=== PATIENT | female | born 1940 | race Caucasian/White ===

== ENCOUNTER → 2017-11-03 12:39 | Outpatient (CLI) | payer MEDICARE, OTHER ==
[~2017-11-03 12:39] MED LIST: NORVASC10 MG PO; PRAVACHOL80 MG PO
== END | disposition home or self-care (01) ==
LOC: D.US 12:39
DX: I65.23 Occlusion and stenosis of bilateral carotid arteries (principal)

== ENCOUNTER → 2018-04-23 09:06 | Outpatient (CLI) | payer MEDICARE, OTHER ==
--- NOTE | ~2018-04-23 | EC ---
PATIENT:WILLIAMS GARCIA DATE OF SERVICE: 04/23/18 SEX: F MEDICAL RECORD: [id number] DATE OF : 40 [facility] AGE OF PATIENT: 77 ADMISSION DATE: 04/23/18 REFERRING PHYSICIAN: INTERPRETING PHYSICIAN: ALTAF OLVERA MD ECHOCARDIOGRAM REPORT ECHO CHARGES 4 ECHO COMPLETE Date: 04/23 CLINICAL DIAGNOSIS: A-FIB/HTN/PALPITATIONS/CP ECHOCARDIOGRAPHIC MEASUREMENTS (adult normal given) AC root (d.<3.7cm) 3.3 cm LV Septum d (<1.2 cm> 1.1 cm Valve Excursion 1.9 cm LV Septum (systole) 1.5 cm Left Atria (s.<4.0cm> 3.5 cm LVPW d(<1.2cm) 1.2 cm RV (d.<2.3cm) 2.5 cm LVPW (sytole) 1.7 cm LV diastole(<5.6CM) 5.2 cm MV E-F(>70mm/sec) cm LV systole 4.0 cm LVOT Diameter 1.8 cm MV exc.(>10mm) cm Est.ejection fraction (50-75%) % DOPPLER: LVIT cm/sec A 55.0 cm/sec E 77.0 cm/sec LA cm/sec RVSP 40.0 mmHg LVOT 92.0 cm/sec AOP1/2T m/s Asc. Ao 105 cm/sec RVOT 52.0 cm/sec RA cm/sec PA 70.0 cm/sec AV Gradient Peak 4.4 mmHg AV Mean 2.1 mmHg AV Area 2.2 cm MV Gradient Peak 4.7 mmHg MV Mean 1.9 mmHg MV Area cm COMMENTS: [place] Instructor: Mp NGDSOE Instrument Tech: Mayur Olvera TAPE# PACS Pericardial Effusion N DATE OF SERVICE: PROCEDURE: Transthoracic echocardiogram. FINDINGS: 1. The left ventricle has moderate concentric left ventricular hypertrophy. The patient has grade II diastolic dysfunction. The patient has evidence of mild hypokinesis in the anterior septal region. Overall, ejection fraction is 40% to 45%. 2. Left atrium is normal size, shape and function. ECHOCARDIOGRAM REPORT [id number] WILLIAMS GARCIA 3. Aortic valve is normal. 4. The mitral valve has trace mitral regurgitation. 5. Tricuspid valve has trace regurgitation with an RVSP of 40 mmHg. 6. The right ventricle is normal size, shape and function. 7. The right atrium is normal size, shape and function. 8. There is no pericardial effusion. 9. The IVC is shown to be appropriate size and collapses. CONCLUSION: The patient has evidence of possible regional wall motion abnormalities with mildly decreased left ventricular ejection fraction, may be consistent with prior infarction. Further evaluation may be helpful. TRANSINT:[id number] Voice Confirmation ID: [id number] DOCUMENT ID: [id number] ALTAF OLVERA MD at 0719 CC: [id number] DICTATION DATE: 04/26/18 1055 DIRECTOR PRIVATE: 04/26/18 1305 DEP CLI 04/23/18 [address] [place] [address]
[~2018-04-23 09:06] MED LIST changes: +CORDARONE200 MG PO; +LEVOTHYROXINE50 MCG PO; +LISINOPRIL10 MG PO; +PLAVIX75 MG PO
== END | disposition home or self-care (01) ==
LOC: D.ECHO 09:06
DX: I48.91 Unspecified atrial fibrillation (principal); I10 Essential (primary) hypertension; R00.2 Palpitations; R07.9 Chest pain, unspecified; I73.9 Peripheral vascular disease, unspecified

== ENCOUNTER → 2018-05-12 06:49 | Outpatient (CLI) | payer MEDICARE, OTHER ==
[~2018-05-12] VITALS: Ht 152.4 cm; Wt 76.4 kg
--- NOTE | ~2018-05-12 | HEMODYNAMI ---
PATIENT:WILLIAMS GARCIA MEDICAL RECORD: [id number] : 40 LOCATION:[facility] ADMISSION DATE: 05/12/18 Generatedon:05/12/201810:43 Patient name: WILLIAMS GARCIA Patient #: [id number] SSN: : 1940 Date of study: 05/12/2018 Page: Of Hemodynamic Procedure Report Patient Data Patient Demographics Procedure consent was obtained First Name: WILLIAMS Gender: Female Last Name: JOSE : 1940 Middle Initial: A Age: 77 year(s) Patient #: [id number] Race: Unknown Additional ID: [id number] Contact details Address: [address] [place] [address] ROAD State: [place] City: [place] Zip code: [address] Past Medical History Allergies Allergen Reaction Date Comments Reported Other allergy 05/12/2018 AZITHROMYCIN, CRESTOR, LIPITOR Admission Admission Data Admission Date: 05/12/2018 Admission Time: 6:49 Height (in.): 5.7 BSA: 0.31 (m2) Height (cm.): 14.48 BMI: 3613.81 (kg/m2) Weight (lbs.): 167 Weight (kg.): 75.75 Lab Results Lab Result Date: 05/12/2018 Lab Result Time: 0:00 Biochemistry Name Units Result Min Max BUN mg/dl 14 --(--*-)-- 7 18 Creatinine mg/dl 0.9 --(-*--)-- 0.6 1.3 CBC Name Units Result Min Max Hemoglobin g/dl 16.1 --(--*-)-- 13.5 17.5 Procedure Procedure Types Cath Procedure Diagnostic Procedure LHC LHC w/Coronaries Peripheral Cath Diagnostic Procedure Cath Peripheral Four Vessel Arteriogram Renal Arteriogram Peripheral vascular Intervention Stent Stent-Arterial Inititial Procedure Description Procedure Date Procedure Date: 05/12/2018 Procedure Start Time: 9:00 Procedure End Time: 10:26 Procedure Staff Name Function Maximo Denney RN Speed Winder Nancy Peace RN Nurse Jaida Ag RT Scrub Cristo Porras MD Performing Physician Tommy Escobar RN Nurse Ariella Contreras RT Monitor Procedure Data Cath Procedure Fluoroscopy Diagnostic fluoroscopy Total fluoroscopy Time: time: 20.4 min 20.4 min Diagnostic fluoroscopy Total fluoroscopy dose: 939 dose: 939 mGy mGy Contrast Material Contrast Material Type Amount (ml) Isovue 370 170 Entry Location Entry Primary Successful Side Size Upsize Upsize Entry Closure Succes sful Closure Location (Fr) 1 (Fr) 2 (Fr) Remarks Device Remarks Femoral Right 5 Fr 6 Fr Exoseal artery Long Estimated blood loss: 10 ml Diagnostic catheters Device Type Used For End Catheter Placement MULTIPACK JL 4.0 5Fr Procedure catheter MULTIPACK 3DRC 5Fr Procedure catheter MULTIPACK Pigtail 5 Fr Procedure catheter MULTIPACK 3DRC 5Fr Procedure catheter Procedure Complications No complications Procedure Medications Medication Administration Route Dosage 0.9% NaCl I.V. 100 ml/hr Oxygen etCO2 Nasal cannula 2 l/min Heparin Flush Bag added to field 2 bags (1000units/500ml NS) Lidocaine 2% added to field 20 Versed I.V. 1 mg Fentanyl I.V. 50 mcg Vasotec I.V. 1.25 mg Heparin Bolus I.V. 2000 units Heparin Bolus I.V. 4000 units Nitroglycerin IC/IA I.A. 300 mcg Nitroglycerin IC/IA I.A. 300 mcg Hydralizine I.V. 20 mg Fentanyl I.V. 25 mcg Plavix P.O. 300 mg Fentanyl I.V. 25 mcg Zofran I.V. 4 mg Hemodynamics Rest BSA: 0.31 (m2) HGB: 16.1 (g/dl) O2 Consumption: Estimated: 27.82 (ml/min) O2 Con sumption indexed: Estimated:89.74 (ml/min/m) Heart Rate: 68 (bpm) Pressure Samples Time Site Value (mmHg) Purpose Heart Use Rate(bpm) 9:28 LV 199/17,27 EDP 70 9:28 LV 202/-1,22 EDP 70 10:05 AO 200/82(129) Snapshot 71 10:05 AO 200/80(128) Snapshot 71 Gradients Valve Time Site Site Mean SEP/DFP Peak To Heart Use 1 2 (mmHg) (sec/min) Peak Rate (mmHg) (bpm) Aortic 9:29 LV AO 72 Snapshots Pre Cath Intra NCS Post Cath Vital Signs Time Heart Resp SPO2 etCO2 NIBP (mmHg) Rhythm Pain Sedation Rate (ipm) (%) (mmHg) Status Level (bpm) 8:49:29 80 19 91 39.1 230/102(181) NSR 0 (11) 10(A) , No pain 8:54:17 79 14 90 0.7 198/92(159) NSR 0 (11) 9(A) , No pain 8:59:51 74 17 92 0.7 196/87(158) NSR 0 (11) 9(A) , No pain 9:05:25 71 15 92 19.5 185/73(140) NSR 0 (11) 9(A) , No pain 9:10:12 70 16 91 1.5 179/76(139) NSR 0 (11) 9(A) , No pain 9:15:01 71 16 92 0 177/76(143) NSR 0 (11) 9(A) , No pain 9:19:50 72 19 96 41.3 182/81(149) NSR 0 (11) 9(A) , No pain 9:24:41 72 14 92 0 186/80(153) NSR 0 (11) 9(A) , No pain 9:30:39 71 15 94 26.3 175/85(143) NSR 0 (11) 9(A) , No pain 9:35:28 71 19 93 26.3 176/82(138) NSR 0 (11) 9(A) , No pain 9:40:16 68 20 98 18.8 184/85(148) NSR 0 (11) 9(A) , No pain 9:45:05 71 19 97 28.6 203/89(168) NSR 0 (11) 9(A) , No pain 9:50:43 68 19 96 27.8 195/84(151) NSR 0 (11) 9(A) , No pain 9:55:34 66 19 97 19.5 199/85(147) NSR 0 (11) 9(A) , No pain 10:00:25 71 15 94 0 199/91(150) NSR 0 (11) 9(A) , No pain 10:05:22 65 19 98 19.5 202/77(163) NSR 0 (11) 9(A) , No pain 10:10:56 70 14 97 9 196/93(150) NSR 0 (11) 9(A) , No pain 10:15:38 70 16 98 34.6 164/75(134) NSR 0 (11) 9(A) , No pain 10:20:21 74 13 98 32.3 142/50(93) NSR 0 (11) 10(A) , No pain 10:25:08 73 12 98 24 140/60(110) NSR 0 (11) 10(A) , No pain Medications Time Medication Route Dose Verified Delivered Reason Notes Effectiveness by by 8:50:26 0.9% NaCl I.V. 100 Tommy Tommy Per physician ml/hr Shawn Escobar RN RN 8:50:36 Oxygen etCO2 2 Tommy Tommy Per physician Nasal l/min Shawn Escobar cannula RN RN 8:50:51 Heparin Flush added 2 Tommy Tommy used for Bag to bags Lorigan Shawn procedure (1000units/500ml field RN RN NS) 8:51:02 Lidocaine 2% added 20ml Tommy Tommy for local to vial Lorigan Lorigan anesthetic field RN RN 8:51:19 Versed I.V. 1 mg Tommy Tommy for sedation Shawn Escobar RN RN 8:51:27 Fentanyl I.V. 50 Tommy Tommy for sedation mcg Shawn Escobar RN RN 9:35:22 Vasotec I.V. 1.25 Tommy Tommy for mg Lorigan Shawn hypertension RN RN 9:40:04 Heparin Bolus I.V. 2,000 Tommy Tommy for units Lorigan Lorigan anticoagulation RN RN 9:48:51 Heparin Bolus I.V. 4000 Tommy Tommy for units Lorigan Lorigan anticoagulation RN RN 9:53:08 Nitroglycerin I.A. 300 Tommy Cristo for IC/IA mcg Shawn Porras MD hypertension RN 10:08:14 Nitroglycerin I.A. 300 Tommy Cristo for IC/IA mcg Shawn Porras MD hypertension RN 10:11:23 Hydralizine I.V. 20 mg Tommy Tommy for Lorigan Lorene hypertension RN RN 10:15:44 Fentanyl I.V. 25 Tommy Tommy for sedation mcg Shawn Escobar RN RN 10:16:27 Plavix P.O. 300 Tommy Tommy for mg Shawn Escobar antiplatelet RN RN therapy 10:24:13 Fentanyl I.V. 25 Tommy Tommy for back pain mcg Shawn Escobar RN RN 10:38:55 Zofran I.V. 4 mg Tommy Tommy for nausea Shawn Escobar RN lye peel operator Log Time Note 8:34:50 Maximo Denney RN sent for patient. Start room use. 8:34:51 Time tracking: Regular hours (M-F 7:00 - 5:00) 8:34:55 Plan of Care:Hemodynamics will remain stable., Cardiac rhythm will remain stable., Comfort level will be maintained., Respiratory function will remain adequate., Patient/ family verbilizes understanding of procedure., Procedure tolerated without complication., Recovers from procedure without complications.. 8:34:56 Signed procedure consent form obtained from patient. 8:37:48 Patient allergic to Other allergyAZITHROMYCIN, CRESTOR, LIPITOR 8:39:14 Lab Result : Hemoglobin 16.1 g/dl 8:39:14 Lab Result : Creatinine 0.9 mg/dl 8:39:14 Lab Result : BUN 14 mg/dl 8:39:26 Patient Height : 5.7 inches 8:39:34 Patient Weight : 167 lbs 8:41:50 Patient received from Pre/Post Procedure Room to CCL 1 Alert and oriented. Tansferred to table in Supine position. 8:41:52 Correct patient and procedure confirmed by team. 8:41:52 Warm blankets applied, and lucas hugger turned on for patient comfort. 8:41:53 ECG and BP/O2 sat monitors applied to patient. 8:45:18 H&P Date Dictated: 05/06/2018 Within 30 days and on chart., H&P Addendum completed by physician on day of procedure. (MUST COMPLETE FOR ALL OUTPATIENTS). 8:45:43 Pre-op teaching completed and patient verbalized understanding. 8:45:43 Pre-procedure instructions explained to patient. 8:45:46 Family in waiting room. 8:45:48 Patient NPO since Midnight. 8:45:49 Is the patient allergic to Iodine/contrast media? No. 8:45:50 Is patient on blood thinner?Yes 8:45:52 ACC The patient was administered the following blood thiners within the last 24 hours: ACCPlavix 8:45:54 Patient diabetic? No. 8:45:57 Previous problem with sedation/anesthesia? No ? 8:45:58 Snore? Yes 8:45:59 Sleep apnea? No 8:46:00 Deviated septum? No 8:46:01 Opens mouth fully? Yes 8:46:02 Sticks out tongue? Yes 8:46:08 Airway obstruction? Yes COPD 8:46:11 Dentures? No ? 8:46:35 Patient pain scale 0/10 ?. 8:46:42 Pre procedure: right dorsailis pedis pulse 2+ Normal; easily identifiable; not easily obliterated 8:46:44 Pre procedure: left dorsailis pedis pulse 2+ Normal; easily identifiable; not easily obliterated 8:47:41 Vital chart was started 8:48:38 Baseline sample Acquired. 8:48:50 Baseline sample Acquired. 8:49:28 IV patent on arrival in right antecubital with 0.9% NaCl at KVO. 8:49:30 Lab results completed and on chart. 8:49:41 Right groin area was prepped with chlora-prep and draped in sterile fashion 8:49:42 Sharps counted by scrub and verified by R.N. 8:49:42 Alarms reviewed by R. N. 8:49:47 Baseline sample Acquired. 8:49:50 Full Disclosure recording started 8:49:59 Baseline sample Acquired. 8:50:03 Rhythm: sinus rhythm 8:50:09 Use device set Femoral Dx 8:50:10 ACIST Syringe (15481) opened to sterile field. 8:50:11 Bag Decanter () opened to sterile field. 8:50:13 ACIST Manifold (33681) opened to sterile field. 8:50:13 ACIST Hand Control (56034) opened to sterile field. 8:50:14 Tegaderm 4 x 4 (1626W) opened to sterile field. 8:50:16 SHEATH Prelude 5Fr 0.035 (EBL-9T-25-035) opened to sterile field. 8:50:17 MICROPUNCTURE 4FR Cook (N14291) opened to sterile field. 8:50:18 Medline Cath Pack ([id number]) opened to sterile field. 8:50:19 DIAGNOSTIC Multipack 5Fr catheter set (CG4466) opened to sterile field. 8:50:19 DIAGNOSTIC WIRE .035 260cm J wire (641439) opened to sterile field. 8:50:25 Physician arrived 8:50:26 Final Timeout: patient, procedure, and site verified with staff and physician. All members of the team are in agreement. 8:50:26 --------ALL STOP TIME OUT------ 8:50:26 0.9% NaCl 100 ml/hr I.V. was administered by Tommy Escobar RN; Per physician; 8:50:29 Right groin site verified by team. 8:50:31 Physical assessment completed. ASA score P 2 - A patient with mild systemic disease as per Cristo Porras MD. 8:50:35 Sedation plan: IV Moderate Sedation Medication:Versed, Fentanyl 8:50:36 Oxygen 2 l/min etCO2 Nasal cannula was administered by Tommy Escobar RN; Per physician; 8:50:51 Heparin Flush Bag (1000units/500ml NS) 2 bags added to field was administered by Tommy Escobar RN; used for procedure; 8:51:02 Lidocaine 2% 20ml vial added to field was administered by Tommy Escobar RN; for local anesthetic; 8:51:19 Versed 1 mg I.V. was administered by Tommy Escobar RN; for sedation; 8:51:27 Fentanyl 50 mcg I.V. was administered by Tommy Escobar RN; for sedation; 8:59:04 Zero performed for pressure channel P1 8:59:24 Procedure started. 9:00:03 Local anesthetic to right femoral artery with Lidocaine 2% by Cristo Porras MD.INITIAL ACCESS ONLY 9:06:20 Access obtained with 4Fr micropunture. 9:06:36 A 5 Fr sheath was inserted into the Right Femoral artery 9:07:14 A MULTIPACK JL 4.0 5Fr catheter was advanced over the wire and used for Procedure. 9:10:36 Catheter exchanged over wire. 9:11:42 A MULTIPACK 3DRC 5Fr catheter was advanced over the wire and used for Procedure. 9:13:07 RCA angiography performed. 9:13:51 Right carotid angiography performed. 9:16:45 Left carotid angiography performed. 9:25:28 Right renal angiography performed. 9:25:28 Left renal angiography performed. 9:26:11 Catheter exchanged over wire. 9::33 A MULTIPACK Pigtail 5 Fr catheter was advanced over the wire and used for Procedure. 9::27 LV gram done using DUGAN 9::31 Injector settings: Ml/sec: 12, Volume: 8, 9:28:52 LV hemodynamics recorded. 9:30:26 EF : 70 % 9:30:27 Catheter exchanged over wire. 9:33:49 COPILOT Valve Control (0051326) opened to sterile field. 9:34:08 GLIDE WIRE ANGLE 260cm (QQ3984) opened to sterile field. 9:34:18 A MULTIPACK 3DRC 5Fr catheter was advanced over the wire and used for Procedure. 9:35:22 Vasotec 1.25 mg I.V. was administered by Tommy Escobar RN; for hypertension; 9:36:45 TORQUE DEVICE PLASTIC .038 ( TD01) opened to sterile field. 9:39:35 Catheter exchanged over wire. 9:39:56 SHEATH 6FR Brite Tip 90cm ([id number]) opened to sterile field. 9:40:04 Heparin Bolus 2,000 units I.V. was administered by Tommy Escobar RN; for anticoagulation; 9:41:38 Sheath upsized to a 6 Fr Long. 9:44:18 GLIDE WIRE ADVANCED 9:46:17 INFLATOR Merit Leonora (VN7990) opened to sterile field. 9:48:51 Heparin Bolus 4000 units I.V. was administered by Tommy Escobar RN; for anticoagulation; 9:49:21 Wire advanced across lesion. 9:49:42 Inflate balloon Inflation number: 1 A POWERFLEX PRO 4.0 x 40 x 135cm balloon ([id number]) was prepped and advanced across the Proximal Subclavian, Left, then inflated to 10 HOLDEN for 0:00 (min:sec). 9:51:14 Balloon removed over the wire. 9:53:08 Nitroglycerin IC/IA 300 mcg I.A. was administered by Cristo Porras MD; for hypertension; 9:55:26 Place stent Inflation Number: 2 A HAYLEE 6 x 39 x 135 stent ([id number]) was prepped and advanced across the Proximal Subclavian, Left. The stent was deployed at 10 HOLDEN for 0:00 (min:sec). 9:57:44 Stent catheter was removed intact over wire. 10:00:39 Inflate balloon Inflation number: 3 A POWERFLEX PRO 7.0 x 20 x 135 cm balloon ([id number]) was prepped and advanced across the Proximal Subclavian, Left, then inflated to 4 HOLDEN for 0:00 (min:sec). 10:01:09 Inflation number: 4 The POWERFLEX PRO 7.0 x 20 x 135 cm balloon ([id number]) was reinflated across the Proximal Subclavian, Left, to 8 HOLDEN for 0:00 (min:sec). 10:02:42 Inflation number: 5 The POWERFLEX PRO 7.0 x 20 x 135 cm balloon ([id number]) was reinflated across the Proximal Subclavian, Left, to 13 HOLDEN for 0:00 (min:sec). 10:03:28 Balloon removed over the wire. 10:05:29 SHEATH 6FR [place] (QWZ993) opened to sterile field. 10:06:05 LONG SHEATH EXCHANGED FOR SHORT SHEATH 10:06:24 EXOSEAL 6Fr (EX600) opened to sterile field. 10:08:14 Nitroglycerin IC/IA 300 mcg I.A. was administered by Cristo Porras MD; for hypertension; 10:11:07 Procedure type changed to Cath procedure, Diagnostic procedure, LHC, LHC w/Coronaries, Peripheral Cath Diagnostic Procedure, Cath Peripheral, Four Vessel Arteriogram, Renal Arteriogram, Peripheral vascular Intervention, Stent, Stent-Arterial Inititial 10:11:23 Hydralizine 20 mg I.V. was administered by Tommy Escobar RN; for hypertension; 10:13:33 Sheath removed intact; hemostasis achieved with Exoseal to the Right Femoral artery. 10:13:34 Procedure ended.(Physican Out) 10:14:33 Fluoroscopy time 20.40 minutes. 10:14:37 Fluoroscopy dose: 939 mGy 10:14:37 Flurop Dose total: 939 10:15:44 Fentanyl 25 mcg I.V. was administered by Tommy Escobar RN; for sedation; 10:15:55 Contrast amount:Isovue 370 170ml. 10:15:57 Sharps counted by scrub and verified by R.N. 10:16:02 Post-op/insertion site Right Femoral artery dressed using a 4 x 4 and Tegaderm. 10:16:27 Plavix 300 mg P.O. was administered by Tommy Escobar RN; for antiplatelet therapy; 10::38 Post-procedure physical assessment completed. ASA score P 2 - A patient with mild systemic disease as per Cristo Porras MD. 10:22:40 Post procedure rhythm: unchanged. 10::42 Estimated blood loss: 10 ml 10::44 Patient needs reinforcement of post procedure teaching. ::44 Post procedure instruction explained to patient.Patient verbalizes understanding. 10:22:53 FEMSTOP Gold (P29114) opened to sterile field. 10:22:59 Femstop placed over the right femoral artery at 170 mmHg. Hemostasis achieved. 10:24:13 Fentanyl 25 mcg I.V. was administered by Tommy Escobar RN; for back pain; 10:26:02 Procedure and supply charges have been captured, reviewed, submitted and are correct. 10:26:04 Procedure Complication : No complications 10:26:06 See physician's report for complete and final results. 10:26:06 Vital chart was stopped 10::08 Report given to Pre/Post Procedure Room. 10:26:11 Patient transfered to Pre/Post Procedure Room with Bed. 10:26:13 Full Disclosure recording stopped 10:26:13 Procedure ended. 10:26:19 End room use (Document Last) 10:38:55 Zofran 4 mg I.V. was administered by Tommy Escobar RN; for nausea; Intervention Summary Intervention Notes Time ActionType Lesion and Equipment Action# Pressure Duration Attributes Used 9:49:42 Inflate Proximal POWERFLEX 1 10 00:00 balloon Subclavian, PRO 4.0 x Left 40 x 135cm balloon ([id number]) 9:55:26 [address] stent Proximal HAYLEE 6 x 2 10 00:00 Subclavian, 39 x 135 Left stent ([id number]) 10:00:39 Inflate Proximal POWERFLEX 3 4 00:00 balloon Subclavian, PRO 7.0 x Left 20 x 135 cm balloon ([id number]) 10:01:09 Reinflate Proximal POWERFLEX 4 8 00:00 balloon Subclavian, PRO 7.0 x Left 20 x 135 cm balloon ([id number]) 10:02:42 Reinflate Proximal POWERFLEX 5 13 00:00 balloon Subclavian, PRO 7.0 x Left 20 x 135 cm balloon ([id number]) Device Usage Item Name Manufacture Quantity Catalog Number Hospital Part Current M inimal Lot# / Charge Number Stock Stock Serial# Code ACIST Syringe Acist 1 63392 645608 940013 152564 2 0 (78557) [employer] Bag Decanter Microtek 1 2001S 296525 38685 428547 5 (2001S) Medical Inc. ACIST Hand Acist 1 47943 983140 053621 240824 5 Control (11094) [employer] ACIST Manifold Acist 1 83311 483029 593847 763713 5 (23915) [employer] Tegaderm 4 x 4 3M 1 1626W 085126 181178 086571 5 (1626W) SHEATH Prelude Merit 1 [place]-3A-53-035 815280 020347 628039 5 5Fr 0.035 Medical (XQE-2B-33-035) MICROPUNCTURE Cook Medical 1 M26664 336913 257267 153367 5 4FR [employer] (F93726) Medline Cath Cardinal 1 [id number] 335287 33999 165875 5 Pack Health ([id number]) DIAGNOSTIC WIRE St Roc 1 139122 544480 203634 024536 3 0 .035 260cm J wire (033849) DIAGNOSTIC Cardinal 1 GT8485 832071 63811 042598 3 0 Multipack 5Fr Health catheter set (XG1882) MULTIPACK JL Cardinal 1 957616 5 4.0 5Fr Health catheter MULTIPACK 3DRC Cardinal 1 540188 5 5Fr catheter Health MULTIPACK Cardinal 1 695949 5 Pigtail 5 Fr Health catheter COPILOT Valve [place] 1 3320101 891865 965792 259388 5 Control Vascular (7481985) GLIDE WIRE Terumo 1 LK7704 255641 722946 635686 5 ANGLE 260cm (SW1102) TORQUE DEVICE Hunters 1 TD01 391411 663644 843182 5 PLASTIC .038 ( Scientific TD01) SHEATH 6FR Cardinal 1 [id number] 782279 674919 780215 5 Brite Tip 90cm Health (507602Y) INFLATOR Merit Merit 1 AH6906 875894 571765 494600 1 5 [place] (GL5222) POWERFLEX PRO Cardinal 1 [id number] 343332 985563 602964 5 4.0 x 40 x Health 135cm balloon (4012723R) HAYLEE 6 x 39 Cardinal 1 [id number] 724797 31018 181496 5 x 135 stent Health ([id number]) POWERFLEX PRO Cardinal 1 [id number] 041041 933303 338198 5 7.0 x 20 x 135 Health cm balloon (8254570E) SHEATH 6FR Terumo 1 CUS447 263983 004289 804791 4 0 [place] (LJE029) EXOSEAL 6Fr Cardinal 1 EX600 758816 174106 277089 1 0 (EX600) Health FEMSTOP Gold St Roc 1 H56396 727102 473504 825167 5 ([id number]) Signature Audit [place] Stage Time Signature Unsigned Intra-Procedure 05/12/2018 Ariella Contreras 10:30:10 AM RT(R) RT(R) 05/12/2018 10:38:24 AM Intra-Procedure 05/12/2018 Ariella Contreras 10:43:32 AM RT(R) Signatures Monitor : Ariella Contreras Signature : RT Date : Time : [address] [place] [address]
--- NOTE | ~2018-05-12 | OP ---
PATIENT NAME: WILLIAMS GARCIA MEDICAL RECORD: [id number] :40 LOCATION:D[facility] ADMISSION DATE: SURGEON: ALTAF OLVERA MD DATE OF OPERATION: 05/12/2018 PROCEDURE: Left heart catheterization, left ventriculogram, coronary angiogram, 4-vessel angiogram, ORE SMELTER of the left subclavian times 4, intra-arterial stenting of the left subclavian post-stenting angioplasty. DESCRIPTION OF PROCEDURE: The patient was brought into the cardiac catheterization lab in stable condition. Both groins were sterilely prepped and draped. The patient had a 6-[place] sheath placed into the right common femoral artery in a retrograde fashion. The patient then had a coronary diagnostic catheter utilized to intubate the left coronary artery, the right coronary artery, and the left ventricular cavity respectively and angiography was performed in multiple projections. We then turned our attention to the 4-vessel angiography where we were able to intubate the innominate artery and angiography was performed in multiple projections, including selective angiography of the vertebral artery and the right common carotid artery. We then placed the catheter selectively into the left subclavian vessel and selectively into the left common carotid artery and angiography was performed in multiple projections. We then pulled the catheter into the abdominal aorta where we selectively engaged the left renal artery and the right renal artery respectively. Angiography was performed in 2 projections. We then did pullback angiography and pressure gradients across the abdominal aorta and with runoff into the right iliac system and the right common femoral artery looking at the sheath insertion site. We then turned our attention to interventional purposes and we exchanged the diagnostic catheters for a long glide sheath that was 6-[place]. We intubated the left subclavian artery, which was 100% occluded. We were then able to use a wire atherectomy and penetrate to the 100% occlusion of the left subclavian artery and get distal wire position with a 0.035 inch Glidewire. We were then able to take a 4.0 x 40 balloon into the area of 100% stenosis and deployed at nominal pressures. We were then able to exchange the balloon for a 6.0 x 39 stent balloon expandable and taking that to nominal pressures. We were then able to take a 7.0 x 20 into the distal stent aspect and we were able to expand that to nominal pressures to a final dimension of 6.8. We were then able to take it at higher nominal pressures in the mid and ostium of the stent to a final dimension of 7. We were then able to take post-view angiography. Intra-arterial nitroglycerin was given for a total of 600 mcg through the procedure. Procedure was terminated successfully. FINDINGS: 1. The left main has heavy calcified plaquing with mild stenosis in the range of 40%. 2. The LAD is shown to have the continuation of the heavy calcification into the ostium and proximal portion of the vessel with resultant stenosis of 40%. The mid and distal vessel of the LAD is also heavily calcified with a distal 50% to 60% stenosis. 3. The circumflex is shown to have continuation of the left main, heavy calcification with a 60% stenosis in the mid vessel and there were angiographic characteristics suggestive of higher grade stenosis in the mid vessel of the circumflex, possibly 70% and certainly an intermediate lesion. OPERATIVE REPORT [id number] WILLIAMS GARCIA 4. The RCA is a small nondominant vessel with a 50% diffuse stenosis. 5. The innominate artery is widely patent and large vessel, heavily calcified. 6. The right common carotid artery is shown to have distal plaquing. 7. The right subclavian vessel is shown to have 30% stenosis. 8. The right internal mammary artery is widely patent. 9. The right vertebral artery is widely patent and actually a large sized vessel and it is shown to collateralize via the basilar system into the left vertebral. The left vertebral is retrograde flow and fills the left subclavian vessel, which is 100% occluded in the ostium. 10. The right external carotid artery is 100% occluded. 11. Intracerebral portion of the right system shows no crossover and the middle cerebral artery is widely patent. 12. The left subclavian artery is 100% occluded. 13. Left common carotid artery has mild plaquing. 14. The left external carotid artery is widely patent with mild atherosclerotic changes. 15. The left external carotid artery is widely patent. 16. The left renal artery is widely patent. No evidence of renal artery stenosis. 17. The right renal artery is widely patent. No evidence of renal artery stenosis. 18. The intra-abdominal, subrenal abdominal aorta is widely patent with moderate calcification with moderate atherosclerotic changes into the bilateral right and left common iliac artery. The right external iliac artery is widely patent as well as the right common femoral artery. HEMODYNAMICS: 1. The left ventricular ejection fraction is 70%, hyperdynamic, and EDP was mildly elevated at 15 to 20 mmHg, post the aortic notch was shown to be normal. 2. There is no gradient across the aortic valve. 3. There is no significant mitral regurgitation. INTERVENTION: The left subclavian artery is 100% occluded. Status post angioplasty was 60% occluded. Status post stenting and status post stenting angioplasty reduced that stenosis to less than 5% residual. No gradient across the stented portion and excellent flow reversal of vertebral artery flow from retrograde to antegrade. 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 Diffuse calcific atherosclerotic changes throughout the cerebrovascular system as well as the abdominal aorta and thoracic aorta. Preserved left ventricular systolic function. RECOMMENDATIONS: Can continue aggressive antihypertensive control, dual antiplatelet therapy for at least 60-90 days, treat medically the intermediate stenosis of the coronary bed at this point in time. However, despite aggressive medical management, the patient still has significant symptoms. It would be reasonable to go forward with possible angioplasty and stenting of the circumflex in the near future. TRANSINT:[id number] Voice Confirmation ID: [id number] DOCUMENT ID: [id number] OPERATIVE REPORT [id number] WILLIAMS GARCIA,ALTAF Juan MD at 1127 CC: [id number] DICTATION DATE: 05/12/18 1030 TYPEWRITER MECHANIC: 05/12/18 1108 [facility] [address] [place] [address]
[2018-05-12 07:27] VITALS: BP 163/90; Ht 152.4 cm; Wt 76.4 kg
[2018-05-12 07:28] LABS: BASOPHILS 0.3 % (0-2); EOSINOPHILS 1.8 % (0-7); HEMATOCRIT 48.5 % (36.0-48.0); HEMOGLOBIN 16.1 g/dL (12-16); IMMATURE GRANULOCYTES 0.1 % (0-5); LYMPHOCYTES 32.7 % (15-50); MCH 31.6 pg (26.0-34.0); MCHC 33.2 g/dL (31.0-37.0); MCV 95.3 fL (80.0-100.0); MEAN PLATELET VOLUME 10.5 fL (7.4-10.4); MONOCYTES 10.4 % (2-11); NEUTROPHILS 54.7 % (40-80); PLATELET COUNT 194 10x3/uL (130-400); RBC 5.09 10x6/uL (4.00-5.40); RDW 13.8 % (11.5-14.5); WBC 7.4 10x3/uL (4.8-10.8)
[2018-05-12 07:50] LABS: ANION GAP 8.8 mmol/L (8-16); CALCIUM 8.6 mg/dL (8.5-10.1); CARBON DIOXIDE 32.5 mmol/L (21.0-32.0); CREATININE - SERUM 0.9 mg/dL (0.6-1.3); POTASSIUM - SERUM 4.3 mmol/L (3.5-5.1)
== END | disposition home or self-care (01) ==
LOC: D.CATH 06:49
PROVIDERS: Internal Medicine Cardiovascular Disease
DX: I25.10 Atherosclerotic heart disease of native coronary artery without angina pectoris (principal); I70.203 Unspecified atherosclerosis of native arteries of extremities, bilateral legs; I77.1 Stricture of artery; I65.23 Occlusion and stenosis of bilateral carotid arteries; I10 Essential (primary) hypertension; Z01.812 Encounter for preprocedural laboratory examination; G45.8 Other transient cerebral ischemic attacks and related syndromes

== ENCOUNTER → 2018-05-20 16:37 | Outpatient (CLI) | payer MEDICARE, OTHER ==
[2018-05-20 17:44] LABS: ANION GAP 12.5 mmol/L (8-16); CALCIUM 8.6 mg/dL (8.5-10.1); CARBON DIOXIDE 30.1 mmol/L (21.0-32.0); CHOL - HDL RATIO 4.9 ratio (2.3-4.1); LDL-HDL RATIO 3.4 ratio (1.5-3.5); POTASSIUM - SERUM 4.6 mmol/L (3.5-5.1)
== END | disposition home or self-care (01) ==
LOC: D.LABREF 16:37
PROVIDERS: Internal Medicine Cardiovascular Disease
DX: I10 Essential (primary) hypertension (principal)

== ENCOUNTER → 2018-06-28 17:54 | Outpatient (CLI) | payer MEDICARE, OTHER ==
[2018-06-28 18:58] LABS: CHOL - HDL RATIO 2.3 ratio (2.3-4.1)
== END | disposition home or self-care (01) ==
LOC: D.LABREF 17:54
PROVIDERS: Internal Medicine Cardiovascular Disease
DX: I10 Essential (primary) hypertension (principal)

== ENCOUNTER → 2018-09-14 08:00 | Outpatient (CLI) | payer MEDICARE, OTHER | END | disposition home or self-care (01) | LOC: D.CT 08:00 | DX: R22.1 Localized swelling, mass and lump, neck (principal) ==

== ENCOUNTER → 2018-11-22 09:32 | Outpatient (CLI) | payer MEDICARE, OTHER | END | disposition home or self-care (01) | LOC: D.US 09:32 | DX: I65.23 Occlusion and stenosis of bilateral carotid arteries (principal) ==

== ENCOUNTER 2019-05-12 06:40 | Outpatient (CLI) | payer MEDICARE, BC ==
[~2019-05-12] VITALS: Ht 170.2 cm; Wt 79.1 kg
--- NOTE | ~2019-05-12 | HEMODYNAMI ---
PATIENT:WILLIAMS GARCIA MEDICAL RECORD: [id number] : 40 LOCATION:[facility] ADMISSION DATE: 05/12/19 Generatedon:05/13/20198:26 Patient name: WILLIAMS GARCIA Patient #: [id number] SSN: [id number] : 1940 Date of study: 05/12/2019 Page: Of Hemodynamic Procedure Report Patient Data Patient Demographics Procedure consent was obtained First Name: WILLIAMS Gender: Female Last Name: JOSE : 1940 Middle Initial: A Age: 78 year(s) Patient #: [id number] Race: Unknown SSN: [id number] Additional ID: [id number] Contact details Address: [address] [place] [address] ROAD State: [place] City: [place] Zip code: [address] Past Medical History Performed procedures and imaging results Date Procedure Procedure Results Comments Stress testing Positive->Intermediate with SPECT MPI risk History of disease Date Diagnosis Comments Hypertension Arrhythmias - Sinus Node->Sinus arrhythmia Allergies Allergen Reaction Date Comments Reported Other allergy 05/12/2018 AZITHROMYCIN, CRESTOR, LIPITOR Lipitor 05/12/2019 Admission Admission Data Admission Date: 05/12/2019 Admission Time: 6:40 Arrival Date: 05/12/2019 Arrival Time: 0:00 Admit Source: Other Insurance Payor: Private health insurance, Medicare [facility] #: [id number] Height (in.): 67 BSA: 1.91 (m2) Height (cm.): 170.18 BMI: 27.25 (kg/m2) Weight (lbs.): 174 Weight (kg.): 78.93 Lab Results Lab Result Date: 05/12/2019 Lab Result Time: 0:00 Biochemistry Name Units Result Min Max BUN mg/dl 19 --(----)*- 7 18 Creatinine mg/dl 0.9 --(-*--)-- 0.6 1.3 eGFR ml/min 78 *-(----)-- 90 120 AM eGFR ml/min 64.02066 *-(----)-- 90 120 NONAFRICAN CBC Name Units Result Min Max Hemoglobin g/dl 16.4 --(--*-)-- 13.5 17.5 Procedure Procedure Types Cath Procedure Diagnostic Procedure [facility] w/Coronaries FFR/IVUS Intra-Coronary IVUS Initial IVUS Additional x2 Procedure Description Procedure Date Procedure Date: 05/12/2019 Procedure Start Time: 9:16 Procedure End Time: 9:49 Procedure Staff Name Function Jay Grace RT Scrub Nancy Peace RN Nurse Royce Patricia MD Performing Physician Gm Carl RT Monitor Orly Deutsch RT Scrub Indication Angina Syncope Procedure Data Cath Procedure Fluoroscopy Diagnostic fluoroscopy Total fluoroscopy Time: 5.7 time: 5.7 min min Diagnostic fluoroscopy Total fluoroscopy dose: dose: 1027 mGy 1027 mGy Contrast Material Contrast Material Type Amount (ml) Isovue 300 130 Entry Location Entry Primary Successful Side Size Upsize Upsize Entry Closure Succes sful Closure Location (Fr) 1 (Fr) 2 (Fr) Remarks Device Remarks Femoral Right 5 Fr 6 Fr Exoseal artery Short Diagnostic catheters Device Type Used For End Catheter Placement MULTIPACK JL 4.0 5Fr Left Coronary catheter Angiography MULTIPACK 3DRC 5Fr Right Coronary catheter Angiography MULTIPACK Pigtail 5 Fr LV Angiography catheter Procedure Complications No complications Procedure Medications Medication Administration Route Dosage Oxygen etCO2 Nasal cannula 2 l/min Lidocaine 2% added to field 20 Heparin Flush Bag added to field 2 bags (1000units/500ml NS) 0.9% NaCl I.V. 100 ml/hr Versed I.V. 1 mg Fentanyl I.V. 50 mcg Heparin Bolus I.V. 6000 units Versed I.V. 1 mg Fentanyl I.V. 50 mcg Hemodynamics Rest BSA: 1.91 (m2) HGB: 16.4 (g/dl) O2 Consumption: Estimated: 179.39 (ml/min) O2 Co nsumption indexed: Estimated:93.92 (ml/min/m) Heart Rate: 80 (bpm) Pressure Samples Time Site Value (mmHg) Purpose Heart Use Rate(bpm) 9:25 LV 141/-1,13 EDP 67 9:25 LV 160/0,13 Pullback 70 9:25 AO 146/46(84) Pullback 70 Gradients Valve Time Site 1 Site 2 Mean SEP/DFP Peak To Heart Use (mmHg) (sec/min) Peak Rate (mmHg) (bpm) Aortic 9:25 LV AO 14 25 14 70 160/0,13 146/46(84) Calculations Valve P-P Mean Valve Index Valve Source Name Gradient Area Flow (cm2) Aortic 14 14 14 14 Snapshots Pre Cath Intra NCS Post Cath Vital Signs Time Heart Resp SPO2 etCO2 NIBP (mmHg) Rhythm Pain Sedation Rate (ipm) (%) (mmHg) Status Level (bpm) 9:00:57 76 14 96 43 218/105(176) NSR 0 (11) 10(A) , No pain 9:05:23 75 13 94 15.1 190/88(151) NSR 0 (11) 10(A) , No pain 9:09:52 73 13 95 10.5 173/73(138) NSR 0 (11) 10(A) , No pain 9:14:18 71 14 97 6 170/76(131) NSR 0 (11) 10(A) , No pain 9:18:40 71 13 96 0.7 156/64(101) NSR 0 (11) 9(A) , No pain 9:23:04 70 12 95 5.2 148/58(99) NSR 0 (11) 9(A) , No pain 9:27:24 71 13 96 3.7 148/62(115) NSR 0 (11) 9(A) , No pain 9:31:42 70 14 96 3 159/69(113) NSR 0 (11) 9(A) , No pain 9:36:05 70 11 96 3.7 153/67(118) NSR 0 (11) 9(A) , No pain 9:40:25 71 13 96 3.7 164/67(132) NSR 0 (11) 9(A) , No pain 9:44:43 68 13 97 6 177/82(131) NSR 0 (11) 10(A) , No pain 9:49:07 69 8 98 3 188/82(144) NSR 0 (11) 10(A) , No pain Medications Time Medication Route Dose Verified Delivered Reason Notes Effectiveness by by 9:04:04 Oxygen etCO2 2 Royce Buffie used for Nasal l/min Jose M Peace internist cannula 9:04:12 Lidocaine 2% added 20ml Royce Royce for local to vial Jose M Patricia MD anesthetic field 9:04:17 Heparin Flush added 2 Royce Royce used for Bag to bags Jose M Patricia MD procedure (1000units/500ml field NS) 9:04:26 0.9% NaCl I.V. 100 Royce Buffie Per physician ml/hr Jose M Peace RN 9:13:52 Versed I.V. 1 mg Royce Buffie for sedation Jose M Peace RN 9:13:58 Fentanyl I.V. 50 Royce Buffie for sedation mcg Jose M Peace RN 9:20:00 Fentanyl I.V. 50 Royce Buffie for sedation mcg Jose M Peace RN 9:20:56 Versed I.V. 1 mg Royce Buffie for sedation Jose M Peace RN 9:29:53 Heparin Bolus I.V. 6000 Royce Buffie for verifi ed units Jose M Peace RN anticoagulation with dr patricia Procedure Log Time Note 7:20:49 Patient Weight : 174 lbs 7:21:20 Patient Height : 67 inches 7:25:58 Arrival Date: 05/12/2019 12:00:00 AM 7:26:11 Insurance Payor : Private health insurance, Medicare 7:27:49 Admit Source: Other 7:30:27 Diagnostic Cath Status : Elective 8:07:27 PCI Cath Status : Salvage 8:08:18 Procedure type changed to Cath procedure, Diagnostic procedure, LHC, LHC w/Coronaries, FFR/IVUS, Intra-Coronary IVUS Initial, IVUS Additional x2 8:11:14 Indication : Angina 8:11:23 Indication : Syncope 8:45:02 ACC Patient presents with Stable Angina CCS Anginal Class 1--Ordinary physical activity does not cause angina, angina occurs with strenuos, rapid, or prolonged activity.. 8:45:41 ACCPatient has been prescribed/administered the following anti-anginal medication within the last 2 weeks: Long-Acting Nitrates 8:45:46 Procedure Status Elective Heart Cath (OP). 8:45:48 Gmmichel Tavarezit RT(R) sent for patient. Start room use. 8:45:50 Time tracking: Regular hours (M-F 7:00 - 5:00) 8:45:54 Plan of Care:Hemodynamics will remain stable., Cardiac rhythm will remain stable., Comfort level will be maintained., Respiratory function will remain adequate., Patient/ family verbilizes understanding of procedure., Procedure tolerated without complication., Recovers from procedure without complications.. 8:58:26 Patient received from Pre/Post Procedure Room to CCL 2 Alert and oriented. Tansferred to table in Supine position. 8:58:29 Warm blankets applied, and lucas hugger turned on for patient comfort. 8:58:31 Signed procedure consent form obtained from patient. 8:58:32 Correct patient and procedure confirmed by team. 8:58:33 ECG and BP/O2 sat monitors applied to patient. 8:58:34 Vital chart was started 8:58:37 Baseline sample Acquired. 8:58:49 Rhythm: sinus rhythm 8:58:50 Full Disclosure recording started 8:59:04 H&P Date Dictated: 04/27/2019 Within 30 days and on chart., H&P Addendum completed by physician on day of procedure. (MUST COMPLETE FOR ALL OUTPATIENTS). 8:59:05 Pre-procedure instructions explained to patient. 8:59:06 Pre-op teaching completed and patient verbalized understanding. 8:59:07 Family in waiting room. 8:59:09 Patient NPO since Midnight. 8:59:16 Patient allergic to Lipitor 9:00:05 Is the patient allergic to Iodine/contrast media? No. 9:00:08 Is patient on blood thinner?No 9:00:10 Patient diabetic? No. 9:00:11 ----Pre-sedation anethsthesia assessment.---- 9:00:14 Previous problem with sedation/anesthesia? No ? 9:00:15 Snore? Yes 9:00:16 Sleep apnea? No 9:00:18 Deviated septum? No 9:00:19 Opens mouth fully? Yes 9:00:20 Sticks out tongue? Yes 9:00:23 Airway obstruction? No ? 9:00:27 Dentures? Yes in tight 9:00:31 Pre procedure: right dorsailis pedis pulse 2+ Normal; easily identifiable; not easily obliterated 9:00:36 Patient pain scale 0/10 ?. 9:00:40 IV patent on arrival in left antecubital with 0.9% [facility]. 9:01:13 Lab Result : eGFR NONAFRICAN 64.41082 ml/min :: Lab Result : Hemoglobin 16.4 g/dl : Lab Result : eGFR AM 78 ml/min : Lab Result : BUN 19 mg/dl : Lab Result : Creatinine 0.9 mg/dl 9::14 pt had dried blood on rt side of neck [facility], pt states had a cyst that "busted". says she sees dr morrison for this. cleaned and 4x4 applied. ::16 Lab results completed and on chart. 9::19 Right groin area was prepped with chlora-prep and draped in sterile fashion 9:: Sharps counted by scrub and verified by R.N. :: Alarms reviewed by Андрей N. 9:: Physician paged 9:04:04 Oxygen 2 l/min etCO2 Nasal cannula was administered by Nancy Peace RN; used for procedure; ::12 Lidocaine 2% 20ml vial added to field was administered by Royce Patricia MD; for local anesthetic; 9:04:17 Heparin Flush Bag (1000units/500ml NS) 2 bags added to field was administered by Royce Patricia MD; used for procedure; :: 0.9% NaCl 100 ml/hr I.V. was administered by Nancy Peace RN; Per physician; ::23 --------ALL STOP TIME OUT------ :: Physician arrived 9:11:24 Final Timeout: patient, procedure, and site verified with staff and physician. All members of the team are in agreement. 9:11: Right groin site verified by team. 9:11:29 Fire Safety Assessment: A--An alcohol-based skin anteseptic being used preoperatively., C--Open oxygen or nitrous oxide is being used., D--An ESU, laser, or fiber-optic light is being used. 9:11:33 Physical assessment completed. ASA score P 2 - A patient with mild systemic disease as per Royce Patricia MD. 9:11:41 2) 60-89 Mildly reduced kidney function, and other findings (as for stage 1) point to kidney disease. 9:11:54 Maximum allowable contrast dose (3.7 X eGFR X 0.75)177 ml. 9:11:58 Sedation plan: IV Moderate Sedation Medication:Versed, Fentanyl 9:13:52 Versed 1 mg I.V. was administered by Nancy Peace RN; for sedation; 9:13:58 Fentanyl 50 mcg I.V. was administered by Nancy Peace RN; for sedation; 9:15:09 Use device set Femoral Dx 9:15:11 Medline Cath Pack ([id number]) opened to sterile field. 9:15:11 Bag Decanter (2002S) opened to sterile field. 9:15:13 ACIST Syringe (01599) opened to sterile field. 9:15:14 ACIST Hand Control (63306) opened to sterile field. 9:15:15 ACIST Manifold (03871) opened to sterile field. 9:15:17 DIAGNOSTIC Multipack 5Fr catheter set (RU4680) opened to sterile field. 9:15:22 Tegaderm 4 x 4 (1626W) opened to sterile field. 9:15:24 SHEATH 5FR [place] (CGJ553) opened to sterile field. 9:15:25 EMERALD Guide Wire (414-161) opened to sterile field. 9:15:56 Zero performed for pressure channel P1 9:16:42 Procedure started. 9:16:50 Local anesthetic to right femoral artery with Lidocaine 2% by Royce Patricia MD.INITIAL ACCESS ONLY 9:16:57 A 5 Fr sheath was inserted into the Right Femoral artery 9:17:35 A MULTIPACK JL 4.0 5Fr catheter was advanced over the wire and used for Left Coronary Angiography. 9:20:00 Fentanyl 50 mcg I.V. was administered by Nancy Peace RN; for sedation; 9:20:40 LCA angiography performed. 9:20:41 Catheter exchanged over wire. 9:20:51 A MULTIPACK 3DRC 5Fr catheter was advanced over the wire and used for Right Coronary Angiography. 9:20:56 Versed 1 mg I.V. was administered by Nancy Peace RN; for sedation; 9:21:41 RCA angiography performed. 9:24:42 Catheter exchanged over wire. 9:24:47 A MULTIPACK Pigtail 5 Fr catheter was advanced over the wire and used for LV Angiography. 9:24:53 LV gram done using DUGAN 9:24:56 LV hemodynamics recorded. 9:25:04 Injector settings: Ml/sec: 10, Volume: 20, 9:25:32 EF : 55 % 9::55 Catheter exchanged over wire. 9:27:56 INFLATOR Merit Jeffk (XS3646) opened to sterile field. 9:27:56 SHEATH 6FR [place] (VHY235) opened to sterile field. 9:27:57 BMW 300cm [place] 2 J wire ([id number]) opened to sterile field. 9:27:57 TUBING High Pressure Extension Tubing (Jose M) ([id number]) opened to sterile field. 9:27:58 [place] IVUS Catheter (04874F) opened to sterile field. 9:27:58 GUIDE 6FR XBLAD 3.5 catheter ([id number]) opened to sterile field. 9:28:09 Sheath upsized to a 6 Fr Short. 9:28:25 ACC Pre-intervention UMANG Flow is 3. 9:28:37 ACCDominant side:Co-Dominant 9:29:36 6 Fr XBLAD 3.5 guide catheter was inserted over the wire 9::53 Heparin Bolus 6000 units I.V. was administered by Nancy Peace RN; for anticoagulation; verified with dr patricia 9:29:57 BMW2 wire advanced. 9:30:00 FFR/IVUS 9:30:02 IVUS catheter advanced over wire. 9:30:48 IVUS pass to Circ lesion performed. 9:36:15 Pre PCI Site: [place] mCirc has 63% stenosis. 9:36:24 IVUS catheter removed over wire. 9:36:27 IVUS measurement 63 %. 9:36:32 Wire removed. 9:36:38 BMW2 wire advanced. 9:36:41 FFR/IVUS 9:36:42 IVUS catheter advanced over wire. 9:36:43 IVUS pass to LAD lesion performed. 9:42:00 IVUS catheter removed over wire. 9:42:09 IVUS measurement 72 %. 9:42:23 Pre PCI Site: [place] pLAD has 72% stenosis. 9:42:30 IVUS pass to LMCA lesion performed. 9:42:31 Measurement not taken of LMCA, used to visualize plaque burden. 9:42:55 Wire removed. 9:43:00 Guide catheter removed. 9:43:16 Sheath removed intact; hemostasis achieved with Exoseal to the Right Femoral artery. 9:43:23 EXOSEAL 6Fr (EX600) opened to sterile field. 9:43:26 Procedure ended.(Physican Out) 9:43:38 Fluoroscopy time 05.70 minutes. 9:43:44 Flurop Dose total: 1027 9:43:44 Fluoroscopy dose: 1027 mGy 9:47:20 Contrast amount:Isovue 300 130ml. 9:48:09 DAP: 85508 9:48:13 Maximum allowable dose exceeded? No. 9:48:14 Sharps counted by scrub and verified by R.N. 9:48:15 Insertion/operative site no bleeding no hematoma. 9:48:18 Post-op/insertion site Right Femoral artery dressed using a 4 x 4 and Tegaderm. 9:48:21 Post right femoral artery:stable 9:48:22 Post Procedure Pulses reassessed and unchanged 9:48:24 Post procedure: right dorsailis pedis pulse 2+ Normal; easily identifiable; not easily obliterated. 9:48:27 Post-procedure physical assessment completed. ASA score P 2 - A patient with mild systemic disease as per Royce Patricia MD. 9:48:30 Post procedure rhythm: unchanged. 9:48:32 Procedure and supply charges have been captured, reviewed, submitted and are correct. 9:48:32 Post procedure instruction explained to patient.Patient verbalizes understanding. 9:49:06 Procedure Complication : No complications 9:49:08 See physician's report for complete and final results. 9:49:08 Vital chart was stopped 9:49:10 Report given to Pre/Post Procedure Room. 9:49:17 Patient transfered to Pre/Post Procedure Room with Stretcher. 9:49:19 Procedure ended. 9:49:19 Full Disclosure recording stopped 9:49:30 End room use (Document Last) 9:52:37 ACCDominant side:Co-Dominant Device Usage Item Name Manufacture Quantity Catalog Hospital Part Current Minimal L ot# / Number Charge Number Stock Stock Serial# Code Bag Microtek 1 [id number] 64774 149194 5 Decanter Medical Inc. () Medline Medline 1 [id number] 765519 62344 187897 5 Cath Pack ([id number]) ACIST Acist 1 19742 555018 495891 706425 20 Syringe Medical (83567) Systems Inc ACIST Hand Acist 1 45776 044077 612987 207813 5 Control Medical (95530) Systems Inc ACIST Acist 1 89720 616259 070651 052919 5 Manifold Medical (51499) Systems Inc DIAGNOSTIC Cardinal 1 [id number] 265625 38754 218000 30 Multipack Health 5Fr catheter set (QX8299) Tegaderm 4 3M 1 1626W 511669 773255 209085 5 x 4 (1626W) SHEATH 5FR Terumo 1 XBS579 963604 768361 007519 5 [place] (MGU430) EMERALD Cardinal 1 502-455 261287 745104 643289 5 Guide Wire Health (502-455) MULTIPACK Cardinal 1 666513 5 JL 4.0 5Fr Health catheter MULTIPACK Cardinal 1 937669 5 3DRC 5Fr Health catheter MULTIPACK Cardinal 1 154225 5 Pigtail 5 Health Fr catheter SHEATH 6FR Terumo 1 EGH386 605375 080030 855312 40 [place] (XID024) INFLATOR Merit 1 NV0449 956594 272128 238997 15 Merit Medical BasixCompak (HD1736) TUBING High Merit 1 [id number] 611559 56526 314912 10 Pressure Medical Extension Tubing (Patricia) (RR3210G) BMW 300cm [place] 1 [id number] 518678 232024 066786 5 [place] 2 Vascular J wire (6798595R) GUIDE 6FR Cardinal 1 [id number] 823493 591987 704238 10 XBLAD 3.5 Health catheter (16150751) [place] 1 62182U 422606 203017 261637 8 [place] IVUS Catheter (03217A) EXOSEAL 6Fr Cardinal 1 EX600 059154 503440 303982 10 (EX600) Health Signature Audit [place] Stage Time Signature Unsigned Intra-Procedure 05/12/2019 Gm MARTINO(R) Jay Grace RT(R) 9:52:50 AM 05/13/2019 8:22:46 AM Intra-Procedure 05/13/2019 Jay Grace 8:26:19 AM RT(R) Signatures Nurse : Nancy Peace RN Signature : Date : Time : Performing Physician : Signature : Royce Patricia MD Date : Time : Monitor : Gm Carl RT Signature : Date : Time : [place] [address] [place] [address]
[2019-05-12] MEDS ORDERED: ISOSORBIDE MONO30 M1 PO (07:07)
[2019-05-12 07:21] VITALS: BP 179/98; BMI 27.3
[2019-05-12 07:59] LABS: BASOPHILS 0.3 % (0-2); EOSINOPHILS 1.7 % (0-7); HEMATOCRIT 48.7 % (36.0-48.0); HEMOGLOBIN 16.4 g/dL (12-16); IMMATURE GRANULOCYTES 0.1 % (0-5); LYMPHOCYTES 37.3 % (15-50); MCH 31.9 pg (26.0-34.0); MCHC 33.7 g/dL (31.0-37.0); MCV 94.7 fL (80.0-100.0); MEAN PLATELET VOLUME 10.4 fL (7.4-10.4); MONOCYTES 12.1 % (2-11); NEUTROPHILS 48.5 % (40-80); PLATELET COUNT 193 10x3/uL (130-400); RBC 5.14 10x6/uL (4.00-5.40); RDW 13.8 % (11.5-14.5)
[2019-05-12 08:12] LABS: CALCIUM 8.7 mg/dL (8.5-10.1); CARBON DIOXIDE 27.8 mmol/L (21.0-32.0); CREATININE - SERUM 0.9 mg/dL (0.6-1.3); POTASSIUM - SERUM 4.8 mmol/L (3.5-5.1)
[2019-05-12 08:17] LABS: CHOL - HDL RATIO 4.6 ratio (2.3-4.1); LDL-HDL RATIO 3.1 ratio (1.5-3.5)
--- NOTE | 2019-05-12 10:00 | NUR ---
PHYSICIAN AT BEDSIDE TO UPDATE FAMILY.
--- NOTE | 2019-05-12 10:05 | NUR ---
PATIENT ARRIVED TO ROOM 6, PLACED ON CM. RIGHT GROIN DRESSING IS CDI, NO S/S OF BLEEDING OR HEMATOMA.
--- NOTE | 2019-05-12 10:20 | NUR ---
PATIENT RESTING, VSS ON 2L NC. RIGHT GROIN DRESSING IS CDI, NO S/S OF BLEEDING OR HEMATOMA. NO C/O PAIN, NUMBNESS, OR TINGLING. PATIENT TOLERATING ICE CHIPS, NO N/V.
--- NOTE | 2019-05-12 10:50 | NUR ---
PATIENT RESTING, VSS ON ROOM AIR. RIGHT GROIN DRESSING IS CDI, NO S/S OF BLEEDING OR HEMATOMA. NO C/O PAIN, NUMNBESS, OR TINGLING. TOLERATING PO FLUIDS, NO N/V.
--- NOTE | 2019-05-12 11:20 | NUR ---
PATIENT RESTING. VSS ON 2L NC. RIGHT GROIN DRESSING IS CDI, NO S/S OF BLEEDING OR HEMATOMA. NO C/O PAIN, NUMBNESS, OR TINGLING.
--- NOTE | 2019-05-12 11:50 | NUR ---
DR. JENNINGS AT BEDSIDE TO EVALUATE PATIENT AND UPDATE. VSS ON ROOM AIR. RIGHT GROIN DRESSING IS CDI, NO S/S OF BLEEDING OR HEMATOMA.
--- NOTE | 2019-05-12 12:20 | NUR ---
PATIENT RESTING, VSS ON ROOM AIR. RIGHT GROIN DRESSING IS CDI, NO S/S OF BLEEDING OR HEMATOMA. NO C/O PAIN, NUMBNESS, OR TINGLING. NO N/V.
--- NOTE | 2019-05-12 12:50 | NUR ---
HEAD OF BED ELEVATED TO 30 DEGREES, RIGHT GROIN DRESSING IS CDI, NO S/S OF BLEEDING OR HEMATOMA. NO C/O PAIN, NUMBNESS, OR TINGLING. TOLERATING PO FLUIDS, NO N/V.
[2019-05-12 13:07] VITALS: Ht 170.2 cm; Wt 79.1 kg
--- NOTE | 2019-05-12 13:20 | NUR ---
HEAD OF BED ELEVATED TO 70 DEGREES. RIGHT GROIN DRESSING IS CDI, NO S/S OF BLEEDING OR HEMATOMA. NO C/O PAIN, NUMBNESS, OR TINGLING. VSS ON ROOM AIR.
--- NOTE | 2019-05-12 13:50 | NUR ---
PATIENT TRANSPORTED TO BATHROOM, VOIDED WITHOUT DIFFICULTY. RIGHT GROIN DRESSING IS CDI, NO S/S OF BLEEDING OR HEMATOMA. NO C/O PAIN, NUMBNESS, OR TINGLING. VSS ON ROOM AIR. NO C/O PAIN, NUMBNESS, OR TINGLING.
--- NOTE | 2019-05-12 14:00 | NUR ---
WRITTEN AND VERBAL DISCHARGE INSTRUCTIONS GIVEN TO PATIENT, PATIENT VOICES UNDERSTANDING. PATIENT REFUSED WHEELCHAIR AND STATED THAT SHE WISHES TO BE DISCHARGED TO WAITING ROOM WITH FAMILY DUE TO ANOTHER FAMILY MEMBER BEING IN THE HOSPITAL AT THIS TIME. PATIENT TAKEN TO WAITING ROOM TO JOIN FAMILY MEMBERS WHO STATED THAT THEY WILL BE RESPONSIBLE FOR DRIVING PATIENT HOME.
== END 2019-05-12 14:05 ==
LOC: D.CATH 06:40
PROVIDERS: ATTEND Internal Medicine Cardiovascular Disease
DX: I25.119 Atherosclerotic heart disease of native coronary artery with unspecified angina pectoris (principal); I77.1 Stricture of artery; I65.23 Occlusion and stenosis of bilateral carotid arteries; I70.0 Atherosclerosis of aorta; I73.9 Peripheral vascular disease, unspecified; Z01.812 Encounter for preprocedural laboratory examination; I10 Essential (primary) hypertension; J44.9 Chronic obstructive pulmonary disease, unspecified; E78.5 Hyperlipidemia, unspecified; M19.90 Unspecified osteoarthritis, unspecified site; E07.9 Disorder of thyroid, unspecified; F17.200 Nicotine dependence, unspecified, uncomplicated

== ENCOUNTER → 2019-05-16 14:39 | Outpatient (CLI) | payer MEDICARE, BC ==
[2019-05-12 13:07] VITALS: BMI 27.3
[~2019-05-16 14:39] MED LIST changes: +BAYER CHEWABLE81 MG PO; +ISOSORBIDE MONO30 M1 PO
== END | disposition home or self-care (01) ==
LOC: D.CT 14:39
PROVIDERS: ATTEND Thoracic Surgery (Cardiothoracic Vascular Surgery)
DX: I65.23 Occlusion and stenosis of bilateral carotid arteries (principal); I77.1 Stricture of artery

== ENCOUNTER 2019-05-25 10:50 | Outpatient (CLI) | payer MEDICARE, BC ==
[~2019-05-25] VITALS: Ht 170.2 cm; Wt 78.2 kg
--- NOTE | ~2019-05-25 | HEMODYNAMI ---
PATIENT:WILLIAMS GARCIA MEDICAL RECORD: [id number] : 40 LOCATION:[facility] ADMISSION DATE: 05/25/19 Generatedon:05/25/201914:13 Patient name: WILLIAMS GARCIA Patient #: [id number] SSN: [id number] : 1940 Date of study: 05/25/2019 Page: Of Hemodynamic Procedure Report Patient Data Patient Demographics Procedure consent was obtained First Name: WILLIAMS Gender: Female Last Name: JOSE : 1940 Middle Initial: A Age: 78 year(s) Patient #: [id number] Race: SSN: [id number] Additional ID: [id number] Contact details [address]: [address] [place] [address] RO[address] State: [place] City: [place] Zip code: [address] Past Medical History History of disease Date Diagnosis Comments Hypertension Arrhythmias - Sinus Node->Sinus arrhythmia Allergies Allergen Reaction Date Comments Reported Other allergy 05/12/2018 AZITHROMYCIN, CRESTOR, LIPITOR Lipitor 05/12/2019 Admission Admission Data Admission Date: 05/25/2019 Admission Time: 10:50 Arrival Date: 05/25/2019 Arrival Time: 13:00 Admit Source: Other Insurance Payor: Medicare, Private health insurance Height (in.): 67 BSA: 1.91 (m2) Height (cm.): 170.18 BMI: 27.25 (kg/m2) Weight (lbs.): 174 Weight (kg.): 78.93 Lab Results Lab Result Date: 05/25/2019 Lab Result Time: 0:00 Biochemistry Name Units Result Min Max BUN mg/dl 17 --(---*)-- 7 18 Creatinine mg/dl 1 --(--*-)-- 0.6 1.3 CBC Name Units Result Min Max Hemoglobin g/dl 15.7 --(--*-)-- 13.5 17.5 Procedure Procedure Types Cath Procedure Diagnostic Procedure Sedation Charges Peripheral Cath Diagnostic Procedure Abd/Extremity Extremities Left Upper Ext. Arteriogram Procedure Description Procedure Date Procedure Date: 05/25/2019 Procedure Start Time: 13:38 Procedure Staff Name Function Royce Salguero MD Performing Physician Nita Keith RT Monitor Jay Grace RT Scrub Orly Deutsch RT Scrub Estee Giraldo RN Nurse Procedure Data Cath Procedure Fluoroscopy Diagnostic fluoroscopy Total fluoroscopy Time: 4.7 time: 4.7 min min Diagnostic fluoroscopy Total fluoroscopy dose: 218 dose: 218 mGy mGy Contrast Material Contrast Material Type Amount (ml) Isovue 300 49 Entry Location Entry Primary Successful Side Size Upsize Upsize Entry Closure Succes sful Closure Location (Fr) 1 (Fr) 2 (Fr) Remarks Device Remarks Femoral Right 5 Fr 6 Fr 6 Fr Exoseal artery Long Short Estimated blood loss: 5 ml Diagnostic catheters Device Type Used For End Catheter Placement DIAGNOSTIC IM 5Fr Multi-vessel catheter ([id number]) Angiography Procedure Complications No complications Procedure Medications Medication Administration Route Dosage 0.9% NaCl I.V. 100 ml/hr Oxygen etCO2 Nasal cannula 2 l/min Lidocaine 2% added to field 20 Heparin Flush Bag added to field 2 bags (1000units/500ml NS) Versed I.V. 1 mg Fentanyl I.V. 25 mcg Heparin Bolus I.V. 7000 units Plavix P.O. 600 mg Hemodynamics Rest BSA: 1.91 (m2) HGB: 15.7 (g/dl) O2 Consumption: Estimated: 175.31 (ml/min) O2 Co nsumption indexed: Estimated:91.79 (ml/min/m) Heart Rate: 74 (bpm) Snapshots Pre Cath Intra NCS Post Cath Vital Signs Time Heart Resp SPO2 etCO2 NIBP (mmHg) Rhythm Pain Sedation Rate (ipm) (%) (mmHg) Status Level (bpm) 13:26:59 80 13 98 41.9 222/110(181) NSR 0 (11) 10(A) , No pain 13:31:04 77 13 98 25.4 223/112(184) NSR 0 (11) 10(A) , No pain 13:35:10 77 11 98 20.9 199/102(168) NSR 0 (11) 9(A) , No pain 13:39:12 74 11 97 0 194/95(153) NSR 0 (11) 9(A) , No pain 13:43:12 75 13 98 0 199/93(157) NSR 0 (11) 9(A) , No pain 13:47:13 75 12 98 0 198/87(153) NSR 0 (11) 9(A) , No pain 13:51:13 75 11 98 32.8 200/97(159) NSR 0 (11) 9(A) , No pain 13:55:13 74 12 97 0 198/93(148) NSR 0 (11) 9(A) , No pain 13:59:14 75 11 97 37.4 198/90(153) NSR 0 (11) 10(A) , No pain 14:03:57 74 12 97 23.9 216/109(168) NSR 0 (11) 10(A) , No pain 14:08:50 73 11 98 28.4 214/105(174) NSR 0 (11) 10(A) , No pain Medications Time Medication Route Dose Verified Delivered Reason Notes Effectiveness by by 13:26:27 0.9% NaCl I.V. 100 Royce Estee used for ml/hr Jose M Giraldo manager configuration 13:26:49 Oxygen etCO2 2 Royce Estee used for Nasal l/min Jose M Giraldo procedure cannula RN 13:27:05 Lidocaine 2% added 20ml Royce Royce for local to vial Jose M Salguero MD anesthetic field 13:27:10 Heparin Flush added 2 Royce Royce used for Bag to bags Jose M Salguero MD procedure (1000units/500ml field NS) 13:33:24 Versed I.V. 1 mg Royce Estee for sedation Jose M Giraldo RN 13:33:24 Fentanyl I.V. 25 Royce Estee for sedation mcg Jose M Giraldo RN 13:52:09 Heparin Bolus I.V. 7000 Royce Estee for verif ied units Jose M Giraldo anticoagulation with Dr. LILLIAN Salguero 14:13:05 Plavix P.O. 600 Royce Estee for mg Jose M Giraldo antiplatelet RN therapy Procedure Log Time Note 13:00:17 Orly MARTINO(R) sent for patient. Start room use. 13:15:04 Informed consent obtained and on chart 13:16:04 Diagnostic Cath Status : Elective 13:16:37 ACC Patient presents with Symptoms unlikely to be ischemic CCS Anginal Class 0--No symptoms, no angina. 13:17:24 Time tracking: Regular hours (M-F 7:00 - 5:00) 13:17:28 Plan of Care:Hemodynamics will remain stable., Cardiac rhythm will remain stable., Comfort level will be maintained., Respiratory function will remain adequate., Patient/ family verbilizes understanding of procedure., Procedure tolerated without complication., Recovers from procedure without complications.. 13:17:34 Patient received from Pre/Post Procedure Room to CCL 2 Alert and oriented. Tansferred to table in Supine position. 13:17:35 Warm blankets applied, and lucas hugger turned on for patient comfort. 13:17:36 Correct patient and procedure confirmed by team. 13:17:36 ECG and BP/O2 sat monitors applied to patient. 13:19:29 Lab Result : Hemoglobin 15.7 g/dl 13:19:29 Lab Result : Creatinine 1 mg/dl 13:19:29 Lab Result : BUN 17 mg/dl 13:19:42 3a) 45-59 Moderately reduced kidney function. 13:20:16 Maximum allowable contrast dose (3.7 X eGFR X 0.75)158 ml. 13:20:20 Sedation plan: IV Moderate Sedation Medication:Versed, Fentanyl 13:20:41 Admit Source: Other 13:20:52 Patient Height : 67 inches 13:20:57 Patient Weight : 174 lbs 13:21:02 Insurance Payor : Private health insurance, Medicare 13:21:13 Arrival Date: 05/25/2019 1:00:00 PM 13:25:35 Baseline sample Acquired. 13:25:35 Vital chart was started 13:25:41 Rhythm: sinus rhythm 13:25:43 Full Disclosure recording started 13:25:47 H&P Date Dictated: 05/25/2019 Within 30 days and on chart., H&P Addendum completed by physician on day of procedure. (MUST COMPLETE FOR ALL OUTPATIENTS). 13:26:27 0.9% NaCl 100 ml/hr I.V. was administered by Estee Giraldo RN; used for procedure; 13:26:49 Oxygen 2 l/min etCO2 Nasal cannula was administered by Estee Giraldo RN; used for procedure; 13:27:05 Lidocaine 2% 20ml vial added to field was administered by Royce Salguero MD; for local anesthetic; 13:27:10 Heparin Flush Bag (1000units/500ml NS) 2 bags added to field was administered by Royce Salguero MD; used for procedure; 13:28:26 Pre-procedure instructions explained to patient. 13:28:26 Pre-op teaching completed and patient verbalized understanding. 13:28:29 Family in waiting room. 13:28:32 Family in waiting room. 13:28:36 Patient NPO since Midnight. 13:28:38 Is the patient allergic to Iodine/contrast media? No. 13:28:39 Was the patient premedicated? No 13:30:47 Is patient on blood thinner?No 13:30:49 Patient diabetic? No. 13:30:56 Previous problem with sedation/anesthesia? No ? 13:30:58 Snore? Yes 13:31:01 Sleep apnea? No 13:31:01 Deviated septum? Yes 13:31:30 Opens mouth fully? Yes 13:31:31 Sticks out tongue? Yes 13:31:35 Airway obstruction? No ? 13:31:37 Dentures? No ? 13:31:43 Pre procedure: right dorsailis pedis pulse 1+ Palpable, but thready & weak; easily obliterated 13:31:47 Pre procedure: left dorsailis pedis pulse 1+ Palpable, but thready & weak; easily obliterated 13:32:06 Patient pain scale 0/10 ?. 13:32:15 IV patent on arrival in left forearm with 0.9% NaCl at O. 13:32:17 Lab results completed and on chart. 13:32:29 Right groin area was prepped with chlora-prep and draped in sterile fashion 13:32:30 Alarms reviewed by R. N. 13:32:30 Sharps counted by scrub and verified by R.N. 13:32:32 Physician arrived 13:32:33 --------ALL STOP TIME OUT------ 13:32:33 Final Timeout: patient, procedure, and site verified with staff and physician. All members of the team are in agreement. 13:32:35 Right groin site verified by team. 13:32:39 Fire Safety Assessment: C--Open oxygen or nitrous oxide is being used., D--An ESU, laser, or fiber-optic light is being used. 13:32:42 Physical assessment completed. ASA score P 2 - A patient with mild systemic disease as per Royce Salguero MD. 13:32:50 Use device set CATH PACK 13:32:52 ACIST Syringe (85038) opened to sterile field. 13:32:52 ACIST Hand Control (27688) opened to sterile field. 13:32:52 ACIST Manifold (12256) opened to sterile field. 13:32:53 Medline Cath Pack ([id number]) opened to sterile field. 13:32:53 Bag Decanter (2002) opened to sterile field. 13:32:54 EMERALD Guide Wire (225-191) opened to sterile field. 13:33:24 Versed 1 mg I.V. was administered by Estee Giraldo RN; for sedation; 13:33:24 Fentanyl 25 mcg I.V. was administered by Estee Giraldo RN; for sedation; 13:38:01 Procedure started. 13:38:14 Local anesthetic to right femoral artery with Lidocaine 2% by Royce Salguero MD.INITIAL ACCESS ONLY 13:38:22 A 5 Fr sheath was inserted into the Right Femoral artery 13:41:58 A DIAGNOSTIC IM 5Fr catheter ([id number]) was advanced over the wire and used for Multi-vessel Angiography. 13:44:29 Left subclavian angiography performed 13:44:30 Catheter removed. 13:45:09 WHOLEY 300cm 0.035 wire ([id number]) opened to sterile field. 13:47:21 wholey wire advanced. 13:47:22 Wire advanced across lesion. 13:48:49 SHEATH 6FR Brite Tip 35cm ([id number]) opened to sterile field. 13:49:00 Sheath upsized to a 6 Fr Long. 13:49:48 INFLATOR Merit BasixCompak (RA4545) opened to sterile field. 13:52:09 Heparin Bolus 7000 units I.V. was administered by Estee Giraldo RN; for anticoagulation; verified with Dr. Salguero 13:54:40 Inflate balloon Inflation number: 1 A POWERFLEX PRO 7.0 x 20 x 135 cm balloon ([id number]) was prepped and advanced across the Proximal Subclavian, Left 99, then inflated to 12 HOLDEN for 0:10 (min:sec) 0. 13:56:59 Inflation number: 2 The POWERFLEX PRO 7.0 x 20 x 135 cm balloon ([id number]) was reinflated across the Proximal Subclavian, Left , to 14 HOLDEN for 0:10 (min:sec) . 13:58:30 Inflation number: 3 The POWERFLEX PRO 7.0 x 20 x 135 cm balloon ([id number]) was reinflated across the Proximal Subclavian, Left 95, to 14 HOLDEN for 0:10 (min:sec) . 13:59:51 Balloon removed over the wire. 14:00:12 EXOSEAL 6Fr (EX600) opened to sterile field. 14:00:27 Sheath upsized to a 6 Fr Short. 14:01:10 Sheath removed intact; hemostasis achieved with Exoseal to the Right Femoral artery. 14:01:12 Procedure ended.(Physican Out) 14:02:09 Fluoroscopy time 04.70 minutes. 14:02:14 Flurop Dose total: 218 14:02:14 Fluoroscopy dose: 218 mGy 14:02:19 Dose Area Product 82510 mGy/cm. 14:02:24 Contrast amount:Isovue 300 49ml. 14:02:26 Sharps counted by scrub and verified by R.N. 14:02:28 Insertion/operative site no bleeding no hematoma. 14:02:57 Post-op/insertion site Right Femoral artery dressed using a 4 x 4 and Tegaderm. 14:04:41 Post Procedure Pulses reassessed and unchanged 14:04:44 Post procedure rhythm: unchanged. 14:04:47 Estimated blood loss: 5 ml 14:04:48 Post procedure instruction explained to patient.Patient verbalizes understanding. 14:04:48 Patient needs reinforcement of post procedure teaching. 14:05:55 Procedure type changed to Cath procedure, Diagnostic procedure, Sedation Charges, Peripheral Cath Diagnostic Procedure, Abd/Extremity, Extremities, Left Upper Ext. Arteriogram 14:12:39 Procedure and supply charges have been captured, reviewed, submitted and are correct. 14:12:43 Procedure Complication : No complications 14:12:46 Vital chart was stopped 14:13:05 Plavix 600 mg P.O. was administered by Estee Giraldo RN; for antiplatelet therapy; Intervention Summary Intervention Notes Time ActionType Lesion and Equipment Action# Pressure Duration Attributes Used 13:54:40 Inflate Proximal POWERFLEX 1 12 00:10 balloon Subclavian, PRO 7.0 x Left 20 x 135 cm balloon ([id number]) 13:56:59 Reinflate Proximal POWERFLEX 2 14 00:10 balloon Subclavian, PRO 7.0 x Left 20 x 135 cm balloon ([id number]) 13:58:30 Reinflate Proximal POWERFLEX 3 14 00:10 balloon Subclavian, PRO 7.0 x Left 20 x 135 cm balloon ([id number]) Device Usage Item Name Manufacture Quantity Catalog Hospital Part Current Minimal L ot# / Number Charge Number Stock Stock Serial# Code ACIST Acist 1 49815 206963 633987 890202 20 Syringe Medical (46019) Systems Inc ACIST Hand Acist 1 76160 986252 851777 377381 5 Control Medical (51028) Systems Inc ACIST Acist 1 06067 287359 594117 176935 5 Manifold Medical (51550) Systems Inc Medline Medline 1 [id number] 593769 63928 546587 5 Cath Pack ([id number]) Bag Microtek 1 588937 49519 155847 5 Decanter Medical Inc. () EMERALD Cardinal 1 502-455 586620 772220 058689 5 Guide Wire Health (502-455) DIAGNOSTIC Cardinal 1 [id number] 994816 315117 965756 5 IM 5Fr Health catheter (108351B) WHOLEY Medtronic 1 [id number] 592577 204954 531214 3 300cm 0.035 wire ([id number]) SHEATH 6FR Cardinal 1 [id number] 743566 974250 709710 1 Brite Tip Health 35cm (522906V) INFLATOR Merit 1 FQ9608 224172 607826 981049 15 [facility] Medical BasixCompak (OK3736) POWERFLEX Cardinal 1 [id number] 440146 291310 743959 5 PRO 7.0 x Health 20 x 135 cm balloon ([id number]) EXOSEAL 6Fr Cardinal 1 EX600 878727 210996 709291 10 (EX600) Health Signature Audit [place] Stage Time Signature Unsigned Intra-Procedure 05/25/2019 Nita Keith 2:13:25 PM RT(R) Signatures Performing Physician : Signature : Royce Salguero MD Date : Time : Monitor : Nita Sagar RT Signature : Date : Time : Nurse : Estee Enzo RN Signature : Date : Time : [address] [place] [address]
[~2019-05-25 10:50] MED LIST changes: -BAYER CHEWABLE81 MG PO
[2019-05-25 11:23] VITALS: BP 163/93; Ht 170.2 cm; Wt 78.2 kg
[2019-05-25 11:40] LABS: HEMATOCRIT 46.6 % (36.0-48.0); HEMOGLOBIN 15.7 g/dL (12-16); LYMPHOCYTES 30.9 % (15-50); MCH 31.9 pg (26.0-34.0); MCHC 33.7 g/dL (31.0-37.0); MCV 94.7 fL (80.0-100.0); MEAN PLATELET VOLUME 9.6 fL (7.4-10.4); NEUTROPHILS 57.9 % (40-80); RBC 4.92 10x6/uL (4.00-5.40); RDW 13.3 % (11.5-14.5); WBC 6.9 10x3/uL (4.8-10.8)
[2019-05-25 11:41] LABS: PLATELET COUNT 238 10x3/uL (130-400)
[2019-05-25 11:51] LABS: ANION GAP 9.8 mmol/L (8-16); CALCIUM 8.8 mg/dL (8.5-10.1); CARBON DIOXIDE 30.6 mmol/L (21.0-32.0); POTASSIUM - SERUM 4.4 mmol/L (3.5-5.1)
--- NOTE | 2019-05-25 14:23 | NUR ---
PT ARRIVED BY STRETCHER. PLACED ON MONITOR. ASSESSMENT COMPLETED. VSS. FAMILY AT BEDSIDE.
[2019-05-25] MEDS ORDERED: BAYER CHEWABLE81 MG PO (14:35)
[2019-05-25] MEDS ORDERED: PLAVIX75 MG PO (14:36)
--- NOTE | 2019-05-25 14:38 | NUR ---
PT ON BEDPAN. VOIDED WITHOUT DIFFICULTY. SHILPA-CARE GIVEN. RIGHT GROIN DRESSING C/D/I. NO S/S OF HEMATOMA NOTED. RIGHT PEDAL PULSE PALPABLE.
--- NOTE | 2019-05-25 15:06 | NUR ---
DR. JENNINGS AT BEDSIDE SPEAKING WITH FAMILY AND PT. RIGHT GROIN DRESSING C/D/I. NO S/S OF HEMATOMA NOTED. BP CHECK FOR DR. JENNINGS: LEFT ARM: 234/102 RIGHT ARM: 222/98
--- NOTE | 2019-05-25 15:38 | NUR ---
PT RESTING COMFORTABLY. CALL LIGHT WITHIN REACH. RIGHT GROIN DRESSING C/D/I. NO S/S OF HEMATOMA NOTED. BP STARTING TO TREND DOWN. 208/94.
--- NOTE | 2019-05-25 16:00 | NUR ---
RIGHT GROIN DRESSING C/D/I. NO S/S OF HEMATOMA NOTED. BP TRENDING DOWN. PT RESTING COMFORTABLY AT THIS TIME. CALL LIGHT WITHIN REACH.
--- NOTE | 2019-05-25 16:32 | NUR ---
PT'S FAMILY AT BEDSIDE. RIGHT GROIN DRESSING C/D/I. NO S/S OF HEMATOMA NOTED. CALL LIGHT WITHIN REACH. PT RESTING COMFORTABLY. RIGHT PEDAL PULSE PALPABLE AT THIS TIME.
--- NOTE | 2019-05-25 17:00 | NUR ---
RIGHT GROIN DRESSING C/D/I. NO S/S OF HEMATOMA NOTED. PT'S HEAD OF BED INC TO 30 DEGREES. TOLERATED WELL. VSS. PT DOES NOT WANT TO EAT AT THIS TIME. TOLERATING SODA. DENIES NAUSEA. FAMILY AT BEDSIDE. CALL LIGHT WITHIN REACH.
--- NOTE | 2019-05-25 17:30 | NUR ---
RIGHT GROIN DRESSING C/D/I. NO S/S OF HEMATOMA NOTED. LEFT ARM PIV D/C'D WITH CATH TIP INTACT. PT TOLERATED WELL. PT INSTRUCTED TO GET UP AND DRESSED. NO ASSSITANCE NEEDED. CALL LIGHT WITHIN REACH.
--- NOTE | 2019-05-25 17:35 | NUR ---
DISCUSSED DISCHARGE INSTRUCTIONS WITH PT AND PT'S FAMILY. THEY VOICED UNDERSTANDING.
--- NOTE | 2019-05-25 17:55 | NUR ---
PT TAKEN TO RESTROOM BY WHEELCHAIR. VOIDED WITHOUT DIFFICULTY. TAKEN OUT TO VEHICLE. NO S/S OF DISTRESS NOTED. ALL BELONGINGS AND PAPERWORK IN HAND.
== END 2019-05-25 17:55 | disposition home or self-care (01) ==
LOC: D.CATH 10:50
PROVIDERS: ATTEND Internal Medicine Cardiovascular Disease
DX: T82.856A Stenosis of peripheral vascular stent, initial encounter (principal); Z01.812 Encounter for preprocedural laboratory examination; R55 Syncope and collapse

== ENCOUNTER 2019-06-30 06:26 | Inpatient (IN) | payer MEDICARE, BC ==
[~2019-06-30] VITALS: Ht 170.2 cm; Wt 75.9 kg
[~2019-06-30 06:26] MED LIST changes: +BAYER CHEWABLE81 MG PO
[2019-07-01 14:17] LABS: INR 1.03 (0.85-1.17)
[2019-07-01 14:18] LABS: APTT 29.8 SECONDS (22.8-39.4)
[2019-07-01 14:23] LABS: BASOPHILS 0.1 % (0-2); EOSINOPHILS 1.2 % (0-7); HEMOGLOBIN 15.9 g/dL (12-16); IMMATURE GRANULOCYTES 0.3 % (0-5); LYMPHOCYTES 34.3 % (15-50); MCH 31.7 pg (26.0-34.0); MCHC 33.8 g/dL (31.0-37.0); MCV 93.6 fL (80.0-100.0); MONOCYTES 12.5 % (2-11); NEUTROPHILS 51.6 % (40-80); PLATELET COUNT 236 10x3/uL (130-400); RBC 5.02 10x6/uL (4.00-5.40); RDW 13.7 % (11.5-14.5); WBC 7.6 10x3/uL (4.8-10.8)
[2019-07-01 14:34] LABS: ALBUMIN 3.5 g/dL (3.4-5.0); ANION GAP 8.3 mmol/L (8-16); BILIRUBIN - TOTAL 0.26 mg/dL (0.2-1.3); CALCIUM 8.8 mg/dL (8.5-10.1); CARBON DIOXIDE 31.6 mmol/L (21.0-32.0); CREATININE - SERUM 0.9 mg/dL (0.6-1.3); PHOSPHOROUS 3.5 mg/dL (2.5-4.9); POTASSIUM - SERUM 4.9 mmol/L (3.5-5.1); PROTEIN - SERUM 7.1 g/dL (6.4-8.2); T4 THYROXIN - FREE 1.22 ng/dL (0.76-1.46); THYROID STIMULATING HORMONE 2.1 uIU/mL (0.36-3.74); URIC ACID 5.8 mg/dL (2.6-7.2)
[2019-07-04 12:22] LABS: APPEARANCE HAZY (CLEAR); BILIRUBIN NEGATIVE (NEGATIVE); COLOR YELLOW (YELLOW); GLUCOSE NEGATIVE (NEGATIVE); KETONE NEGATIVE (NEGATIVE); NITRITE NEGATIVE (NEGATIVE); PROTEIN TRACE mg/dL (NEGATIVE); SPECIFIC GRAVITY 1.025 (1.005-1.020); UROBILINOGEN NORMAL (NORMAL)
[2019-07-04 12:23] LABS: BACTERIA MODERATE /hpf (NONE SEEN); EPITHELIAL CELLS 0-5 /hpf (0-5); RED CELLS - URINE OCC /hpf (0-5); WHITE CELLS - URINE OCC /hpf (0-5)
[2019-07-04 12:52] LABS: AMORPHOUS SEDIMENT <1+ /lpf (NONE SEEN); MUCUS <1+ /lpf (NONE SEEN)
[2019-07-05] VITALS (45 sets, daily range): BP systolic 88–210; BP diastolic 41–93; BMI 26.2
[2019-07-05 06:03] LABS: APPEARANCE CLEAR (CLEAR); BILIRUBIN NEGATIVE (NEGATIVE); COLOR YELLOW (YELLOW); GLUCOSE NEGATIVE (NEGATIVE); KETONE NEGATIVE (NEGATIVE); NITRITE NEGATIVE (NEGATIVE); PROTEIN TRACE mg/dL (NEGATIVE); SPECIFIC GRAVITY 1.015 (1.005-1.020); UROBILINOGEN NORMAL (NORMAL)
[2019-07-05 06:06] LABS: WHITE CELLS - URINE 0-5 /hpf (0-5)
[2019-07-05 06:07] LABS: BACTERIA NONE SEEN /hpf (NONE SEEN); EPITHELIAL CELLS 0-5 /hpf (0-5); RED CELLS - URINE 0-5 /hpf (0-5)
[2019-07-05 07:47] LABS: APPEARANCE CLEAR (CLEAR); BILIRUBIN NEGATIVE (NEGATIVE); COLOR STRAW (YELLOW); GLUCOSE NEGATIVE (NEGATIVE); KETONE NEGATIVE (NEGATIVE); NITRITE NEGATIVE (NEGATIVE); PROTEIN NEGATIVE (NEGATIVE); UROBILINOGEN NORMAL (NORMAL)
[2019-07-05 15:29] LABS: BASOPHILS 0.1 % (0-2); EOSINOPHILS 0.2 % (0-7); HEMATOCRIT 37.5 % (36.0-48.0); HEMOGLOBIN 12.3 g/dL (12-16); IMMATURE GRANULOCYTES 0.2 % (0-5); LYMPHOCYTES 11.2 % (15-50); MCH 30.6 pg (26.0-34.0); MCHC 32.8 g/dL (31.0-37.0); MCV 93.3 fL (80.0-100.0); MEAN PLATELET VOLUME 9.5 fL (7.4-10.4); MONOCYTES 7.3 % (2-11); RBC 4.02 10x6/uL (4.00-5.40); RDW 13.6 % (11.5-14.5)
[2019-07-05 15:30] LABS: PLATELET COUNT 121 10x3/uL (130-400)
--- NOTE | 2019-07-05 15:38 | NUR ---
1430 PT RECIEVED TO ROOM SEDATED FROM SURGERY PLACED ON VENT BY RT ETT8.0 22 AT LIP, R IJ CVL DRESSING CDI WITH PLASMALYTE 100ML/HR, ZINACEF INITIATED PER EMAR, R RADIAL A LINE ZEROED, GOOD WAVEFORM, WRIST PROTECTOR IN PLACE, MIDSTERNAL INCISION DRESSING CDI WITH SUBSTERNAL TPM WIRES TAPED TO CHEST, DDD80 AMA10 VMA10 CTX2 20CM SUCTION NO AIR LEAK BLOODY DRAINAGE, REGINA DRAIN COMPRESSED WITH BLOODY DRAINAGE, CRITICORE YAN DRAINING YELLOW URINE, BILAT LEG INCISIONS WITH DRESSINGS CDI, RLE COBAN GROIN TO ANKLE, TASNEEM HUGGER APPLIED ON ARRIVAL FAMILY UPDATED BY DR JENNINGS AND SET UP SECURITY CODE ABGS REVIEWED BY DR JENNINGS ORDERS TO NOT TREAT BASE EXCESS
[2019-07-05 15:45] LABS: APTT 33.5 SECONDS (22.8-39.4); INR 1.31 (0.85-1.17); PROTIME 15.7 SECONDS (11.6-15.0)
[2019-07-05 15:54] LABS: ALBUMIN 2.4 g/dL (3.4-5.0); ANION GAP 12.6 mmol/L (8-16); BILIRUBIN - TOTAL 0.48 mg/dL (0.2-1.3); CREATININE - SERUM 0.8 mg/dL (0.6-1.3); POTASSIUM - SERUM 4.6 mmol/L (3.5-5.1); PROTEIN - SERUM 4.5 g/dL (6.4-8.2)
--- NOTE | 2019-07-05 17:53 | NUR ---
165 PT BEGAN DIAPHRAMATIC PACING, DR JENNINGS NOTIFIED WITH ORDERS TO CHANGE AMA TO 3, PT STILL SHOWING SIGNS OF DIAPHRAMATIC PACING BUT LESS "BOUNCING", ORDERS TO CHANGE AMA TO 2, FAILED TOCAPTURE, PER DR JENNINGS CHANGED POLARITY OF ATRIAL WIRES, CONTINUED NO PACING AT AMA 2, BP DROPPED TO 80S, AMA TURNED TO 4 TO OBTAIN CAPTURE AND BP RETURNED TO 110S BUT CONITNUED DIAPHRAMATIC PACING.PER DR JENNINGS TURNED AMA OFF AND USED SHUN FOR BP, BP BECAME IRREGULAR CONTINUALLY CHANGING FROM 100-130S WITH BP CUFF MATCHING AND NO CHANGES IN SHUN, DR JENNINGS NOTIFIED WITH ORDERS TO PUT EXTERNAL PADS ON PT, SEDATED WITH DIPROVAN AND TURN AMA TO 3. RT NOTIFIED OF SEDATION AND RATE INCREASED ON VENT TO 14. CURRENT SETTINGS OF AMA 3 VMA 10 RATE 80, PT SEDATED AND CONTINUES DIAPHRAMATIC PACING. TPM CAPTURING APPROPRIATELY, PER DR RILEY WAIT TO WEAN TILL AM, DR JENNINGS NOTIFIED AND IN AGREEMENT
--- NOTE | 2019-07-05 19:06 | NUR ---
PREVIOUS SHIFT REPORTED THAT PT NECK HAD GOITER LOOKING LUMP UPON ARRIVAL.
--- NOTE | 2019-07-05 19:15 | NUR ---
SHIFT ASSESSMENT COMPLETE AT THIS TIME.
--- NOTE | 2019-07-05 20:40 | NUR ---
SON HERE IN TO SEE PATIENT. UPDATE GIVEN ON PATIENT. ASK SON ABOUT HIS MOTHERS NECK IF IT ALWAYS HAS THIS HARD KNOT UNDER HER CHIN NECK AREA. SON STATED THAT SHE HAS HAD IT AND RECENTLY HAD IT LANCED TO TRY AND DRAIN THE CYST. AREA UNDER CHIN ON NECK IS APPROX SIZE OF GOLF BALL AND HARD. WITHOUT REDNESS OR DRAINAGE NOTED.
--- NOTE | 2019-07-05 21:24 | NUR ---
DR. JENNINGS UPDATED ON PAITENT CONDITION AND URINE OUTPUT, NO NEW ORDERS RECIEVED. PATIENT IS IN STABLE CONDITION WITH NO NEW CHANGES.
--- NOTE | 2019-07-05 23:26 | NUR ---
DR. JENNINGS NOTIFIED OF URINE OUTPUT, NO NEW ORDERS RECEIVED. PATIENT IS IN STABLE CONDITION AT THIS TIME.
[2019-07-06] VITALS (73 sets, daily range): BP systolic 103–171; BP diastolic 45–84; BMI 28.2
[2019-07-06 05:41] LABS: HEMATOCRIT 35.8 % (36.0-48.0); HEMOGLOBIN 12.1 g/dL (12-16); MCH 30.8 pg (26.0-34.0); MCHC 33.8 g/dL (31.0-37.0); MEAN PLATELET VOLUME 10.1 fL (7.4-10.4); RBC 3.93 10x6/uL (4.00-5.40); RDW 13.7 % (11.5-14.5); WBC 9.6 10x3/uL (4.8-10.8)
[2019-07-06 05:42] LABS: MCV 91.1 fL (80.0-100.0)
[2019-07-06 06:08] LABS: ALBUMIN 2.2 g/dL (3.4-5.0); ANION GAP 13.2 mmol/L (8-16); BILIRUBIN - TOTAL 0.35 mg/dL (0.2-1.3); CALCIUM 7.3 mg/dL (8.5-10.1); CARBON DIOXIDE 23.9 mmol/L (21.0-32.0); MAGNESIUM - SERUM 2.2 mg/dL (1.8-2.4); PHOSPHOROUS 3.3 mg/dL (2.5-4.9); POTASSIUM - SERUM 4.1 mmol/L (3.5-5.1); PROTEIN - SERUM 4.8 g/dL (6.4-8.2)
--- NOTE | 2019-07-06 07:45 | NUR ---
SHIFT REPORT RECEIVED. PT INTUBATED AND SEDATED. VENT SETTINGS A/C R-14, TV550, FIO2 40%, PEEP 5. SIZE 8 ETT. RIJ NOTED WITH DRESSING CDI. SEE IV FLOWSHEET FOR DRIPS. MIDSTERNAL INCISION WITH DRESSING CDI. SUBTERNAL CT X 2 TO 20 CM SUCTION. NO AIR LEAK NOTED. TPM TURNED OFF PER DR. JENNINGS. LEFT REGINA DRAIN IN PLACE. YAN CATH IN PLACE WITH MINIMAL URINE OUT PUT NOTED. KATELYN ON RIGHT RADIAL SECURED WITH WRIST PROTECTOR. WRIST RESTRAINTS IN PLACE PER ORDERS. COMPLETE ASSESSMENT CHARTED IN FLOW SHEET. BED ALARM ON. NURSE AT BEDSIDE. WILL CONTINUE TO MONITOR.
--- NOTE | 2019-07-06 07:57 | NUR ---
PROPOFOL DISCONTINUED PER DR. JENNINGS'S ORDERS.
--- NOTE | 2019-07-06 08:46 | NUR ---
PHONE CALL RECEIVED FROM GRISELDA GARCIA PT'S SON. PASS CODE VERIFIED. BRIEF UPDATE GIVEN. WILL BE BY TO SEE PATIENT LATER TODAY AT THE 4-6PM VISITATION TIME.
--- NOTE | 2019-07-06 08:56 | NUR ---
DR. JENNINGS AT BESIDE. PT ON CPAP TRIAL AT THIS TIME. DR. JENNINGS WANTS ABGS IN ONE HR. KAIT ZEPEDA AFTER ABG'S ARE DRAWN.
--- NOTE | 2019-07-06 10:14 | NUR ---
EXTUBATED AT THIS TIME. PLACED ON 5L OF 02 VIA NC.
--- NOTE | 2019-07-06 10:30 | NUR ---
KATELYN CARBALLO'Karely PER ORDERS. BP 118/59 AT THIS TIME. WILL CONTINUE TO WEAN OFF NITROGLEYCERYN.
--- NOTE | 2019-07-06 11:29 | OP ---
PATIENT NAME: WILLIAMS GARCIA MEDICAL RECORD: [id number] :40 LOCATION:[facility] ADMISSION DATE:07/05/19 SURGEON: JOSÉ MIGUEL JENNINGS MD DATE OF OPERATION: 07/05/2019 SURGEON: José Miguel Jennings MD QA TESTER: Camilo Fernandez MD and Jonathon Carter OPERATION PERFORMED: 1. Coronary artery bypass graft times 3 (free left internal mammary artery to LAD and reverse saphenous vein graft from aorta to obtuse marginal and aorta to right coronary artery). 2. Endoscopic saphenous vein harvest. PREOPERATIVE DIAGNOSIS: Coronary artery disease. POSTOPERATIVE DIAGNOSIS: Coronary artery disease. ANESTHESIA: General endotracheal anesthesia. ESTIMATED BLOOD LOSS: Total cardiopulmonary bypass with Cell Saver retransfusion. SPECIMENS: Mediastinal lymph node for permanent specimen. COMPLICATIONS: None. CONDITION: Stable. DISPOSITION: CV ICU. OPERATIVE FINDINGS: 1. Transesophageal echocardiography revealed normal contractility and no valvular stenosis or regurgitation. 2. Varicose and thin walled vein from the right thigh was not usable except for a small part of the endoscopically harvested portion in the right lower leg vein was small bridging incision also used for the left upper thigh vein. 3. Large fatty heart and severe hyperexpanded lungs bilaterally. 4. Free left internal mammary artery, used due to history of subclavian stent and restenosis. 5. Plaque at the base of the innominate and in the more proximal ascending aorta not at the clamp site, cannulation site, or aortic anastomotic sites. 6. All vessels with severe distal disease. LAD 1.5 mm. 7. First obtuse marginal 2.0 mm. The more distal obtuse marginal was either deep intramyocardial or interepicardial but no sizable vessel was identified. 8. There was severe disease at the right coronary bifurcation; therefore, the plaque was split. It was a 1.5 mm vessel and the PDA was smaller 1.25 mm. 9. AV paced off cardiopulmonary bypass due to complete heart block, no amiodarone was given. OPERATIVE INDICATION: Coronary artery disease. OPERATIVE SUMMARY IN DETAIL: The patient was brought to the operating suite. General anesthesia obtained. The patient prepped and draped. Endoscopic vein OPERATIVE REPORT [id number] WILLIAMS GARCIA harvest right thigh was performed. A side branches were divided with electrocautery. The vessel was ligated proximally and more distally. Bridging incision was used to remove a small portion of vein. Dr. Fernandez was the development assistant surgeon for this portion of the case. This saved about 1-1/2 hours of general anesthetic time for him to remove the vein, oversewing thin sites repair of the vein, tied the side branches. Additionally, bridging incisions left thigh used to remove the proximal portion of the greater saphenous vein, which was a better conduit. Side branches again tied. A median sternotomy incision was made. Subcutaneous tissue was divided with electrocautery. The sternum was divided with a saw. Left extremity was elevated. Left pleural cavity was entered. Left internal mammary was taken as a pedicle graft. The heparin was given. The aorta was cannulated. Dual stage venous cannula was inserted. Internal mammary was clipped proximally and distally and was oversewn and was perfused with papaverine and kept in a papaverine sponge as a free graft at the time of anastomosis. The patient placed in cardiopulmonary bypass. Sites for distal anastomosis were selected. The patient was cooled. Antegrade cardioplegia cannula was inserted. Crossclamp was placed. Cardioplegia was given antegrade and this was repeated at 15 to 20 minutes intervals including down the completed vein grafts. Distal anastomoses were performed in standard technique. Proximal anastomosis with a 3.5 mm punch through the left internal mammary artery, 4.0 for the vein graft. The aortic root was de-aired. Proximal anastomoses were tied down. Proximal and distal anastomoses inspected for bleeding. The patient was paced with atrial and ventricular pacing wires fully rewarmed, weaned from cardiopulmonary bypass and was stable. The patient was decannulated. The cannula sites were oversewn. Protamine was given. Thorough irrigation was undertaken. The graft lay appropriately. Good Doppler signals were noted in the graft. Hemostasis was ensured. Drains were placed in the mediastinum and left pleural cavity. Left chest was evacuated and irrigated. The internal mammary harvest site was inspected for bleeding. Pericardial fat was approximated over the great vessels. Lungs were touching in the midline. Sternum was closed with wires. Fascia was closed. Subcutaneous tissue was closed. Skin was closed. Dermabond was placed. The needle and sponge counts were correct. The patient was taken to ICU in stable condition. TRANSINT:[id number] Voice Confirmation ID: [id number] DOCUMENT ID: [id number] JOSÉ MIGUEL JENNINGS MD at 1129 CC: IGNACIO PERKINS M.D. and ANNY LOZANO [phone] DICTATION DATE: 07/05/19 1506 WAX POT TENDER: 07/05/19 1803 ADM IN [facility] [address] [id number]
--- NOTE | 2019-07-06 11:30 | NUR ---
RE-ASSESSMENT HAS BEEN COMPLETED AND CHARTED. PT PULLS BETWEEN 500-750 ON INCENTIVE SPIROMETER. NO FURTHER NEEDS AT THIS TIME. WILL CONTINUE TO MONITOR.
--- NOTE | 2019-07-06 13:56 | NUR ---
DR. JENNINGS AT BEDSIDE. ORDERED 12.5 LOPRESSOR PO TO BE GIVEN NOW AND BID STARTING TOMORROW AT 9AM.
--- NOTE | 2019-07-06 16:30 | NUR ---
CVL DRESSING CHANGED PER PROTOCOL USING ASEPTIC TECHNIQUE. YAN CATHETER CARE PROVIDED AT THIS TIME. PT TOLERATED WELL. PULLING 500-750 ON I.S. PT TOLERATING CLEAR LIQUIDS. PT DENIES FURTHER NEEDS AT THIS TIME. SON AT BEDSIDE. WILL CONTINUE TO MONITOR.
--- NOTE | 2019-07-06 16:53 | NUR ---
DINNER TRAY DELIVERED AND SET UP. TOLERATING CLEAR LIQUIDS. JOANN VILLALOBOS AT BEDSIDE. WILL CONTINUE TO MONITOR.
--- NOTE | 2019-07-06 19:34 | MORECARE ---
CASE MANAGEMENT DISCHARGE SUMMARY PATIENT: WILLIAMS GARCIA UNIT: [id number] ADM DATE: 07/05/19 AGE: 78 : 40 SEX: F ROOM/BED: [facility] AUTHOR: NII SEO PHYSICIAN: REFERRING PHYSICIAN: GEREMIAS JENNINGS MD DATE OF SERVICE: 07/06/19 Discharge Plan Patient Name: WILLIAMS GARCIA [facility] [facility] 1940 Planned Disposition: Anticipated Discharge Date: Discharge Date: Expected LOS: Initial Reviewer: [email or web address] Initial Review Date: 07/06/2019 Generated: 07/06/19 8:33 pm Comments DCP- Discharge Planning Updated by [email or web address]: Meghan Zepeda on 07/06/19 6:[address] CM attempted to visit with patient regarding discharge planning/ needs. Patient requested CM to come back at a later time. CM will continue to follow and assist as needed with discharge planning / needs Patient Name: WILLIAMS GARCIA Page [phone] at 1934 All edits/amendments must be made on the electronic document DICTATION DATE: 07/06/191932 PRODUCT STRATEGY DIRECTOR: CHRIS 07/06/191932 RPT#: [id number] DC DATE: STATUS: ADM IN [facility] [address] [place] [address] END OF REPORT
--- NOTE | 2019-07-06 20:00 | NUR ---
REPORT RECEIVED WITH PT EYES OPEN, ON O2 5LPM. CHEST TUBES ANTERIOR AND POSTERIOR TO SUBSTERNAL TO SUCTION, PACER WIRES PRESENT AND CONNECTED TO TEMPORARY PACER NOT TURNED ON. VSS. CRITAMELA YAN IN USE. RIGHT IJ WITH PLASMALYTE AT 100ML/HR. DRESSINGS TO MIDSTERNAL, SUBSTERNAL, AND LEFT UPPER LEG C/D/I. WILL CONTINUE TO OBSERVE. CALL LIGHT IN REACH
--- NOTE | 2019-07-06 23:35 | NUR ---
REASSESSMENT COMPLETED, SEE FLOW SHEET. BREATH SOUND CLEAR. PT RESTING WITH EYES CLOSED AND CHEST RISING. CALL LIGHT IN REACH. WILL CONTINUE TO OBSERVE.
[2019-07-07] VITALS (25 sets, daily range): BP systolic 97–156; BP diastolic 44–68
--- NOTE | 2019-07-07 02:12 | NUR ---
PT RESTING WITH EYES CLOSED AND CHEST RISING. NO S/S OF DISTRESS. EASILY AWOKEN TO VERBAL STIMULI. CALL LIGHT IN REACH. WILL CONTINUE TO OBSERVE
--- NOTE | 2019-07-07 03:53 | NUR ---
REASSESSMENT COMPLETED, SEE FLOW SHEET. PT RESTING WITH EYES CLOSED AND CHEST RISING. EASILY AWOKEN TO VERBAL STIMULI. WILL CONTINUE TO OBSERVE. CALL LIGHT IN REACH.
--- NOTE | 2019-07-07 06:25 | NUR ---
CHG BATH GIVEN. SUBSTERNAL DRESSING AND UPPER LEFT LEG DRESSING CHANGED PER PROTOCOL. PT TOLERATED WELL. WILL CONTINUE TO OBSERVE.
[2019-07-07 06:53] LABS: ALBUMIN 2.1 g/dL (3.4-5.0); ALKALINE PHOSPHATASE 44 U/L (46-116); BILIRUBIN - TOTAL 0.34 mg/dL (0.2-1.3); CALCIUM 7.8 mg/dL (8.5-10.1); CARBON DIOXIDE 29.6 mmol/L (21.0-32.0); CHLORIDE - SERUM 107 mmol/L (98-107); GLUCOSE 118 mg/dL (74-106); MAGNESIUM - SERUM 2.2 mg/dL (1.8-2.4); POTASSIUM - SERUM 4.4 mmol/L (3.5-5.1); SODIUM 140 mmol/L (136-145)
[2019-07-07 06:57] LABS: HEMATOCRIT 33.2 % (36.0-48.0); HEMOGLOBIN 10.9 g/dL (12-16); MCH 30.8 pg (26.0-34.0); MCHC 32.8 g/dL (31.0-37.0); RBC 3.54 10x6/uL (4.00-5.40); RDW 14.1 % (11.5-14.5); WBC 11.8 10x3/uL (4.8-10.8)
[2019-07-07 07:01] LABS: MCV 93.8 fL (80.0-100.0)
[2019-07-07 07:07] LABS: ALT (SGPT) 60 U/L (10-68); CALC OSMOLALITY 280 mosm/kg (275-300); CREATININE - SERUM 0.6 mg/dL (0.6-1.3); UREA NITROGEN 15 mg/dL (7-18); eGFR NON AFRICAN AMERICAN > 90 mL/min (90-120)
--- NOTE | 2019-07-07 07:30 | NUR ---
SHIFT REPORT RECEIVED. ON 5L OF O2 VIA NC. MIDSTERNAL DRESSING C/D/I. SUBSTERNAL DRESSING CDI. CT X 2 TO 20CM SUCTION. NO AIR LEAK NOTED. REGINA DRAIN IN PLACE WITH SEROSANG DRAINAGAE NOTED. DRESSING ON LEFT LEG C/D/I. RLE HARVEST SITES OPEN TO AIR. PT ASSISTED UP TO CHAIR. TOLERATED WELL. CALL LIGHT PLACE IN REACH.WILL COTNINUE TO MONITOR.
--- NOTE | 2019-07-07 08:26 | NUR ---
TOOK OFF BIPAP AT THIS TIME. PLACED ON 3L NC. SPOUSE AT BEDSIDE. WILL CONTINUE TO MONITOR.
--- NOTE | 2019-07-07 09:00 | NUR ---
AM MEDS GIVEN. MEAL TRAY AT BEDSIDE. PT HAS POOR APPETITE. DENIES FURTHER NEEDS. WILL CONTINUE TO MONITOR.
--- NOTE | 2019-07-07 09:15 | NUR ---
PT DESATING TO 87% ON 3L NC. BREATHING RATE 30S. PLACED BACK ON BIPAP AT 40%.
--- NOTE | 2019-07-07 09:22 | NUR ---
SPOKE WITH DR. BAILEY REGARDING WHEN TO START LEVOPHED. IF MEAN ARTERIAL PRESSURE FALLS BELOW 60 START LEVOPHED DURING DIALYSIS.
--- NOTE | 2019-07-07 11:20 | NUR ---
PT STOOD UP AT BEDSIDE TO REPOSITION. HAS BEEN WORKING I.S. EVERY HOUR. STILL PULLS BETWEEN 500-750 ON I.S. WILL CONTINUE TO MONITOR.
--- NOTE | 2019-07-07 12:32 | NUR ---
PT TRANSFERRED TO BED. HR DROPPED INTO 40S. DR. JENNINGS NOTIFIED. HR WENT BACK UP TO 80S. PT DENIED FEELING LIKE SHE WAS GOING TO PASS OUT. TPM WIRES RECONNECTED BUT TPM NOT TURNED ON. CT TUBES REMOVED BY DR. JENNINGS. YAN CATHETER REMOVED PER DR. JENNINGS'S ORDER. NO FURTHER NEEDS AT THIS TIME. WILL CONTINUE TO MONITOR.
--- NOTE | 2019-07-07 13:51 | NUR ---
PT HR DROPPED DOWN TO 40S SEVERAL TIMES BUT WENT BACK UP TO 90S. DR. JENNINGS NOTIFIED. O2 SAT 88% ON 5L NC. DR. JENNINGS ORDERED 60% FACE MASK. WILL CONTINUE TO MONITOR CLOSELY.
--- NOTE | 2019-07-07 14:10 | NUR ---
PLACED PT ON BED WOMACK. HR DROPPED AGAIN TO 40S AND REMAINED THERE FOR ABOUT 10MIN. MADE AWARE OF HR IN 40S. BP 109/47. WILL CONTINUE TO MONITOR. NO ORDERS RECEIVED AT THIS TIME. WILL CONTINUE TO MONITOR.
--- NOTE | 2019-07-07 16:17 | NUR ---
DR. JENNINGS IN UNIT. ORDERED MAGNESIUM LAB AT THIS TIME. ALSO ORDERED TO CHANGE BREATHING TREATMENT TO XOPENEX. DR. RILEY NOTIFIED.
--- NOTE | 2019-07-07 16:22 | NUR ---
PT HR INCREASED TO 200S. APPEARS TO BE A-FIB. DR JENNINGS NOTIFIED. ORDERED 2.5 LOPRESSOR IV TO BE GIVEN.
--- NOTE | 2019-07-07 16:38 | NUR ---
HR CONTINUES IN 180S AFTER LOPRESSOR WAS GIVEN. DR. JENNINGS NOTIFIED. ORDERED 150MG AMIODARONE BOLUS AT THIS TIME.
--- NOTE | 2019-07-07 17:16 | NUR ---
SECOND AMIODARONE BOLUS GIVEN. HR REMAINS IN 130-150S, BP 80/39. DR. JENNINGS NOTIFIED. ORDERED 250ML BOLUS TO BE GIVEN OVER 1HR, AND 0.25MG IV DIGOXIN X ONE.
--- NOTE | 2019-07-07 17:46 | MORECARE ---
CASE MANAGEMENT DISCHARGE SUMMARY PATIENT: WILLIAMS GARCIA UNIT: [id number] ADM DATE: 07/05/19 AGE: 78 : 40 SEX: F ROOM/BED: [facility] AUTHOR: NII SEO PHYSICIAN: REFERRING PHYSICIAN: GEREMIAS JENNINGS MD DATE OF SERVICE: 07/07/19 Discharge Plan Patient Name: WILLIAMS GARCIA [facility] [facility] 1940 Planned Disposition: Home Anticipated Discharge Date: Discharge Date: Expected LOS: Initial Reviewer: [email or web address] Initial Review Date: 07/07/2019 Generated: 07/07/19 6:45 pm DCP- Discharge Planning Updated by [email or web address]: Meghan Zepeda on 07/06/19 6:[address] CM attempted to visit with patient regarding discharge planning/ needs. Patient requested CM to come back at a later time. CM will continue to follow and assist as needed with discharge planning / needs Last DP export: 07/06/19 6:34 p Patient Name: WILLIAMS GARCIA Page [phone] at 1746 All edits/amendments must be made on the electronic document DICTATION DATE: 07/07/191744 HEEL SLUGGER: CHRIS 07/07/191744 RPT#: [id number] DC DATE: STATUS: ADM IN [facility] [address] [place] [address] END OF REPORT
--- NOTE | 2019-07-07 17:55 | MORECARE ---
CASE MANAGEMENT DISCHARGE SUMMARY PATIENT: WILLIAMS GARCIA UNIT: [id number] ADM DATE: 07/05/19 AGE: 78 : 40 SEX: F ROOM/BED: D[facility] AUTHOR: GABBI,NII PHYSICIAN: REFERRING PHYSICIAN: GEREMIAS JENNINGS MD DATE OF SERVICE: 07/07/19 Discharge Plan Patient Name: WILLIAMS GARCIA Facility: [facility]:[place] : 1940 Planned Disposition: Home Anticipated Discharge Date: Discharge Date: Expected LOS: Initial Reviewer: [email or web address] Initial Review Date: 07/07/2019 Generated: 07/07/19 6:54 pm Comments DCP- Discharge Planning Updated by [email or web address]: Meghan Zepeda on 07/07/19 4:[address] Patient Name: WILLIAMS GARCIA Admission Status: Elective Accout number: [id number] Admission Date: 07-05-2019 : 1940 Admission Diagnosis:OCCLUSION AND STENOSIS OF UNSPECIFIED CAROTID ARTERY Attending: GEREMIAS JENNINGS Current LOS: 2 Anticipated DC Date: Planned Disposition: Home Primary Insurance: MEDICARE A & B Discharge Planning Comments: CM met with patient to complete initial dc planning assessment. CM educated patient on the CM role and verbal consent given by patient to complete assessment. Patient lives at home alone where she is independent with her care. At discharge patient plans to return home and feels this is a safe discharge. CM discussed availability of home health, rehab services, and medical equipment. Family will drive her home. Patient denied known discharge needs at this time. Patient may need walk test if 02 still needed at discharge. CM will continue to follow and will assist as needed with dc plans/needs. Courtroom Reporter: Meghan Zepeda DCP- Discharge Planning Updated by [id number]: Meghan Zepeda on 07/06/19 6:[address] CM attempted to visit with patient regarding discharge planning/ needs. Patient requested CM to come back at a later time. CM will continue to follow and assist as needed with discharge planning / needs DCPIA - Discharge Planning Initial Assessment Updated by [email or web address]: Meghan Zepeda on 07/07/19 5:48 pm * Is the patient Alert and Oriented? Yes * How many steps to enter\exit or inside your home? * PCP [facility] * Pharmacy [facility] * Preadmission Environment Home Alone * ADLs Independent * Equipment None * List name and contact numbers for known caregivers / representatives who currently or will assist patient after discharge: ALEXANDRE GARCIA - JOANN - [phone] GRISELDA GARCIA- JOANN - [phone] * Verbal permission to speak to the caregivers and representatives has been obtained from the patient. Yes * Community resources currently utilized None * Additional services required to return to the preadmission environment? No * Can the patient safely return to the preadmission environment? Yes * Has this patient been hospitalized within the prior 30 days at any hospital? No Last DP export: 07/07/19 4:46 p Patient Name: WILLIAMS GARCIA Page [id number] at 1755 All edits/amendments must be made on the electronic document DICTATION DATE: 07/07/191753 STUDY DIRECTOR: CHRIS 07/07/191753 RPT#: [id number] DC DATE: STATUS: ADM IN [facility] [address] [place] [address] END OF REPORT
--- NOTE | 2019-07-07 17:56 | NUR ---
250ML BOLUS INFUSING. DIGOXIN 0.25MG IV GIVEN. HR 90, BP 127/64. PT RESTING COMFORTABLY. HAD TWO INCONTINENT EPISODES. PERICARE AND PARTIAL LINEN CHANGE PROVIDED. SON AT BEDSIDE. MEAL TRAY SET UP. WILL CONTINUE TO MONITOR.
--- NOTE | 2019-07-07 18:15 | NUR ---
DR. JENNINGS ORDERED AMIODARONE AT 0.5MG/MIN AND DIGOXIN 0.25MG IV X 3 DOSES, THEN 0.25MG PO DAILY.
--- NOTE | 2019-07-07 19:35 | NUR ---
REPORT REC'D AND CARE ASSUMED, REC'D PT RESTING IN BED ON 50% VENTIMASK, AWAKE, ALERT, AND ORIENTED, RIJ CVL DRSG CDI WITH AMIODARONE INFUSING @ 16.7CC/HR OR 0.5MG/MIN, MIDSTERNAL DRSG CDI, SUBSTERNAL DRSG CDI P/M WIRES TO EXTERNAL P/M OFF AT THIS TIME, LEFT SUBSTERNAL REGINA DRAIN COMPRESSED WITH SEROSANGUINOUS DRAINAGE, RIGHT AND LEFT HARVEST SITES WITH DERMABOND, OPEN TO AIR WITHOUT DRAINAGE, TEDS AND SCDS TO BILAT LEGS, PPP, PT DENIES PAIN OR NEEDS, SR UP X 2, BED IN LOW POSITION, CALL LIGHT IN REACH.
--- NOTE | 2019-07-07 20:00 | NUR ---
VISITOR AT BS, UPDATE PROVIDED, PT REQUESTING SOMETHING TO MOISTEN MOUTH, ICE CHIPS PROVIDED ON REQUEST.
--- NOTE | 2019-07-07 21:05 | NUR ---
EVENING MEDS GIVEN WITHOUT DIFFICULTY, PT DENIES NEEDS, LIGHT TURNED OFF, BED IN LOW POSITION, CM SR @ 88, WILL CONT TO MONITOR FOR CHANGES.
--- NOTE | 2019-07-07 21:30 | NUR ---
PT INCONTINENT OF URINE, PARTIAL BATH AND LINEN CHANGE PROVIDED, PT REPOSITIONED IN BED FOR COMFORT, TOLERATED WELL, DENIES PAIN OR NEEDS
--- NOTE | 2019-07-07 23:30 | NUR ---
REASSESSMENT COMPLETED, PT PULLING 500-750 ON IS, PT STATES " I NEED TO WORK ON THAT SOME MORE", PRODUCTIVE COUGH WITH THICK LIGHT TREJO SPUTUM, PT ABLE TO CLEAR WITH YANKEUR, PT INCONTINENT OF URINE, PARTIAL BATH AND LINEN CHANGE PROVIDED, PUREWICK EXTERNAL FEMALE CATHETER PLACED FOR PT COMFORT, PT REPOSITIONED UP IN BED FOR COMFORT, SIPS OF WATER PROVIDED, PT DENIES FURTHER NEEDS, 8L HIGH FLOW CANNULA IN PLACE, PT REFUSING TO WEAR VENTIMASK AT THIS TIME, O2 SAT 93%, WILL MONITOR CLOSELY FOR CHANGES.
[2019-07-08] VITALS (24 sets, daily range): BP systolic 89–148; BP diastolic 40–74
--- NOTE | 2019-07-08 01:00 | NUR ---
PT CHANGED BACK TO 50 % VENTIMASK, O2 SAT 82% WHILE SLEEPING WITH HIGH FLOW CANNULA, O2 SAT SLOW TO RETURN TO 93%, VISIBLE TO NURSES STATION.
--- NOTE | 2019-07-08 03:00 | NUR ---
REASSESSMENT COMPLETED, NO CHANGES FROM PREVIOUS ASSESSMENT, BP STABLE, CM-SR, WILL CONTINUE TO MONITOR FOR CHANGES.
--- NOTE | 2019-07-08 04:00 | NUR ---
RADIOLOGY AT BS FOR AM CXR
--- NOTE | 2019-07-08 05:50 | NUR ---
AM LAB DRAWN FROM CVL AND SENT TO LAB, AM MEDS GIVEN ORDERED.
--- NOTE | 2019-07-08 06:00 | NUR ---
CHG BATH AND COMPLETE LINEN CHANGE PROVIDED, PT TOLERATED WELL, PT ASSISTED X 2 ASSISTS TO MOVE TO RECLINER, BS TABLE, CALL LIGHT, AND YANKEUR WITHIN REACH, PT DENIES NEEDS.
[2019-07-08 06:16] LABS: HEMOGLOBIN 10.9 g/dL (12-16); MCV 93.8 fL (80.0-100.0); MEAN PLATELET VOLUME 10.5 fL (7.4-10.4); RBC 3.52 10x6/uL (4.00-5.40); RDW 13.9 % (11.5-14.5); WBC 13.4 10x3/uL (4.8-10.8)
[2019-07-08 06:37] LABS: ALBUMIN 1.9 g/dL (3.4-5.0); ALKALINE PHOSPHATASE 53 U/L (46-116); ALT (SGPT) 52 U/L (10-68); BILIRUBIN - TOTAL 0.25 mg/dL (0.2-1.3); CALC OSMOLALITY 286 mosm/kg (275-300); CALCIUM 8.4 mg/dL (8.5-10.1); CARBON DIOXIDE 34.3 mmol/L (21.0-32.0); CHLORIDE - SERUM 106 mmol/L (98-107); CREATININE - SERUM 0.6 mg/dL (0.6-1.3); GLUCOSE 143 mg/dL (74-106); MAGNESIUM - SERUM 2.1 mg/dL (1.8-2.4); POTASSIUM - SERUM 4.4 mmol/L (3.5-5.1); PROTEIN - SERUM 5.5 g/dL (6.4-8.2); SODIUM 142 mmol/L (136-145); UREA NITROGEN 18 mg/dL (7-18); eGFR NON AFRICAN AMERICAN > 90 mL/min (90-120)
[2019-07-08 06:45] LABS: PHOSPHOROUS 2.8 mg/dL (2.5-4.9)
--- NOTE | 2019-07-08 10:25 | NUR ---
Nutrition Follow-up: POD3 CABG. Tolerating PO intake but reports she is still not eating much. Declines Glucerna. Diet: Cardiac ADA PO intake: 10-20% yesterday Wt: 177# Last BM: prior to admit per pt Labs noted: Glu 143 Meds noted: Solumedrol, Senokot, Colace Continue current diet as tolerated. Encourage PO intake. [place] food preferences within diet restrictions. RD following.
--- NOTE | 2019-07-08 15:58 | NUR ---
1530-NOTED UCAF 138-RR 18-ATTEMPTED DR JENNINGS CALL NO CONNECTION/CONTACT MADE-TELEPHONE OUTSIDE LINES-NO LINK- 1535-REPEATED EFFORT-PT REMAINS IN AFIB 130'S-NIBP 119-NO CONNECTION OR CONTACT MADE?--CALLED [facility] TO OFFICE IN BUILDING-DR BARRIOS AVAILABLE AT OFFICE-DR JENNINGS NOT PRESENT-SITUATION EXPLAINED-CURRENT STATUS AND PREVIOUS RX INFORMED-ORDERS RECIEVED 1550-CORDARONE 150MG BOLUS STARTED ORDERED-
--- NOTE | 2019-07-08 18:10 | NUR ---
REMAINS AFIB 120-140--VISITORS LEFT ROOM-RESTING QUIETLY IN BED--
--- NOTE | 2019-07-08 18:12 | NUR ---
0930-HR 51 SR WITH PAC-NOTIFIED DR JENNINGS OF SAME -CORDARONE GTT TURNED OFF-PT UP IN CHAIR AND AMBULATED WITH P;HYSCIAL THERAPY IN ROOM-O2 10L OXIMYZER 1030-DR JENNINGS AT [facility]-ORDERS RECIEVED AND NOTED
--- NOTE | 2019-07-08 19:00 | NUR ---
PT ASSESSMENT COMPLETED AT THIS TIME, PT STILL IN UNCONTROLLED A-FIB RATE FROM 130-150, AMIODARONE DRIP INFUSING. PT AAOX4, NO COMPLAINTS AT THIS TIME
--- NOTE | 2019-07-08 21:04 | NUR ---
PT HR CONVERTED TO NSR RATE OF 85, PT DENIES ANY COMPLIANTS AT THIS TIME
--- NOTE | 2019-07-08 23:00 | NUR ---
PT REASSESSMENT COMPLETED AT THIS TIME, NO CHANGES NOTED, VSS, WILL CONT TO MONITOR FOR CHANGES
[2019-07-09] VITALS (20 sets, daily range): BP systolic 99–151; BP diastolic 48–88
--- NOTE | 2019-07-09 01:00 | NUR ---
PT RESTING WITH EYES CLOSED, RESP EVEN, VSS, WILL MONITOR FOR CHANGES
--- NOTE | 2019-07-09 03:00 | NUR ---
PT REASSESSMENT COMPLETED AT THIS TIME, NO CHANGES NOTED
--- NOTE | 2019-07-09 05:00 | NUR ---
PT RESTING WITH EYES CLOSED, RESP EVEN, VSS AT THIS TIME, WILL MONITOR FOR CHANGES
[2019-07-09 06:24] LABS: HEMATOCRIT 30.6 % (36.0-48.0); MCH 30.6 pg (26.0-34.0); MCHC 32.7 g/dL (31.0-37.0); MCV 93.6 fL (80.0-100.0); MEAN PLATELET VOLUME 10.7 fL (7.4-10.4); RBC 3.27 10x6/uL (4.00-5.40); RDW 14.1 % (11.5-14.5)
[2019-07-09 06:25] LABS: WBC 9.9 10x3/uL (4.8-10.8)
[2019-07-09 06:34] LABS: ALBUMIN 1.7 g/dL (3.4-5.0); ALKALINE PHOSPHATASE 51 U/L (46-116); BILIRUBIN - TOTAL 0.31 mg/dL (0.2-1.3); CALCIUM 7.8 mg/dL (8.5-10.1); CARBON DIOXIDE 31.5 mmol/L (21.0-32.0); CHLORIDE - SERUM 107 mmol/L (98-107); CREATININE - SERUM 0.7 mg/dL (0.6-1.3); GLUCOSE 151 mg/dL (74-106); POTASSIUM - SERUM 4.5 mmol/L (3.5-5.1); PROTEIN - SERUM 4.5 g/dL (6.4-8.2); SODIUM 144 mmol/L (136-145); eGFR NON AFRICAN AMERICAN 86 mL/min (90-120)
[2019-07-09 06:35] LABS: ALT (SGPT) 38 U/L (10-68); CALC OSMOLALITY 293 mosm/kg (275-300); UREA NITROGEN 25 mg/dL (7-18)
--- NOTE | 2019-07-09 15:14 | NUR ---
1030-CORDARONE GTT COMPLETED AND IV SALINE LOCKED -AMBULATING TO REST ROOM WITH MINIMAL ASSISTANCE- 1145-DR BARRIOS AT [facility]-PLACED PACER AT 40 VVI-O2 REMAINS 11L HIGH FLOW 1300-DR RILEY AT BEDSIDE -PT ONLY ABLE TO REACH 500ML ON INCENTIVE SPIROMETRY PERSISTANT EFFORT-PRODUCTIVE COUGH-DR RILEY SPOKE WITH PT REGARDING RAMIFICATIONS AND SUGGESTED COURSE OF TREATMENT-PT AGREEABLE TO SAME-STATES WILL HAVE DIFFICULT TIME TO QUIT SMOKING 1500-DRG TO PACER WIRES AND REGINA DRAIN CHANGED-PACER WIRES INTACT
--- NOTE | 2019-07-09 20:55 | NUR ---
EVENING MEDS GIVEN ORDERED, PT DENIES NEEDS, VSS, WILL MONITOR CLOSELY FOR CHANGES.
--- NOTE | 2019-07-09 22:45 | NUR ---
RT AT BS, PT PLACED ON BIPAP AT 45%, O2 SAT 95%, PT CALM AND COOPERATIVE.
--- NOTE | 2019-07-09 23:00 | NUR ---
REASSESSMENT COMPLETED AT THIS TIME, PT RESTING ON BIPAP, BP STABLE, CM-SR @ 81, EXTERNAL TEMP P/M VVI @ 40 VMA 10, SENSING AT THIS TIME, SR UP X 2, CALL LIGHT IN REACH.
[2019-07-10] VITALS (27 sets, daily range): BP systolic 77–126; BP diastolic 46–87
--- NOTE | 2019-07-10 00:10 | NUR ---
BIPAP REMOVED, PT STATES " I FEEL LIKE I AM SUFFOCATING WITH THAT THING ON", ASSISTED PT TO BATHROOM, INSTRUCTED TO CALL FOR ASSISTANCE BEFORE RETURNING TO BED.
--- NOTE | 2019-07-10 00:20 | NUR ---
PT ASSISTED BACK TO BED AND ASSISTED TO REPOSITION FOR COMFORT, PT DOES NOT WANT BIPAP MASK BACK ON, SPOKE WITH RT, PT OKAY TO LEAVE MASK OFF FOR NOW. O2 @ 10 LITERS VIA HIGH FLOW.
--- NOTE | 2019-07-10 02:00 | NUR ---
NO CHANGES IN STATUS AT THIS TIME
--- NOTE | 2019-07-10 02:00 | NUR ---
NO CHANGES IN STATUS AT THIS TIME
--- NOTE | 2019-07-10 04:40 | NUR ---
RADIOLOGY AT BS FOR AM CXR
--- NOTE | 2019-07-10 05:25 | NUR ---
UCAF AT A RATE OF 152 NOTED ON MONITOR, DR. BARRIOS NOTIFIED, NEW ORDERS REC'D.
--- NOTE | 2019-07-10 05:40 | NUR ---
AMIODARONE BOLUS 150MG GIVEN ORDERED, INSUFFICENT AMOUNT OF AMIODARONE IN PYXIS, FOLDER SEAMER NOTIFIED.
--- NOTE | 2019-07-10 06:15 | NUR ---
PT RESTING QUIETLY WATCHING TV, AM MEDS GIVEN WITHOUT DIFFICULTY, AWAITING AMIODARONE GTT.
[2019-07-10 06:29] LABS: HEMATOCRIT 32.1 % (36.0-48.0); HEMOGLOBIN 10.3 g/dL (12-16); MCH 30.1 pg (26.0-34.0); MCHC 32.1 g/dL (31.0-37.0); MCV 93.9 fL (80.0-100.0); MEAN PLATELET VOLUME 10.2 fL (7.4-10.4); RBC 3.42 10x6/uL (4.00-5.40)
--- NOTE | 2019-07-10 06:30 | NUR ---
AMIODARONE 1MG/MIN OR 10CC/HR BEGAN VIA RIGHT IJ CVL, CM-UCAF 140 BP 101/59, PT DENIES NEEDS, SR UP X 2, CALL LIGHT IN REACH.
[2019-07-10 06:31] LABS: WBC 6.8 10x3/uL (4.8-10.8)
[2019-07-10 07:31] LABS: ALBUMIN 1.9 g/dL (3.4-5.0); BILIRUBIN - TOTAL 0.41 mg/dL (0.2-1.3); CALCIUM 7.7 mg/dL (8.5-10.1); CARBON DIOXIDE 33.4 mmol/L (21.0-32.0); MAGNESIUM - SERUM 1.8 mg/dL (1.8-2.4); PHOSPHOROUS 2.5 mg/dL (2.5-4.9); PROTEIN - SERUM 4.8 g/dL (6.4-8.2)
[2019-07-10 07:36] LABS: ANION GAP 8.3 mmol/L (8-16); CREATININE - SERUM 0.9 mg/dL (0.6-1.3); POTASSIUM - SERUM 3.7 mmol/L (3.5-5.1)
--- NOTE | 2019-07-10 10:29 | NUR ---
729-RECIEVED AWAKE AND ALERT-REQUESTING RESTROOM-HR 157 AFIB NIBP 101/58-ASSISTED TO BEDSIDE COMMODE-PT STATING CANNOT STAY IN BED ANYLONGER-REFUSES BIPAP MACHINE-STATED YOU WILL HAVE TO KNOCK ME OUT TO DO THAT AGAIN- 744-CAMPLETE AM CARE DONE-PT AGREEABLE TO REURN TO BEDREST-TYLENOL ES GIVEN FOR GENERAL DISCOMFORT -DENTIES ANY INCISIONAL PAIN 0800-K 3.5-KCL RIDER STARTED PER PRN S/S 1030-NOTED AFLUTTER 144 DR BARRIOS PG'D REGARDING SAME-MAG LEVEL 1.8
--- NOTE | 2019-07-10 14:15 | NUR ---
1215-DR RILEY AT BEDSIDE-PT STATED WILL NOT USE BIPAP MACHINE [id number] CHINN ATTEMPTED TO STRESS BENEIFIT WILL PROVIDE-PT ADAMENT NO 1230-PT REMAINS IN BED HR 148-NIBP 86/59-DR BARRIOS AT BEDSIDE-PT STATED I NEED TO GET OUT OF BED TO GET BETTER-DIRECTED OUT OF BED TOLERATED-AMBULATED TO RESTROOM WITH AIDE OF WALKER-BALANCE SUPX-[id number] BECAUSE SPENT TOO MUCH TIME IN BED-ASSISTED TO BEDSIDE CHAIR WITH 2 RN AND WALKER-HR 148 NIBP 92/56 1315-CALLED STAFF AND STATED SICK TO STOMACH-NOTED NIBP 86/58- WITH AIDE OF PHYSICAL THERAPIST RETURNED PT TO BED AND ENCOURAGED TO REMAIN UNTIL HR SLOWS 1400 DR BARRIOS NOTIFIED OF HR 138 AFIB ORDER RECIEVED AND NOTED-
--- NOTE | 2019-07-10 17:22 | NUR ---
5185-UPDATE SENT TO DR BARRIOS REGARDING UCAF 213-003-MNGU NIBP 95/58-ORDER RECIEVED AND NOTED-CORDARONE INCREASED TO 1MG/MIN 1700-SAT AT SIDE OF BED FOR DINNER TRAY-STATED DID NOT FEEL WELL ENOUGH FOR CHAIR-[id number]/58-HR 133 UNCAF
--- NOTE | 2019-07-10 19:00 | NUR ---
REPORT RECEIVED, SHIFT ASSESSMENT PER FLOW SHEET, PT UCAF ON CM, HR 120-140'S DAY SHIFT RN STATED AWARE, CORDERONE @1MG/HR PER UNTIL PT CONVERTS RHYTHM, PT AAOx4, HIGH FLOW NC @10L/MIN, TPM CONNECTED VVI RATE @ RATE 40, I/S AND FLUTTER DEVICE COMPLETED, PT HAS PRODUCTIVE COUGH, PT STATES GENERALIZED PAIN BUT REFUSES PAIN MEDS, ON ASSESSMENT PT SITTING IN BEDSIDE CHAIR, ASISTED PT BACK TO BED PER REQUEST. LINES AND CABLES REPOSITIONED, HOB ELEVATED, OTHER VSS, PPP, WILL CONTINUE TO MONITOR
--- NOTE | 2019-07-10 21:00 | NUR ---
mEDS GIVEN PER dec/ORDERS, I/S AND FLUTTER DEVICE COMPLETED, SINUS TACH ON CM, OTHER VSS
--- NOTE | 2019-07-10 23:00 | NUR ---
REASSESSMENT COMPLETE, NO ACUTE CHANGES SINCE PRIOR ASSESSMENT, SINUS TACH ON CM OTHER VSS. TURN COUGH DEEP BREATHE I/S COMPLETE, PT DENIES PAIN OR NEEDS AT THIS TIME, WILL CONTINUE TO MONITOR
[2019-07-11] VITALS (24 sets, daily range): BP systolic 63–143; BP diastolic 29–71
--- NOTE | 2019-07-11 04:28 | NUR ---
PT ELISABETH @ 71bpm @ 0414 AM
[2019-07-11 06:00] LABS: BASOPHILS 0 % (0-2); EOSINOPHILS 0.6 % (0-7); HEMATOCRIT 30.3 % (36.0-48.0); HEMOGLOBIN 9.8 g/dL (12-16); IMMATURE GRANULOCYTES 0.7 % (0-5); LYMPHOCYTES 21.3 % (15-50); MCH 30.3 pg (26.0-34.0); MCHC 32.3 g/dL (31.0-37.0); MCV 93.8 fL (80.0-100.0); MEAN PLATELET VOLUME 10.3 fL (7.4-10.4); MONOCYTES 15.3 % (2-11); NEUTROPHILS 62.1 % (40-80); PLATELET COUNT 215 10x3/uL (130-400); RBC 3.23 10x6/uL (4.00-5.40); RDW 13.6 % (11.5-14.5); WBC 6.9 10x3/uL (4.8-10.8)
[2019-07-11 06:28] LABS: ANION GAP 7.1 mmol/L (8-16); CARBON DIOXIDE 33.4 mmol/L (21.0-32.0); CREATININE - SERUM 0.9 mg/dL (0.6-1.3)
[2019-07-11 06:35] LABS: PHOSPHOROUS 3.3 mg/dL (2.5-4.9); POTASSIUM - SERUM 4.5 mmol/L (3.5-5.1)
--- NOTE | 2019-07-11 08:40 | NUR ---
VERIFIED DR. BARRIOS NEED FOR AMIODARONE AND PACEMAKER RATE. WANTS RATE TO REMAIN AT 40 AND AMIODARONE AT 0.5MG/MIN.
--- NOTE | 2019-07-11 09:48 | NUR ---
AMBULATED TO BATHROOM. CHG BATH GIVEN. PT BATHED SELF. MINIMAL ASSISTANCE NEEDED. ORAL CARE PERFORMED INDEPENDENTLY. CLEAN GOWN PROVIDED. COMPLETE LINEN CHANGE PROVIDED. WILL CONTINUE TO MONITOR.
--- NOTE | 2019-07-11 10:39 | NUR ---
ASSISTED UP TO BEDSIDE COMMODE. VOIDED ABOUT 300ML OF YELLOW URINE.
--- NOTE | 2019-07-11 10:52 | NUR ---
Nutrition Follow-up: Pt reports that appetite remains poor; states that this happens from time to time at home. Refuses Glucerna. Diet: Cardiac ADA PO intake: 20% x 3 meals (07/10) Wt: 179# Last BM: pt reports 1 BM since admit; none recorded Labs noted: Glu 149, Ca 8.0, K+ 4.5 Meds noted: Lasix, KCl, Senokot, Colace Continue current diet as tolerated. Encourage PO intake. [place] food preferences within diet restrictions. MD may consider appetite stimulant. RD following.
--- NOTE | 2019-07-11 11:31 | NUR ---
ASSISTED UP TO BEDSIDE COMMODE. VOIDED ABOUT 350ML OF CLEAR, LIGHT YELLOW URINE. WARM BLANKET PROVIDED. WILL CONTINUE TO MONITOR.
--- NOTE | 2019-07-11 14:00 | NUR ---
ASSISTED UP TO BEDSIDE COMMODE. VOIDED ABOUT 400ML OF CLEAR, LIGHT YELLOW URINE.
--- NOTE | 2019-07-11 14:57 | NUR ---
VENOUS ACCESS NURSE NOTIFIED OF CONSULT FOR PICC LINE PLACEMENT.
--- NOTE | 2019-07-11 15:12 | NUR ---
BETAPACE 40MG GIVEN PER ORDERS. AMIODARONE DRIP DC'D PER ORDERS.
--- NOTE | 2019-07-11 15:22 | NUR ---
ASSISTED BACK TO BED. VENOUS ACCESS NURSE AT BEDSIDE.
--- NOTE | 2019-07-11 19:00 | NUR ---
REPORT RECEIVE, SHIFT ASSESSMENT COMPLETE PER FLOW SHEET, PT AAOx4, DENIES PAIN OR NEEDS AT THIS TIME, MIDSTERNAL/SUBSTERNAL INCISION SITES C/D/I, SUBSTERNAL TPM WIRES CONNECTED TO PT, REPOSITIONED PT FOR COMFORT, VSS, WILL CONTINUE TO MONITOR
--- NOTE | 2019-07-11 21:00 | NUR ---
MEDS GIVEN PER MAR/ORDERS, PT TOLLERATED WELL, DENIES NEEDS AT [facility], VSS, WILL CONTINUE TO MONITOR
--- NOTE | 2019-07-11 23:00 | NUR ---
REASSESSMENT COMPLETE SEE FLOW SHEET, NO ACUTE CHANGES OR S/S OF DISTRESS NOTED, REPOSITIONED FOR COMFORT, WILL CONTINUE TO MONITOR
[2019-07-12] VITALS (27 sets, daily range): BP systolic 94–146; BP diastolic 40–69
--- NOTE | 2019-07-12 01:00 | NUR ---
ASSISTED PT TO BEDSIDE COMMODE, VOID X1 CLEAR YELLOW URINE, ASSISTED PT BACK TO BED, REPOSITIONED FOR COMFORT, VSS
--- NOTE | 2019-07-12 03:00 | NUR ---
REASSESMENT COMPLETE SEE FLOW SHEET, PT AAOx4, DENIES PAIN OR NEEDS, VSS, REPOSITIONED FOR COMFORT, WILL CONTINUE TO MONITOR
--- NOTE | 2019-07-12 05:00 | NUR ---
ASSISTED PT TO BEDSIDE CHAIR, REPOSITIONED LINES, PT TOLLERATING WELL, VSS, WILL CONTINUE TO MONITOR
[2019-07-12 06:58] LABS: BASOPHILS 0.1 % (0-2); EOSINOPHILS 1.9 % (0-7); HEMATOCRIT 31.3 % (36.0-48.0); IMMATURE GRANULOCYTES 0.8 % (0-5); LYMPHOCYTES 17.5 % (15-50); MCH 29.9 pg (26.0-34.0); MCHC 31.9 g/dL (31.0-37.0); MCV 93.4 fL (80.0-100.0); MONOCYTES 17.5 % (2-11); NEUTROPHILS 62.2 % (40-80); PLATELET COUNT 217 10x3/uL (130-400); RBC 3.35 10x6/uL (4.00-5.40); RDW 13.6 % (11.5-14.5)
[2019-07-12 07:14] LABS: ALBUMIN 1.8 g/dL (3.4-5.0); ANION GAP 6.5 mmol/L (8-16); BILIRUBIN - TOTAL 0.42 mg/dL (0.2-1.3); CALCIUM 8.3 mg/dL (8.5-10.1); CARBON DIOXIDE 35.3 mmol/L (21.0-32.0); CREATININE - SERUM 0.9 mg/dL (0.6-1.3); MAGNESIUM - SERUM 1.8 mg/dL (1.8-2.4); POTASSIUM - SERUM 3.8 mmol/L (3.5-5.1); PROTEIN - SERUM 5.3 g/dL (6.4-8.2)
--- NOTE | 2019-07-12 09:36 | NUR ---
0700 PT RECIEVED UP IN CHAIR ALERT AN DORIENTED O2 7L R PICC DRESSING CDI MIDSTERNAL AND SUBSTERNAL DRESSINGS CDI WITH SUBSTERNAL TPM DRESSING CDI VVI 40 VMA 10, BLE HARVEST SITES OPEN TO AIR TEDS AND SCDS IN PLACE 0800 BREAKFAST TRAY GIVEN 0900 ATE 25% BREAKFAST, AM MEDS GIVEN PER EMAR 0930 AMBULATED WITH PT, BATH GIVEN, HR 57-59 SINUS, DR JENNINGS NOTIFIED NO NEW ORDERS
--- NOTE | 2019-07-12 09:52 | NUR ---
HR MAME SINUS 48 BUT SUSTAINING IN 50S WITH BP 119/41 DR JENNINGS NOTIFIED AND NO NEW ORDERS
--- NOTE | 2019-07-12 10:01 | NUR ---
PER DR JENNINGS WILL NOTIFY IF HR SUSTAINS 40 OR BP DROPPS
--- NOTE | 2019-07-12 13:38 | TEE ---
PATIENT:WILLIAMS GARCIA MEDICAL RECORD: [id number] LOCATION:[place] [address] AGE OF PATIENT: 78 ADMISSION DATE: 07/05/19 SEX: F REFERRING PHYSICIAN: INTERPRETING PHYSICIAN: RENEE WILSON MD TRANSESOPHAGEAL ECHOCARDIOGRAM Date: 07/05/19 CHRISTINE CHARGE Y INDICATIONS: CABG PREMEDICATIONS: PATIENT'S RESPONSE PROCEDURE DOPPLER MEASUREMENTS: LVIT LA 3.2 PA RA LVOT RVOT Asc. Ao AV Gradient Peak AV Mean AV Area MV Gradient Peak MV Mean MV Area INTERPRETATION: Doppler: 2-D: COLOR FLOW DOPPLER NORMAL SALINE STUDY: MISCELLANOUS: DIAGNOSIS: PLAN: Director Of Financial Planning:1 Dr. Wilson Whale Trainer: [place] AMAYA COMMENTS: DICK/GREGORIO PATIENT DATE OF SERVICE: 07/05/2019 PROCEDURE: Transesophageal echo evaluation of valvular structures during bypass surgery. FINDINGS: 1. Left ventricular chamber size is within normal limits. Left ventricular systolic function is normal at 55% to 60%. 2. Left atrium, right atrium, and right ventricular chamber sizes are within TRANSESOPHAGEAL ECHOCARDIOGRAM REPORT [id number] LAURI GARCIA normal limits. 3. Valvular structures have normal structure and motion. 4. Doppler interrogation reveals no significant valvular insufficiency or stenosis. 5. No evidence of pericardial effusion or left ventricular thrombus. TRANSINT:[id number] Voice Confirmation ID: [id number] DOCUMENT ID: [id number] at 1338 CC: [id number] DICTATION DATE: 07/05/19 173 MSWS: 07/06/19 [address] [facility] [address] [place] [address]
--- NOTE | 2019-07-12 15:54 | NUR ---
1130 LUNCH TRAY SERVED 1330 ATE 25% LUNCH TRAY 1400 AMBULATED WITH PT 1500 ASSSITED TO BATHROOM, VOIDED AND ASSISTED BACK TO CHAIR
--- NOTE | 2019-07-12 17:06 | NUR ---
PT ATE 25% DINNER AND WAS ASSISTED BACK TO BED. WITH EVERY MEAL PT HAS HAD ALTERNATIVES OFFERED AND PT CONTINUALLY REFUSES, ASKED PT IF THERE WAS ANYTHING SHE WOULD EAT AND SHE STATED "YALL WOULDNT MAKE IT RIGHT" ASKED WHAT "IT" WAS AND THAT WE COULD ATTEMPT AND PT REFUSED. PT STATED SHE WAS UNHAPPY WITH NOT BEING IN THE BED EARLIER, EXPLAINED THAT PT HAD A PRODUCTIVE COUGH AND POOR LUNG SOUNDS AND THAT BEING UP AND MOVING WOULD HELP TO CLEAR THAT, PT STATED "I DONT CARE I OUGHTA JUST LEAVE" EXPLAINED THAT PT NEEDS LOWER O2 REQUIREMENTS AND TO NOT REQUIRE A TPM ALONG WITH INCREASING AMBULATION TO BE ABLE TO SAFELY LEAVE, ATTEMPTED TO DISCUSS HAVING A POSITIVE ATTITUDE AND THE REASONS FOR BEING OUT OF THE CHAIR AND PT CONTINUED TO SAY "YOU DONT KNOW EVERYTHING AND YOU DONT KNOW WHATS GOOD FOR ME" DISCUSSED THAT SHE IS OUT OF BED AND IN THE CHAIR DURING THE DAY PER DR JENNINGS AND SHE STATED "ILL TELL HIM THAT TOO, I DONT CARE". SUBSTERNAL DRESSING CHANGED AND CALL LIGHT WITHIN REACH IN BED AT THIS TIME, DENIES ALL NEEDS.
--- NOTE | 2019-07-12 19:00 | NUR ---
PT AOX4, VSS, DENIES PAIN AT THIS TIME. S1S2 HEARD, PERIPHERAL PULSES PRESENT. TPM SECURED, VVI. CHEST DRSGS CDI. 6L O2 VIA HFNC, SPO2 94. COUGH/DB WITH GOOD EFFORT, REACHING 750 ON I/S. PT REPOSITIONED FOR COMFORT. DENIES FURTHER NEEDS AT THIS TIME. CALL LIGHT AND BEDSIDE TABLE WITHIN PT REACH. CPOC.
--- NOTE | 2019-07-12 21:15 | NUR ---
FAMILY AT BEDSIDE, UPDATE PROVIDED. PT DENIES NEEDS. VSS, NO S/S OF ACUTE DISTRESS NOTED.
--- NOTE | 2019-07-12 21:52 | NUR ---
FRESH WATER TO BEDSIDE, HS MEDS GIVEN WITH NO DIFFICULTY NOTED. VSS, NO C/O PAIN. PT REPOSITIONED FOR COMFORT, PARTIAL LINEN CHANGE PROVIDED.
--- NOTE | 2019-07-12 23:00 | NUR ---
REASSESSMENT COMPLETE, SEE FLOWSHEET FOR ALL FINDINGS. PT ASSISTED UP TO BATHROOM, TOLERATED WELL. PARTIAL LINEN CHANGE PROVIDED. I/S COMPLETED REACHING UP TO 1000 X10. DENIES FURTHER NEEDS. CALL LIGHT AND BEDSIDE TABLE WITHIN PT REACH. CPOC.
[2019-07-13] VITALS (25 sets, daily range): BP systolic 90–146; BP diastolic 34–62
--- NOTE | 2019-07-13 01:00 | NUR ---
PT RESTING QUIETLY WITH NO S/S OF PAIN OR DISTRESS. VSS. REPOSITIONED SELF INDEPENDENTLY. CALL LIGHT WITHIN PT REACH. CPOC.
--- NOTE | 2019-07-13 03:30 | NUR ---
REASSESMSMENT COMPLETE, NO NEW CHANGES AT THIS TIME. PT REPOSITIONED, PROMINENCES BRIDGED. COUGH/DB/IS COMPLETED. DENIES PAIN. DENIES NEEDS. VSS, CPOC.
--- NOTE | 2019-07-13 06:00 | NUR ---
UP TO CHAIR, COMPLETE LINEN CHANGE PROVIDED. VSS, I/S COMPLETED. DENIES PAIN. DENIES NEEDS. CALL LIGHT AND BEDSIDE TABLE WITHIN PT REACH. CPOC.
[2019-07-13 06:24] LABS: ALBUMIN 1.5 g/dL (3.4-5.0); ANION GAP 6.1 mmol/L (8-16); BILIRUBIN - TOTAL 0.29 mg/dL (0.2-1.3); CALCIUM 8.2 mg/dL (8.5-10.1); CARBON DIOXIDE 33.7 mmol/L (21.0-32.0); CREATININE - SERUM 0.9 mg/dL (0.6-1.3); POTASSIUM - SERUM 3.8 mmol/L (3.5-5.1); PROTEIN - SERUM 4.9 g/dL (6.4-8.2)
--- NOTE | 2019-07-13 08:24 | NUR ---
0700 PT RECIEVED UP IN CHAIR ALERT AND ORIENTED VSSDENIES PAIN O2 6L, R PICC DRESSING CDI, SL, MIDSTERNAL AND SUBSTERNAL DRESSINGS CDI WITH SUBSTERNAL TPM WIRES, TPM VVI40 VMA 10, HR 50-60S SINUS, BLE INCISION SITES KIAN 0800 BREAKFAST TRAY SERVED, PT REFUSED, STATED SHE DIDNT WANT ANYTHING, ALTERNATIVES OFFERED AND PT REFUSED, ASKED IF SHE COULD EAT ANYTHING WHAT WOULD IT BE AND WE COULD TRY TO GET IT AND SHE REFUSED, MENU FOR DAY DONE, PT STATED SHE WOULD EAT NOTHING. AM MEDS GIVEN, DR JENNINGS NOTIFIED OF HR 59, STATED TO HOLD BETAPACE FOR HR LESS THAN 60.
[2019-07-13 09:03] LABS: BASOPHILS 0 % (0-2); HEMATOCRIT 28.9 % (36.0-48.0); HEMOGLOBIN 9.4 g/dL (12-16); IMMATURE GRANULOCYTES 0.9 % (0-5); LYMPHOCYTES 19.2 % (15-50); MCH 30.3 pg (26.0-34.0); MCHC 32.5 g/dL (31.0-37.0); MCV 93.2 fL (80.0-100.0); MEAN PLATELET VOLUME 10.4 fL (7.4-10.4); MONOCYTES 17.7 % (2-11); NEUTROPHILS 60.2 % (40-80); PLATELET COUNT 250 10x3/uL (130-400); RDW 13.7 % (11.5-14.5); WBC 7.4 10x3/uL (4.8-10.8)
--- NOTE | 2019-07-13 13:58 | NUR ---
PT SIGNED CONSENT FOR THORACENTESIS
--- NOTE | 2019-07-13 14:13 | NUR ---
Rehab Prescreening Consult recieved and the chart has been reviewed. She meets criteria and will be accepted when she is medically stable for discharge to rehab. Discussed with the CM Meghan Zepeda. Blaire Borrero RN Clinical Liaison, Rehab
--- NOTE | 2019-07-13 17:50 | NUR ---
1000 AMBULATED WITH PT 1130 ATE 50% LUMCH
--- NOTE | 2019-07-13 17:51 | NUR ---
SON HERE FOR VISITATION, UPDATE PROVIDED, PT DENIES ALL NEEDS, EATING TOMATO SOUP
--- NOTE | 2019-07-13 18:29 | NUR ---
PT ASSISTED TO BATHROOM AND BACK TO BED
--- NOTE | 2019-07-13 19:00 | NUR ---
REPORT RECEIVED FROM OFF GOING NURSE. PT IS RESTING IN BED WATCHING TV AT THIS TIME. INITIAL ASSESSMENT COMPLETED. DRESSINGS ARE CDI. TPM IS SECURED TO CHEST. SEE FLOWSHEET FOR FURTHER DETAILS. NO SIGNS OF ACUTE DISTRESS. WILL CONTINUE TO MONITOR.
--- NOTE | 2019-07-13 19:02 | MORECARE ---
CASE MANAGEMENT DISCHARGE SUMMARY PATIENT: WILLIAMS GARCIA UNIT: [id number] ADM DATE: 07/05/19 AGE: 78 : 40 SEX: F ROOM/BED: [facility] AUTHOR: GABBI,DOC PHYSICIAN: REFERRING PHYSICIAN: GEREMIAS JENNINGS MD DATE OF SERVICE: 07/13/19 Discharge Plan Patient Name: WILLIAMS GARCIA Facility: [facility]:[place] : 1940 Planned Disposition: Home Anticipated Discharge Date: Discharge Date: Expected LOS: Initial Reviewer: [email or web address] Initial Review Date: 07/07/2019 Generated: 07/13/19 8:02 pm Comments DCP- Discharge Planning Updated by [id number]: Meghan Zepeda on 07/13/19 6:[address] Inpatient rehab evaluation today. Inpatient rehab will accept patient once medically stable for discharge. CM will continue to follow and assist as needed with discharge planning / needs. DCP- Discharge Planning Updated by [id number]: Meghan Zepeda on 07/07/19 4:[address] Patient Name: WILLIAMS GARCIA Admission Status: Elective Accout number: [id number] Admission Date: 07-05-2019 : 1940 Admission Diagnosis:OCCLUSION AND STENOSIS OF UNSPECIFIED CAROTID ARTERY Attending: GEREMIAS JENNINGS Current LOS: 2 Anticipated DC Date: Planned Disposition: Home Primary Insurance: MEDICARE A & B Discharge Planning Comments: CM met with patient to complete initial dc planning assessment. CM educated patient on the CM role and verbal consent given by patient to complete assessment. Patient lives at home alone where she is independent with her care. At discharge patient plans to return home and feels this is a safe discharge. CM discussed availability of home health, rehab services, and medical equipment. Family will drive her home. Patient denied known discharge needs at this time. Patient may need walk test if 02 still needed at discharge. CM will continue to follow and will assist as needed with dc plans/needs. Financial Agent: Meghan Zepeda DCP- Discharge Planning Updated by [id number]: Meghan Zepeda on 07/06/19 6:[address] CM attempted to visit with patient regarding discharge planning/ needs. Patient requested CM to come back at a later time. CM will continue to follow and assist as needed with discharge planning / needs DCPIA - Discharge Planning Initial Assessment Updated by [id number]: Meghan Zepeda on 07/07/19 5:48 pm * Is the patient Alert and Oriented? Yes * How many steps to enter\exit or inside your home? * PCP [facility] * Pharmacy [facility] [place] * Preadmission Environment Home Alone * ADLs Independent * Equipment None * List name and contact numbers for known caregivers / representatives who currently or will assist patient after discharge: ALEXANDRE GARCIA [facility] - [phone] [facility] [phone] * Verbal permission to speak to the caregivers and representatives has been obtained from the patient. Yes * Community resources currently utilized None * Additional services required to return to the preadmission environment? No * Can the patient safely return to the preadmission environment? Yes * Has this patient been hospitalized within the prior 30 days at any hospital? No Last DP export: 07/07/19 4:55 p Patient Name: WILLIAMS GARCIA Page [id number] at 1902 All edits/amendments must be made on the electronic document DICTATION DATE: 07/13/191901 BRICK BURNER HEAD: CHRIS 07/13/191901 RPT#: [id number] DC DATE: STATUS: ADM IN [facility] [address] [place] [address] END OF REPORT
--- NOTE | 2019-07-13 21:00 | NUR ---
PT IS RESTING IN BED. PM MEDICATIONS GIVEN, SEE EMAR. PT DENIES NEEDS AT THIS TIME. NO SIGNS OF ACUTE DISTRESS. WILL CONTINUE TO MONITOR.
--- NOTE | 2019-07-13 23:00 | NUR ---
REASSESSMENT COMPLETED, SEE FLOWSHEET FOR DETAILS. PT IS LAYING IN BED WATCHING TV. PT REQUESTED HELP TO THE BATHROOM, HELP WAS PROVIDED, PT WAS UNABLE TO GO EVEN THOUGH SHE SAID IT FELT LIKE SHE WAS GOING TO GO ALL OVER THE BED. ASSISTED PT BACK TO BED AND ATTACHED HER BACK TO HER MONITOR. NO SIGNS OF ACUTE DISTRESS NOTED. NO FURTHER NEEDS NOTED. WILL CONTINUE TO MONITOR.
[2019-07-14] VITALS (18 sets, daily range): BP systolic 86–135; BP diastolic 33–86
--- NOTE | 2019-07-14 01:00 | NUR ---
PT IS LAYING IN BED WITH EYES CLOSED AT THIS TIME. NO NEEDS VOICED. NO SIGNS OF ACUTE DISTRESS. WILL CONTINUE TO MONITOR.
--- NOTE | 2019-07-14 03:00 | NUR ---
REASSESSMENT COMPLETED, SEE FLOWSHEET FOR DETAILS. PT IS LAYING IN BED WITH EYES CLOSED AT THIS TIME. NO NEEDS VOICED. NO SIGNS OF ACUTE DISTRESS. WILL CONTINUE TO MONITOR.
--- NOTE | 2019-07-14 05:00 | NUR ---
PT IS LAYING IN BED WITH EYES CLOSED AT THIS TIME. NO NEEDS VOICED. NO SIGNS OF ACUTE DISTRESS. WILL CONTINUE TO MONITOR.
--- NOTE | 2019-07-14 07:41 | NUR ---
0700 PT RECIEVED IN BED ALERT AND ORIENTED O2 4L L ARM PICC DRESSING CDI, SL, MIDSTERNAL AND SUBSTERNAL DRESSINGS CDI WITH SUBSTERNAL TPM WIRES, TPM VVI40 VMA 10, BLE HARVEST SITES CDI, ANNEALER 0730 ASSISTED TO BATHROOM, VOIDED AND ASSISTED BACK
--- NOTE | 2019-07-14 08:26 | NUR ---
08 DR JENNINGS IN UNIT FOR THORACENTESIS, CALLED ULTRASOUND WHO IS IN PROCEDURE IN OR BUT SAID ANOTHER TECH WOULD BE HERE ANY MINUTE, DR JENNINGS NOTIFIED, BY 08 DR JENNINGS STATED HE HAD TO GO TO OR AND LEFT UNIT, HIS NURSES TOMMY AND YANET HERE WITH ORDERS TO GET ULTRASOUND TO SEE HOW MUCH FLUID IS PRESENT
--- NOTE | 2019-07-14 08:52 | NUR ---
PT WENT TO XRAY FOR CXR AND OBTAINED ULTRASOUND WHILE THERE, PER TICKET TAKER 3000ML PRESENT, DR TRIPP NURSES PRESENT
--- NOTE | 2019-07-14 09:11 | NUR ---
THIS AM NOTED PT TO HAVE BUNDLE BRANCH BLOCK, NOTIFIED TOMMY TRIPP NURSE
--- NOTE | 2019-07-14 12:39 | NUR ---
Nutrition Follow-up: Pt continues to report poor appetite/PO intake. Diet: Cardiac ADA Wt: 179# Last BM: 07/13 Labs noted: Alb 1.5 Meds noted: KDur, Senokot, Colace Continue current diet as tolerated. [place] food preferences within diet restrictions. MD may consider appetite stimulant. RD following.
--- NOTE | 2019-07-14 13:00 | NUR ---
1100 SEEN BY PT, ATE HALF A SERVING OF MASHED POTATOES FOR LUNCH, REFUSES ALTERNATED 1300 REPORT GIVEN TO Tatiana HINES RN
--- NOTE | 2019-07-14 19:00 | NUR ---
REPORT RECEIVED, CARE ASSUMED. PT IS SITTING UP IN THE CHAIR AT THIS TIME EATING DINNER. PT STATES SHE IS READY TO GO BACK TO BED, ASSISTED PT BACK TO BED AND POSITIONED COMFORTABLY. PT DENIES FURTHER NEEDS AT THIS TIME. INITIAL ASSESSMENT COMPLETED, SEE FLOWSHEET FOR DETAILS. NO SIGNS OF ACUTE DISTRESS. WILL CONTINUE TO MONITOR.
--- NOTE | 2019-07-14 21:00 | NUR ---
PT IS LAYING IN BED WATCHING TV AT THIS TIME. NO CHANGES NOTED. NO NEEDS VOICED. NO SIGNS OF ACUTE DISTRESS. WILL CONTINUE TO MONITOR.
--- NOTE | 2019-07-14 23:00 | NUR ---
REASSESSMENT COMPLETED, SEE FLOWSHEET FOR DETAILS. NO CHANGES NOTED AT THIS TIME. PT DENIES NEEDS. NO SIGNS OF ACUTE DISTRESS. WILL CONTINUE TO MONITOR.
[2019-07-15] VITALS (25 sets, daily range): BP systolic 84–184; BP diastolic 32–86
--- NOTE | 2019-07-15 01:00 | NUR ---
PT IS RESTING IN BED WITH EYES CLOSED AT THIS TIME. NO NEEDS VOICED. NO SIGNS OF ACUTE DISTRESS. WILL CONTINUE TO MONITOR.
--- NOTE | 2019-07-15 03:00 | NUR ---
REASSESSMENT COMPLETED, SEE FLOWSHEET FOR DETAILS. PT REQUESTED ASSISTANCE TO THE BATHROOM, ASSISTANCE WAS PROVIDED. NO FURTHER NEEDS VOICED. NO SIGNS OF ACUTE DISTRESS. WILL CONTINUE TO MONITOR.
--- NOTE | 2019-07-15 05:00 | NUR ---
PT IS LAYING IN BED WITH EYES CLOSED AT THIS TIME. PT DENIES NEEDS. NO SIGNS OF ACUTE DISTRESS. WILL CONTINUE TO MONITOR.
[2019-07-15] MEDS ORDERED: ATROVENT 0.02%2.5 ML UPD (09:37)
[2019-07-15] MEDS ORDERED: BROVANA15 MCG/2 M INH (09:37)
[2019-07-15] MEDS ORDERED: CEFUROXIME250 MG PO (09:37)
[2019-07-15] MEDS ORDERED: Nicoderm [PBKC] TRANSDERM (09:38)
[2019-07-15] MEDS ORDERED: ACETAMINOPHEN500 M1 PO (09:38)
[2019-07-15] MEDS ORDERED: MAG-OX 400 MG400 MG PO (09:39)
[2019-07-15] MEDS ORDERED: PROTONIX40 MG PO (09:39)
[2019-07-15] MEDS ORDERED: PULMICORT0.5 MG/21 UPD (09:39)
[2019-07-15] MEDS ORDERED: MUCINEX DM ER1 EAC1 PO (09:39)
[2019-07-15] MEDS ORDERED: COLACE100 MG PO (09:39)
[2019-07-15] MEDS ORDERED: Senokot-S Tablet PO (09:40)
[2019-07-15] MEDS ORDERED: BETAPACE 80 MG80 MG PO (09:56)
--- NOTE | 2019-07-15 11:10 | OP ---
PATIENT NAME: WILLIAMS GARCIA MEDICAL RECORD: [id number] :[birth year] LOCATION:[id number] ADMISSION DATE:07/05/19 SURGEON: OJSÉ MIGUEL JENNINGS MD DATE OF OPERATION: 07/14/2019 SURGEON: José Miguel Jennings MD PREOPERATIVE DIAGNOSIS: Left ultrasound-guided thoracentesis. POSTOPERATIVE DIAGNOSIS: Left pleural effusion. DESCRIPTION OF PROCEDURE: With the patient seated upright in the cardiovascular intensive care with a heart rate, blood pressure, and pulse oximetry monitored. A window for aspiration in the left chest was obtained. The posterior chest was sterilely prepped and draped. A 1% Xylocaine was used for local anesthetic and the effusion was localized over the superior surface of the rib using a small needle. A 2 mm skin incision was made. Thoracentesis catheter was inserted. A total of 500 cc of serosanguineous fluid was removed without difficulty. There was no residual by ultrasound. No apparent complications. Chest x-ray pending. TRANSINT:[id number] Voice Confirmation ID: [id number] DOCUMENT ID: [id number] JOSÉ MIGUEL JENNINGS MD at 1110 CC: VIKRAM RILEY MD [id number] DICTATION DATE: 07/14/19 1505 BRIM BUSTER: 07/14/19 2150 ADM IN [place] [id number]
--- NOTE | 2019-07-15 13:30 | NUR ---
UP TO SIDE OF BED TO TRANSFER FOR CHAIR AFTER BATH. SYNCOPAL EPISODE LASTING APPROX 2 MIN NOTED. MAINTAINED GOOD RESP EFFORT. COMPLETE HEART BLOCK NOTED TO MONITOR WITH EPISODE. 1332: MONITOR SHOWS NSR NOW. AWAKE. STATED SHE FELT DIZZY BEFORE EPISODE. DR. JENNINGS'S NURSE HERE AT TIME OF EPISODE.
--- NOTE | 2019-07-15 15:02 | NUR ---
OT NOTE: PT COMPLETED BUE AROM AXS. THANK YOU, ENRIQUE MIDDLETON
--- NOTE | 2019-07-15 19:35 | NUR ---
REPORT REC'D AND CARE ASSUMED, REC'D PT AWAKE, ALERT, AND ORIENTED, O2 AT 5 LITERS VIA HIGH FLOW, MIDSTERNAL INCISION WITH DERMABOND OPEN TO AIR, INCISION WELL APPROXIMATED, RIGHT UPPER ARM PICC LINE DRSG CDI BOTH PORTS SALINE LOCKED, MAEE, RIGHT AND LEFT HARVEST SITES OPEN TO AIR, INCISIONS WELL APPROXIMATED, BILAT TEDS INTACT, PPP, PT DENIES NEEDS, RATING PAIN "3" ON 0-10 PAIN SCALE, REFUSES PAIN MEDICATION AT THIS TIME, BED IN LOW POSITION, CALL LIGHT IN REACH.
--- NOTE | 2019-07-15 20:30 | NUR ---
PT ASSISTED UP TO BATHROOM TO VOID, DENIES DIZZINESS UPON RISING, INSTRUCTED PT TO CALL FOR ASSISTANCE BEFORE RETURNING TO BED.
--- NOTE | 2019-07-15 20:40 | NUR ---
PT ASSISTED X 1 ASSIST BACK TO BED AND REPOSITIONED UP IN BED FOR COMFORT, PT TOLERATED WELL, EVENING MEDS GIVEN, PT DENIES FURTHER NEEDS, SR UP X 2, VISIBLE TO NURSES STATION.
--- NOTE | 2019-07-15 21:15 | NUR ---
RT AT BS DOING IS WITH YASH, PT PULLING 600 AT TIMES, O2 SAT 92% ON 5 LITERS HIGH FLOW, WILL CONTINUE TO MONITOR FOR CHANGES.
--- NOTE | 2019-07-15 23:15 | NUR ---
REASSESSMENT COMPLETED, PT RESTING IN BED EYES CLOSED, RESP EVEN AND UNLABORED, VSS, PT DENIES NEEDS, BS TABLE AND CALL LIGHT IN REACH
[2019-07-16] VITALS (26 sets, daily range): BP systolic 85–180; BP diastolic 32–72; Ht 170.2 cm; Wt 75.9 kg
--- NOTE | 2019-07-16 01:30 | NUR ---
PT RESTING IN BED EYES CLOSED, RESP EVEN AND UNLABORED, VSS, WILL CONT TO MONITOR FOR CHANGES.
--- NOTE | 2019-07-16 03:00 | NUR ---
REASSESSMENT COMPLETED, PT RESTING IN BED EYES CLOSED, RESP EVEN AND UNLABORED VSS. NO CHANGES FROM PREVIOUS ASSESSMENT.
--- NOTE | 2019-07-16 05:00 | NUR ---
NO CHANGES IN STATUS AT THIS TIME
--- NOTE | 2019-07-16 06:15 | NUR ---
PT ASSISTED UP TO BATHROOM VOIDED AND HAD MODERATE AMOUNT LOOSE BROWN STOOL, ASSISTED PT RECLINER, BS TABLE AND CALL LIGHT PLACED IN REACH, PT DENIES FURTHER NEEDS.
--- NOTE | 2019-07-16 14:33 | NUR ---
1334: 3 DEGREE HEART BLOCK NOTED TO MONITOR. ASSISTED WITH RESP WITH BAG VALVE MASK WITH 100% O2. HOB DOWN. CRASH CART TO ROOM. 1336: HR BACK TO SR RATE IN 70S. AROSES TO VERBAL STIMULI. EXTERNAL PACING PADS TO CHEST. 1337: DR. JENNINGS NOTIFIED OF EPISODE OF 3RD DEGREE HEART BLOCK. NEW ORDERS REC'D. 1349: DOPAMINE STARTED AT 3 MCG/KG/MIN. 1358: [employer] REP PAGED TO COORDINATE TIME FOR PACEMAKER PLACEMENT. 1430: CLINICAL DATA MANAGEMENT DIRECTOR NOTIFIED OF 0800 TIME FOR PACEMAKE PLACEMENT IN AM.
--- NOTE | 2019-07-16 16:43 | NUR ---
1400: O2 INCREASED TO 9 LPM TO KEEP SPO2 > 90. 1500: SPO2 80S. O2 INCREASED TO 11 LPM HIGH FLOW CANNULA 1545: SPO2 IN HIGH 70S AND 80S. O2 INCREASED TO 13 LPM. 1600: RESP THERAPY HERE. O2 INCREASE TO 15 LPM. MEDI NEB TREATMENT GIVEN. SPO2 INCREASED TO 92%. 1630: DR. HARRINGTON NOTIFIED OF NEED TO INCREASE TO O2 UP TO 15 LPM. NEW ORDERS REC'D.
--- NOTE | 2019-07-16 17:53 | NUR ---
1725: DR. HARRINGTON CALLED WITH ORDERS TO GIVE LASIX 40MG AND INCREASE DOPAMINE TO 5 MCG/KG/MIN IF OKAY WITH DR. JENNINGS. 1745: REVIEWED DR. PEREIRA ORDERS WITH DR. JENNINGS. ORDERS NOT OKAY WITH DR. JENNINGS. 1810: DR. HARRINGTON CALLED CHECKING TO SEE IF PATIENT ON ANTIBIOTICS. CONDITION UPDATE GIVEN INFORMED SHE IS ON CEFTIN. ALSO INFORMED OF CANCELING OF ORDERS BY DR. JENNINGS. NO NEW ORDERS GIVEN.
--- NOTE | 2019-07-16 19:00 | NUR ---
PT ASSESSMENT COMPLETED AT THIS TIME, NO CHANGES FROM NURSE REPORT, PT DENIES COMPLAINTS AT THIS TIME, WILL MONITOR FOR CHANGES
--- NOTE | 2019-07-16 21:00 | NUR ---
PT GIVEN PO MEDS AT THIS TIME, NO DISTRESS NOTED, WILL CONT. TO MONITOR
--- NOTE | 2019-07-16 23:00 | NUR ---
PT REASSESSMENT COMPLETED AT THIS TIME, NO CHANGES NOTED, VSS, WILL CONT TO MONITOR
[2019-07-17] VITALS (25 sets, daily range): BP systolic 81–152; BP diastolic 30–65
--- NOTE | 2019-07-17 01:00 | NUR ---
PT REASTING WITH EYES CLOSED, RESP EVEN NON LABORED, VSS AT THIS TIME
--- NOTE | 2019-07-17 03:00 | NUR ---
PT REASSESSMENT COMPLETED AT THIS TIME, NO CHANGES SEEN, VSS
--- NOTE | 2019-07-17 05:00 | NUR ---
PT RESTING WITH EYES CLOSED, NO CHANGES NOTED, VSS AT THIS TIME
[2019-07-17 06:44] LABS: HEMATOCRIT 32.7 % (36.0-48.0); HEMOGLOBIN 10.3 g/dL (12-16); MCH 30.5 pg (26.0-34.0); MCHC 31.5 g/dL (31.0-37.0); MCV 96.7 fL (80.0-100.0); RBC 3.38 10x6/uL (4.00-5.40); RDW 13.8 % (11.5-14.5)
--- NOTE | 2019-07-17 06:45 | NUR ---
O2 DECREASED FROM 15 LPM TO 9 LPM. SPO2 98%.
[2019-07-17 06:53] LABS: ANION GAP 10.6 mmol/L (8-16); CALCIUM 8.9 mg/dL (8.5-10.1); CARBON DIOXIDE 30.8 mmol/L (21.0-32.0); CREATININE - SERUM 1.1 mg/dL (0.6-1.3); POTASSIUM - SERUM 5.4 mmol/L (3.5-5.1)
[2019-07-17 06:54] LABS: APTT 27.4 SECONDS (22.8-39.4); INR 1.1 (0.85-1.17); PROTIME 13.7 SECONDS (11.6-15.0)
--- NOTE | 2019-07-17 07:15 | NUR ---
TO OR VIA BED.
--- NOTE | 2019-07-17 09:59 | NUR ---
0920: REC'D FROM OR VIA BED. CONNECTED TO MONITOR AND VS OBTAINED. O2 VIA SIMPLE MASK AT 15 LPM. 0930: FAMILY AT BEDSIDE. OXYGEN CHANGED TO HIGH FLOW CANNULA @ 15 LPM 1000: OX DECREASED TO 9 LPM.
--- NOTE | 2019-07-17 19:00 | NUR ---
PT ASSESSMENT COMPLETES AT THIS TIME, CHANGES NOTED FROM NURSE REPORT
--- NOTE | 2019-07-17 21:00 | NUR ---
PT TOOK PO MEDS WITHOUT PROBLEMS, PT DENIES COMPLAINTS AT THIS TIME, VSS, NO DESTRESS NOTED
--- NOTE | 2019-07-17 23:00 | NUR ---
PT REASSESSMENT WAS COMPLETED AT THIS TIME, NO CHANGES NOTED, VSS
[2019-07-18] VITALS (26 sets, daily range): BP systolic 78–140; BP diastolic 41–89
--- NOTE | 2019-07-18 01:00 | NUR ---
PT RESTING WITH EYES CLOSED, RESP EVEN, VSS, NO CHANGES NOTED IN PT COND.
--- NOTE | 2019-07-18 03:00 | NUR ---
PT REASSESSMENT COMPLETED AT THIS TIME, NO CHANGES NOTED, VSS
--- NOTE | 2019-07-18 04:35 | NUR ---
PT TAKEN TO XRAY FOR 2V CXR, PT ANNALISA WELL, MINIMAL HELP GETTING UP AND DOWN
--- NOTE | 2019-07-18 07:00 | NUR ---
RECEIVED REPORT FROM NIGHT NURSE. PT SITTING UP IN CHAIR AWAKE ALERT AND ORIENTED. O2 9L HFNC. HR PACED AT 80 BPM. VSS. WILL CONTINUE TO MONITOR
--- NOTE | 2019-07-18 09:05 | NUR ---
PHYSICAL THERAPY AMBULATED PATIENT DOWN LOCK AND BACK. NO COMPLICATIONS. SITTING UP IN CHAIR C VSS
--- NOTE | 2019-07-18 09:24 | NUR ---
OT NOTE: PT UP IN CHAIR. MIN ASSIST FOR UE DRESSING; MOD ASSIST TO LILLIAN SOCKS. STANDING BALANCE FAIR ( REPORTING THAT HER FEET ARE SORE). ABLE TO AMB TO BATHROOM AND IN ROOM WITH MIN ASSIST AND USE OF GAIT BELT AND 02 AT 7L. NO REPORTS OF DIZZINESS. SATS DROPPED TO 84% AFTER AMBULATION INTO HALLWAY APPROX 75 FT. QUICKLY RETURNED TO 94% AFTER RETURNING TO CHAIR. RECOMMEND IP REHAB WHEN MEDICALLY STABLE. RISHI HELMS, OTR/L
--- NOTE | 2019-07-18 09:53 | OP ---
PATIENT NAME: WILLIAMS GARCIA MEDICAL RECORD: [id number] :40 LOCATION:[facility] D.CV04 ADMISSION DATE:07/05/19 SURGEON: JOSÉ MIGUEL JENNINGS MD DATE OF OPERATION: 07/17/2019 SURGEON: José Miguel Jennings MD ORGAN PIPE VOICER: Jonathon Carter. OPERATION PERFORMED: Insertion of dual-chamber pacemaker with atrial and ventricular leads. PREOPERATIVE DIAGNOSES: Sick sinus syndrome with intermittent and complete heart block and syncope. POSTOPERATIVE DIAGNOSES: Sick sinus syndrome with intermittent and complete heart block and syncope. ANESTHESIA: Intravenous sedation. COMPLICATIONS: None. SPECIMENS: None. CONDITION: Stable. BLOOD LOSS: Minimal. DISPOSITION: CV ICU. OPERATIVE FINDINGS: Good atrial and ventricular pacing and sensing thresholds. OPERATIVE PROCEDURE IN DETAIL: The patient was brought to the operating suite, monitored anesthesia was cared, and the patient's chest was sterilely prepped and draped. A 1% Xylocaine was used for local anesthetic and a pocket was made in the left anterior chest. Subclavian vein was cannulated twice. Guidewires were passed under fluoroscopic control. Introducers and peel-away sheath were inserted carefully and the leads were inserted. The ventricular lead was first placed 2 separate occasions on the inferior wall of the heart without good sensing or pacing thresholds there, it was moved up onto the septum with good sensing and pacing thresholds and was sutured into place using a suture sleeve. The J-wire was used to place the atrial lead, screwed in, and good pacing and sensing thresholds. The suture sleeve again used to secure the leads. The leads were connected to the generator. Good pacing and sensing thresholds were noted. No pacing at 10 volts and the pocket was irrigated with vancomycin irrigation. The pacemaker carefully placed in the pocket and lead carefully coiled below that. The pacemaker generator sutured in place. Hemostasis ensured. The wound was closed in 2 layers and then Dermabond on the skin. The patient was stable to the CV ICU. TRANSINT:[id number] Voice Confirmation ID: [id number] DOCUMENT ID: [id number] OPERATIVE REPORT [id number] WILLIAMS GARCIA JOSÉ MIGUEL JENNINGS MD at 0953 CC: IGNACIO PERKINS M.D. [id number] DICTATION DATE: 07/17/19 0942 SURFACE SHIP USW SUPERVISOR: 07/17/19 0956 ADM IN [facility] [address] [id number]
--- NOTE | 2019-07-18 11:00 | NUR ---
PT BP CONSISTENTLY 80'S/40'S. NOTIFIED DR. TRIPP NURSE. PATIENT ASYMPTOMATIC. WILL CONTINUE TO MONITOR
--- NOTE | 2019-07-18 11:49 | NUR ---
NO ORDERS OBTAINED FOR HYPOTENSION FROM DR. JENNINGS'S NURSE.
--- NOTE | 2019-07-18 19:32 | NUR ---
SHIFT ASSESSMENT COMPLETE. O2 INCREASED TO 7L/MIN VIA HIGH FLOW O2 CANNULA D/T SPO2 DECREASING INTO UPPER 80'S. WILL CONTINUE TO MONITOR.
--- NOTE | 2019-07-18 20:30 | NUR ---
PATIENT IS SLEEP IN BED AND SPO2 DECREASES TO 79% WENT IN ROOM AND HAD PATIENT TO TAKE DEEP BREATH AND COUGH SPO2 INCREASED TO 91% AT THIS TIME.
--- NOTE | 2019-07-18 20:48 | NUR ---
PT WITH SPO2 77-80% ON 7 LPM O2. RT TX DONE ABOUT AN HOUR PREVIOUS. RN HAD PT PERFORM IS/DEEP BREATHE. INC O2 TO 9 LPM SPO2 INC TO 92%.
--- NOTE | 2019-07-18 22:00 | NUR ---
PATIENT SLEEPING WITH NO DISTRESS NOTED SPO2 95% AT THIS TIME. WILL CONTINUE TO MONITOR. CALL LIGHT WITHIN REACH, BED IN LOW POSITION.
--- NOTE | 2019-07-18 23:15 | NUR ---
REASSESSMENT COMPLETE NO CHANGES AT THIS TIME.
[2019-07-19] VITALS (21 sets, daily range): BP systolic 90–137; BP diastolic 40–59
--- NOTE | 2019-07-19 01:30 | NUR ---
PAITENT SLEEPING NO DISTRESS NOTED. CALL LIGHT WITHIN REACH, BED IN LOW POSITION.
--- NOTE | 2019-07-19 03:00 | NUR ---
PATIENT UP TO BATHROOM WITH MINIMAL ASSIST. VOIDED AND BACK TO BED. CALL LIGHT WITHIN REACH, BED IN LOW POSITION.
--- NOTE | 2019-07-19 06:25 | NUR ---
PATIENT UP TO CHAIR DECLINES BATH AT THIS TIME. CALL LIGHT WITHIN REACH. . PATIENT IS GRUMPY ABOUT HAVING TO GET UP OUT OF BED.
--- NOTE | 2019-07-19 07:00 | NUR ---
RECEIVED REPORT. PT UP IN CHAIR AWAKE ALERT AND ORIENTED. VSS. SEE ASSESSMENT
--- NOTE | 2019-07-19 11:23 | NUR ---
Rehab Note- Have spoken with JUAN Christianson concerning the patient & her increased requirements of oxygen of 9L/NC, unable to admit to acute inpatient rehab with O2 requirements at this increased amount. Would like the patient to be stable on 4-6L/NC x 24hrs prior to acute inpatient rehab admit. Will continue to follow at this time. Thank you for this referral! Bre Bueno RN Clinical Liaison, [facility] Rehab
--- NOTE | 2019-07-19 13:48 | NUR ---
Nutrition Follow-up: CABG 07/05/19. Pt was to discharge to rehav but had SOB and is still requiring high FiO2 and remains in CVICU currently. Diet: Cardiac PO intake: ~30% average x 9 meals. Reports that she does not like the food here. She refuses supplements. Last BM 07/18/19. Wt: 168# (07/19/19); Admit wt: 167# (07/05/19) Labs, meds, and skin assessment reviewed. Continue current diet. Consider appetite stimulant. May consider ProCalamine? RD Following.
--- NOTE | 2019-07-19 14:41 | NUR ---
OT NOTE: PT UP IN CHAIR; VERY ANXIOUS TO GO HOME. DR EXPLAINED THAT SHE IS STILL ON LARGE AMOUNT OF 02 AND WILL NEED TO IMPROVE WITH THIS BEFORE GOING HOME. PT AMBULATED APPROX 500 FT WITH 6L 02. SLIGHT UNSTEADINESS OF GAIT BUT SHE IS NOT USING AD. ABLE TO PERFORM TOILETING WITH MIN ASSIST. UPON RETURN FROM WALK, PT 02 SATS DOWN TO APPROX 73%. RESP THERAPIST IN ROOM AT THIS TIME. RISHI HELMS, OTR/L
--- NOTE | 2019-07-19 19:30 | NUR ---
PT AOX4, VSS, NO C/O PAIN. SHALLOW RESPIRATIONS, LUNG SOUNDS CLEAR/DIMINISHED, 5L O2 VIA NC, SPO2 93. S1S2 HEARD, PERIPHERAL PULSES PRESENT. PPM TO LT UPPER CHEST, DRSG CDI. BOWEL SOUNDS ACTIVE IN ALL QUADRNATS. CHEST INCISIONS OPEN TO AIR, APPROXIMATED. RT LEG HARVEST SITES WITH DRSGS CDI. PT UP FROM CHAIR TO BED WITH STEADY GAIT, PARTIAL LINEN CHANGE PROVIDED. PT DENIES FURTHER NEEDS AT THIS TIME. CALL LIGHT AND BEDSIDE TABLE WITHIN PT REACH. CPOC.
--- NOTE | 2019-07-19 21:36 | NUR ---
HS MEDS GIVEN WITHOUT DIFFICULTY, FRESH WATER PROVIDED. PARTIAL LINEN CHANGE PROVIDED. CALL LIGHT AND BEDSIDE TABLE WITHIN PT REACH. CPOC.
--- NOTE | 2019-07-19 22:00 | NUR ---
NO VISITORS DURING VISITATION
--- NOTE | 2019-07-19 23:00 | NUR ---
REASSESSMENT COMPLETE, NO NEW CHANGES AT THIS TIME. PT REPOSITIONED SELF INDEPENDENTLY. VSS, NO C/O PAIN. DENIES NEEDS. CALL LIGHT AND BEDSIDE TABLE WITHIN PT REACH. CPOC.
[2019-07-20] VITALS: BP 92/44
[2019-07-20 03:00] VITALS: BP 126/50
--- NOTE | 2019-07-20 03:36 | NUR ---
REASSESSMENT COMPLETE, SEE FLOWSHEET. NO CHANGES AT THIS TIME. PT RESTING QUIETLY WITH VSS AND NO C/O PAIN. REPOSITIONS SELF INDEPENDENTLY. CALL LIGHT AND BEDSIDE TABLE WITHIN PT REACH. CPOC.
--- NOTE | 2019-07-20 06:00 | NUR ---
CHG BATH AND COMPLETE LINEN CHANGE PROVIDED. UP TO CHAIR WITH NO DIFFICULTY. VSS, NO C/O PAIN. CALL LIGHT WITHIN PT REACH. CPOC.
--- NOTE | 2019-07-20 07:00 | NUR ---
UP IN CHAIR, ALERT AND ORIENTED, DENIES PAIN OR NEEDS AT THIS TIME
--- NOTE | 2019-07-20 07:45 | NUR ---
BREAKFAST TRAYN TO BEDSIDE, INDEPENDENT WITH SET UP AND EATING
--- NOTE | 2019-07-20 09:10 | NUR ---
AMBULATED WITH PT 500 FT, O2 POST WALKING SAT 92%
--- NOTE | 2019-07-20 09:21 | NUR ---
PER TOMMY WITH DR JENNINGS, PATIENT WILL BE OK TO GO TO REHABB, ON 5L OXY ALL NIGHT AND TOLERATED, WHE WILL SPEAK WITH CASE MGNT TO EXPEDITE
--- NOTE | 2019-07-20 13:16 | NUR ---
DR. JENNINGS MADE ROUNDS AND SPOKE WITH PATIENT. PLANNING TO GO TO REHAB TODAY
--- NOTE | 2019-07-20 13:48 | NUR ---
ORDER RECEIVED FOR PICC LINE REMOVAL DUE TO DISCHARGE. LENGTH OF LINE VERTIFIED ACCORDING TO VASCULAR ACCESS INSERTION NOTES. LENGTH IS 43 CM AND IN RIGHT UPPER ARM. PROCEDURE EXPLAINED TO PT. PT IS IN RECLINER AND PLACED BACK IN RECLINING POSITION. RIGHT ARM EXTENDED OUT TO 45 DEGREES. HANDS WASHED AND GLOVES DONNED. DRESSING AND SAFETY GUARD REMOVED. NO SIGNS OF INFECTION,EDEMA NOR BLEEDING NOTED. SITE CLEANED WITH CHLOROPREP. PT INSTRUCTED TO TAKE A DEEP BREATHE AND BEAR DOWN. CATHETER GENTLY WITHDRAWN AT 1 INCH INCREMENTS PARALLEL TO THE SKIN. CATHETER IS REMOVED SUCCESSFULLY AT 43 CMS WITH TIP INTACT. NO SHEARING, NO SIGNS OF INFECTION ON TIP. PRESSURE HELD FOR 5 MINS. GLOVES CHANGED. CLEAN DRESSING OF 2X2 AND TEGADERM APPLIED. PT INSTRUCTED ON SIGNS OF INFECTION AND KEEPING DRESSING CLEAN AND DRY. PT UNDERSTANDS. PT TOLERATED PROCEDURE WELL. .
--- NOTE | 2019-07-20 15:14 | MORECARE ---
CASE MANAGEMENT DISCHARGE SUMMARY PATIENT: WILLIAMS GARCIA UNIT: [id number] ADM DATE: 07/05/19 AGE: 78 : 40 SEX: F ROOM/BED: D[facility] AUTHOR: GABBI,NII PHYSICIAN: REFERRING PHYSICIAN: GEREMIAS JENNINGS MD DATE OF SERVICE: 07/20/19 Discharge Plan Patient Name: WILLIAMS GARCIA Facility: [facility]:[place] : 1940 Planned Disposition: Inpatient Rehab Anticipated Discharge Date: Discharge Date: Expected LOS: Initial Reviewer: [email or web address] Initial Review Date: 07/07/2019 Generated: 07/20/19 4:13 pm Comments DCP- Discharge Planning Updated by [id number]: Meghan Zepeda on 07/20/19 2:[address] CM spoke with Bre with Rehab they are planning on accepting patient today since patient has been on 02 @ 5L for the past 24hrs. CM will continue follow and assist as needed with discharge planning / needs. DCP- Discharge Planning Updated by [id number]: Meghan Zepeda on 07/13/19 6:[address] Inpatient rehab evaluation today. Inpatient rehab will accept patient once medically stable for discharge. CM will continue to follow and assist as needed with discharge planning / needs. DCP- Discharge Planning Updated by [email or web address]: Meghan Zepeda on 07/07/19 4:[address] Patient Name: WILLIAMS GARCIA Admission Status: Elective Accout number: [id number] Admission Date: 07-05-2019 : 1940 Admission Diagnosis:OCCLUSION AND STENOSIS OF UNSPECIFIED CAROTID ARTERY Attending: GEREMIAS JENNINGS Current LOS: 2 Anticipated DC Date: Planned Disposition: Home Primary Insurance: MEDICARE A & B Discharge Planning Comments: CM met with patient to complete initial dc planning assessment. CM educated patient on the CM role and verbal consent given by patient to complete assessment. Patient lives at home alone where she is independent with her care. At discharge patient plans to return home and feels this is a safe discharge. CM discussed availability of home health, rehab services, and medical equipment. Family will drive her home. Patient denied known discharge needs at this time. Patient may need walk test if 02 still needed at discharge. CM will continue to follow and will assist as needed with dc plans/needs. Monument Letterer: Meghan Zepeda DCP- Discharge Planning Updated by [email or web address] Zepeda on 07/06/19 6:[address] CM attempted to visit with patient regarding discharge planning/ needs. Patient requested CM to come back at a later time. CM will continue to follow and assist as needed with discharge planning / needs DCPIA - Discharge Planning Initial Assessment Updated by [id number]: Meghan Zepeda on 07/07/19 5:48 pm * Is the patient Alert and Oriented? Yes * How many steps to enter\exit or inside your home? * PCP LOZANO * Pharmacy [facility] * Preadmission Environment Home Alone * ADLs Independent * Equipment None * List name and contact numbers for known caregivers / representatives who currently or will assist patient after discharge: ALEXANDRE GARCIA [facility] - [phone] [facility] [phone] * Verbal permission to speak to the caregivers and representatives has been obtained from the patient. Yes * Community resources currently utilized None * Additional services required to return to the preadmission environment? No * Can the patient safely return to the preadmission environment? Yes * Has this patient been hospitalized within the prior 30 days at any hospital? No Coverage Notice Reviewer: [id number] - Meghan Zepeda Notice Issued Date-Time: 07/18/2019 17:00 Notice Type: IM Discharge Notice Notice Delivered To: Patient Relationship to Patient: Self Sanitation Lead Name: Delivery Method: HAND - Hand Delivered Lida Days: Prior Verbal Notification: Recipient Understood Notice: Yes Recipient Signature: Yes Med Rec Note Co-signed by Attending: Coverage Notice Comment: Last DP export: 07/13/19 6:03 p Patient Name: WILLIAMS GARCIA Page 43666 at 1514 All edits/amendments must be made on the electronic document DICTATION DATE: 07/20/191512 PLATE GLASS INSTALLER HELPER: CHRIS 07/20/191512 RPT#: [id number] DC DATE: STATUS[facility] [address] [place] [address] END OF REPORT
--- NOTE | 2019-07-20 16:03 | NUR ---
CALLED REPORT TO REHAB. DISCHARGE INSTRUCTIONS HAVE BEEN GIVEN TO PATIENT AND SIGNED. WHEELING DOWN VIA WHEEL CHAIR
--- NOTE | 2019-07-20 16:42 | NUR ---
OT NOTE: AMB IN ROOM WITH PROGRESSIVE CARE MANAGER AND FAIR BALANCE. GROOMING AND TOILETING IWTH CGA; BED MOB WITH MIN ASSIST. RISHI HELMS, OTR/L
--- NOTE | 2019-07-22 17:58 | MORECARE ---
CASE MANAGEMENT DISCHARGE SUMMARY PATIENT: WILLIAMS GARCIA UNIT: [id number] ADM DATE: 07/05/19 AGE: 78 : 40 SEX: F ROOM/BED: D[facility] AUTHOR: NII SEO PHYSICIAN: REFERRING PHYSICIAN: GEREMIAS JENNINGS MD DATE OF SERVICE: 07/22/19 Discharge Plan Patient Name: WILLIAMS GARCIA Facility: [facility]:[place] : 1940 Planned Disposition: Inpatient Rehab Anticipated Discharge Date: Discharge Date: 07/20/2019 Expected LOS: Initial Reviewer: [email or web address] Initial Review Date: 07/07/2019 Generated: 07/22/19 6:57 pm Comments DCP- Discharge Planning Updated by [id number]: Meghan Zepeda on 07/20/19 2:[address] CM spoke with Bre with Rehab they are planning on accepting patient today since patient has been on 02 @ 5L for the past 24hrs. CM will continue follow and assist as needed with discharge planning / needs. DCP- Discharge Planning Updated by [id number]: Meghan Zepeda on 07/13/19 6:[address] Inpatient rehab evaluation today. Inpatient rehab will accept patient once medically stable for discharge. CM will continue to follow and assist as needed with discharge planning / needs. DCP- Discharge Planning Updated by [id number]: Meghan Zepeda on 07/07/19 4:[address] Patient Name: WILLIAMS GARCIA Admission Status: Elective Accout number: [id number] Admission Date: 07-05-2019 : 1940 Admission Diagnosis:OCCLUSION AND STENOSIS OF UNSPECIFIED CAROTID ARTERY Attending: GEREMIAS JENNINGS Current LOS: 2 Anticipated DC Date: Planned Disposition: Home Primary Insurance: MEDICARE A & B Discharge Planning Comments: CM met with patient to complete initial dc planning assessment. CM educated patient on the CM role and verbal consent given by patient to complete assessment. Patient lives at home alone where she is independent with her care. At discharge patient plans to return home and feels this is a safe discharge. CM discussed availability of home health, rehab services, and medical equipment. Family will drive her home. Patient denied known discharge needs at this time. Patient may need walk test if 02 still needed at discharge. CM will continue to follow and will assist as needed with dc plans/needs. Music Engraver: Meghan Zepeda DCP- Discharge Planning Updated by [id number] Zepeda on 07/06/19 6:[address] CM attempted to visit with patient regarding discharge planning/ needs. Patient requested CM to come back at a later time. CM will continue to follow and assist as needed with discharge planning / needs DCPIA - Discharge Planning Initial Assessment Updated by LILLI: Meghan Zepeda on 07/07/19 5:48 pm * Is the patient Alert and Oriented? Yes * How many steps to enter\exit or inside your home? * PCP MARTA * [place] [facility] * Preadmission Environment Home Alone * ADLs Independent * Equipment None * List name and contact numbers for known caregivers / representatives who currently or will assist patient after discharge: ALEXANDRE GARCIA [facility] - [phone] [facility] [phone] * Verbal permission to speak to the caregivers and representatives has been obtained from the patient. Yes * Community resources currently utilized None * Additional services required to return to the preadmission environment? No * Can the patient safely return to the preadmission environment? Yes * Has this patient been hospitalized within the prior 30 days at any hospital? No Coverage Notice Reviewer: [id number] Anastasiia Zepeda Notice Issued Date-Time: 07/18/2019 17:00 Notice Type: IM Discharge Notice Notice Delivered To: Patient Relationship to Patient: Self Plasma Processor Name: Delivery Method: HAND - Hand Delivered Lida Days: Prior Verbal Notification: Recipient Understood Notice: Yes Recipient Signature: Yes Med Rec Note Co-signed by Attending: Coverage Notice Comment: Last DP export: 07/20/19 2:13 p Patient Name: WILLIAMS GARCIA Page 60580 at 1309 All edits/amendments must be made on the electronic document DICTATION DATE: 07/22/191756 CHIP LOFT WORKER: CHRIS 07/22/191756 RPT#: [id number] DC DATE:07/20/19 STATUS: DIS IN [facility] [address] [facility] [place] [address] END OF REPORT
== END 2019-07-20 16:53 | DRG 235 ==
LOC: D.SDCHOLD 07-01 12:30 → D.CVICU 07-05 05:00 → D.SDCHOLD 07-05 07:30 → D.CVICU 07-05 13:11
PROVIDERS: Anesthesiology; Internal Medicine Cardiovascular Disease; Internal Medicine Pulmonary Disease; ADMIT Thoracic Surgery (Cardiothoracic Vascular Surgery); ATTEND Thoracic Surgery (Cardiothoracic Vascular Surgery)
PROC: 021109W Bypass Coronary Artery, Two Arteries from Aorta with Autologous Venous Tissue, Open Approach (ICD-10-PCS; 2019-07-05)
PROC: 06BP4ZZ Excision of Right Saphenous Vein, Percutaneous Endoscopic Approach (ICD-10-PCS; 2019-07-05)
PROC: 02H63JZ Insertion of Pacemaker Lead into Right Atrium, Percutaneous Approach (ICD-10-PCS; 2019-07-05)
PROC: 5A1221Z Performance of Cardiac Output, Continuous (ICD-10-PCS; 2019-07-05)
PROC: B24BZZ4 Ultrasonography of Heart with Aorta, Transesophageal (ICD-10-PCS; 2019-07-05)
PROC: 0JH606Z Insertion of Pacemaker, Dual Chamber into Chest Subcutaneous Tissue and Fascia, Open Approach (ICD-10-PCS; 2019-07-05)
PROC: 02HK3JZ Insertion of Pacemaker Lead into Right Ventricle, Percutaneous Approach (ICD-10-PCS; 2019-07-05)
PROC: 02100Z9 Bypass Coronary Artery, One Artery from Left Internal Mammary, Open Approach (ICD-10-PCS; principal; 2019-07-05 07:30)
PROC: 0W9B3ZZ Drainage of Left Pleural Cavity, Percutaneous Approach (ICD-10-PCS; 2019-07-14)
DX: I25.10 Atherosclerotic heart disease of native coronary artery without angina pectoris (principal); J95.821 Acute postprocedural respiratory failure; I50.23 Acute on chronic systolic (congestive) heart failure; J15.6 Pneumonia due to other Gram-negative bacteria; D62 Acute posthemorrhagic anemia; E87.0 Hyperosmolality and hypernatremia; J44.1 Chronic obstructive pulmonary disease with (acute) exacerbation; J98.11 Atelectasis; F17.203 Nicotine dependence unspecified, with withdrawal; I65.29 Occlusion and stenosis of unspecified carotid artery; E83.39 Other disorders of phosphorus metabolism; E78.5 Hyperlipidemia, unspecified; I11.0 Hypertensive heart disease with heart failure; E03.9 Hypothyroidism, unspecified; M19.90 Unspecified osteoarthritis, unspecified site; R53.81 Other malaise

== ENCOUNTER 2019-07-20 15:54 | Inpatient (IN) | payer MEDICARE, BC ==
[~2019-07-20] VITALS: Ht 170.2 cm; Wt 75.8 kg
[~2019-07-20 15:54] MED LIST changes: +ACETAMINOPHEN500 M1 PO; +ATROVENT 0.02%2.5 ML UPD; +BETAPACE 80 MG80 MG PO; +BROVANA15 MCG/2 M INH; +CEFUROXIME250 MG PO; +COLACE100 MG PO; +MAG-OX 400 MG400 MG PO; +MUCINEX DM ER1 EAC1 PO; +Nicoderm [PBKC] TRANSDERM; +PROTONIX40 MG PO; +PULMICORT0.5 MG/21 UPD; +Senokot-S Tablet PO
--- NOTE | 2019-07-20 17:41 | NUR ---
OT NOTE: PT COMPLETED SIT TO STAND WITH SBA/CGA. PT COMPLETED ADL MOB WITH SBA/CGA. PT COMPLETED RUE AROM AX. PT COMPLETED HYGIENE TASK WITH SETUP IN CHAIR. THANK YOU, ENRIQUE MIDDLETON
--- NOTE | 2019-07-20 19:11 | NUR ---
GREETED PATIENT AND INTRODUCED MYSELF HER NURSE. PATIENT IS LAYING IN BED IN SUPINE POSITION WATCHING TV. O2 AT 3L VIA NC. RESPIRATIONS EVEN. NO S/S OF DISTRESS. DENIES ANY PAIN AT THIS TIME. CALL LIGHT IN REACH.
[2019-07-20 20:45] VITALS: BP 135/52
[2019-07-20 21:17] VITALS: BP 135/52; BMI 26.2
--- NOTE | 2019-07-20 21:41 | NUR ---
ASSISTED PATIENT TO BATHROOM AND BACK TO BED AND REPOSITIONED FOR COMFORT. CALL LIGHT IN REACH. DENIES ANY FURTHER NEEDS AT THIS TIME.
[2019-07-21 07:32] VITALS: BP 161/67
[2019-07-21 07:45] LABS: BASOPHILS 0.4 % (0-2); EOSINOPHILS 1.8 % (0-7); HEMOGLOBIN 10.7 g/dL (12-16); IMMATURE GRANULOCYTES 0.4 % (0-5); LYMPHOCYTES 21.2 % (15-50); MCH 30.7 pg (26.0-34.0); MCHC 31.5 g/dL (31.0-37.0); MCV 97.7 fL (80.0-100.0); MEAN PLATELET VOLUME 9.8 fL (7.4-10.4); MONOCYTES 13.8 % (2-11); NEUTROPHILS 62.4 % (40-80); PLATELET COUNT 333 10x3/uL (130-400); RBC 3.48 10x6/uL (4.00-5.40); WBC 6.8 10x3/uL (4.8-10.8)
[2019-07-21 07:58] LABS: ANION GAP 9.6 mmol/L (8-16); CALCIUM 8.7 mg/dL (8.5-10.1); POTASSIUM - SERUM 4.6 mmol/L (3.5-5.1)
--- NOTE | 2019-07-21 08:31 | NUR ---
PATIENT SITTING UP ON THE SIDE OF THE BED TO EAT BREAKFAST. ALERT/ORIENT. CALL LIGHT WITHIN REACH. VOICES NO NEEDS AT THIS TIME. WILL CONTINUE WITH PLAN OF CARE
--- NOTE | 2019-07-21 10:00 | NUR ---
PATIENT IN REHAB ROOM. WORKING WITH PHYSICAL THERAPIST. DENIES ANY PAIN/DISC AT THIS TIME.
--- NOTE | 2019-07-21 10:55 | NUR ---
PATIENT ADMITTED TO REHAB FROM ACUTE FLOOR. DR. LOZANO IS HER PCP. SHE HAS NO DME AT HOME. DISCHARGE PLANS ARE FOR HER TO RETURN TO HER HOME. WILL CONTINUE TO FOLLOW WITH PATIENT.
[2019-07-21 11:51] VITALS: Ht 170.2 cm; Wt 75.8 kg
--- NOTE | 2019-07-21 16:19 | NUR ---
PATIENT HELPED INTO BATHROOM. MOD ASST OUT OF BED. PATIENT IS A STAND BY ASST WITH WHEELED WALKER. NEEDED HELP IN BATHROOM. PULLING UP AND DOWN PANTS
--- NOTE | 2019-07-21 19:52 | NUR ---
GREETED PATIENT AND INTRODUCED MYSELF HER NURSE. PATIENT IS LAYING IN BED VISITING WITH FAMILY MEMBER AT BEDSIDE. RESPIRATIONS EVEN. NO S/S OF DISTRESS. DENIES ANY EVIDENCE OF PAIN AT THIS TIME. CALL LIGHT IN REACH.
[2019-07-21 21:11] VITALS: BP 157/63
--- NOTE | 2019-07-22 00:41 | NUR ---
PT. RESTING QUIETLY WITH EYES CLOSED. O2 AT 5L IN USE VIA NC. RESPIRATIONS EVEN. NO S/S OF DISTRESS. CALL LIGHT IN REACH.
[2019-07-22 07:47] LABS: BASOPHILS 0.3 % (0-2); EOSINOPHILS 1.7 % (0-7); HEMATOCRIT 32.7 % (36.0-48.0); IMMATURE GRANULOCYTES 0.2 % (0-5); LYMPHOCYTES 22.8 % (15-50); MCH 29.7 pg (26.0-34.0); MCHC 30.6 g/dL (31.0-37.0); MEAN PLATELET VOLUME 9.4 fL (7.4-10.4); MONOCYTES 13.2 % (2-11); NEUTROPHILS 61.8 % (40-80); PLATELET COUNT 272 10x3/uL (130-400); RBC 3.37 10x6/uL (4.00-5.40); WBC 5.9 10x3/uL (4.8-10.8)
[2019-07-22 07:54] LABS: ANION GAP 6.8 mmol/L (8-16); CALCIUM 8.6 mg/dL (8.5-10.1); CREATININE - SERUM 0.9 mg/dL (0.6-1.3); POTASSIUM - SERUM 4.8 mmol/L (3.5-5.1)
[2019-07-22 08:55] VITALS: BP 142/58
--- NOTE | 2019-07-22 10:17 | NUR ---
RESTING QUIETLY IN BED. LUE IN SLING. STERNAL INCISION INTACT WITH NO S/S INFECTION. OXYGEN IN PLACE. CALL LIGHT IN REACH
--- NOTE | 2019-07-22 19:30 | NUR ---
PT IS RESTING IN BED VISITING WITH HER . ALERT AND ORIENTED X 3. DENIES ANY PAIN OR DISCOMFORT AT THIS TIME. NO NEEDS VOICED. PT STATES SHE ONLY DOES NOT LIKE THE FACT THAT SHE FEELS SHE NEEDS TO BEG FOR HELP, BECAUSE WE MAKE HER CALL FOR ASSISTANCE. I EXPLAINED THAT THIS WAS FOR SAFETY REASONS, AND SHE VOICED UNDERSTANDING OF THIS . LEFT ARM IS IN A SLING TO PROTECT NEW PACEMAKER. O2 IS ON @ 5LPM PER NC. NO SOB NOTED. CABG INCISIONS ARE ALL HEALING WELL. NO DRAINAGE NOTED. SR'S ARE UP X 2 IN BED. CALL LIGHT AND BEDSIDE TABLE ARE WITHIN EASY REACH.
[2019-07-22 22:00] VITALS: BP 134/52
--- NOTE | 2019-07-22 22:25 | NUR ---
PT IS RESTING QUIETLY IN BED WITH EYES CLOSED. RESPS ARE EVEN AND UNLABORED. NO ACUTE DISTRESS NOTED.
--- NOTE | 2019-07-23 02:58 | NUR ---
I have reviewed this patient and I concur with the Shift Assessment completed by the Licensed Practical Nurse today this shift.
--- NOTE | 2019-07-23 04:39 | NUR ---
RESTING IN BED WITH EYES CLOSED.
[2019-07-23 08:00] VITALS: BP 105/63
--- NOTE | 2019-07-23 11:55 | NUR ---
RESTING QUIETLY IN BED WATCHING TV. STILL HAS LUE IN SLING. REMAINS ON STERNAL PRECAUTIONS. CALL LIGHT IN REACH
--- NOTE | 2019-07-23 19:20 | NUR ---
PT IS RESTING IN BED WITH EYES OPEN. ALERT AND ORIENTED X 3. PT DENIES ACUTE PAIN OR DISCOMFORT AT THIS TIME. O2 SAT NOTED TO BE 84% ON 02 @ 2LPM PER NC. O2 UP TO 4LPM BEFORE SAT GOT UP TO 93%. PT IS NOT SOB. INCISIONS TO CHEST AND LEGS ARE CDI. NO DRAINAGE NOTED. LEFT ARM IS IN A SLING TO PROTECT NEWLY PLACED PACEMAKER. SR'S ARE UP X 2 IN BED. CALL LIGHT AND BEDSIDE TABLE ARE WITHIN EASY REACH.
[2019-07-23 21:03] VITALS: BP 115/49
--- NOTE | 2019-07-23 21:29 | NUR ---
PT IS RESTING IN BED WITH EYES CLOSED. RESPS ARE EVEN AND UNLABORED. NO ACUTE DISTRESS NOTED.
--- NOTE | 2019-07-23 23:30 | NUR ---
QUIET HOURS. PT LYING IN BED HOB 30 DEGREES EYES CLOSED RESTING QUIETLY. CONTINUES ON 5L O2 VIA HF NC. NO SIGNS OF DISTRESS NOTED. WILL CONTINUE TO MONITOR
--- NOTE | 2019-07-24 02:50 | NUR ---
I have reviewed this patient and I concur with the Shift Assessment completed by the Licensed Practical Nurse today this shift.
--- NOTE | 2019-07-24 06:03 | NUR ---
PT RESTING IN BED WITH EYES CLOSED. AWOKE EASILY TO VERBAL STIMULI. TOLERATED AM MEDS WITHOUT DIFFICULTY. NO NEEDS VOICED.
[2019-07-24 08:00] VITALS: BP 140/60
--- NOTE | 2019-07-24 19:30 | NUR ---
PT IS RESTING IN BED WATCHING TV. ALERT AND ORIENTED X 3. DENIES ACUTE PAIN OR DISCOMFORT AT THIS TIME. NO NEEDS VOICED. CABG AND PACEMAKER INCISIONS ARE ALL HEALING WELL. LEFT ARM IS IN A SLING. VSS. SR'S ARE UP X 2 IN BED. CALL LIGHT AND BEDSIDE TABLE ARE WITHIN EASY REACH.
--- NOTE | 2019-07-24 21:20 | NUR ---
PT IS RESTING IN BED WATCHING TV. NO NEEDS VOICED.
--- NOTE | 2019-07-24 23:47 | NUR ---
QUIET HOURS. PT LYING IN BED SUPINE HOB 30 DEGREES RECEIVING RESPIRATORY TREATMENT. RT NARCISO AT BEDSIDE.
--- NOTE | 2019-07-25 01:25 | NUR ---
I have reviewed this patient and I concur with the Shift Assessment completed by the Licensed Practical Nurse today this shift.
--- NOTE | 2019-07-25 03:28 | NUR ---
RESTING IN BED WITH EYES CLOSED.
--- NOTE | 2019-07-25 05:46 | NUR ---
PT RESTING IN BED WITH EYES CLOSED. AWOKE EASILY TO VERBAL STIMULI. TOLERATED AM MED WITHOUT DIFFICULTY. NO FURTHER NEEDS VOICED.
[2019-07-25 06:56] LABS: BASOPHILS 0.4 % (0-2); EOSINOPHILS 1.6 % (0-7); HEMATOCRIT 32.4 % (36.0-48.0); IMMATURE GRANULOCYTES 0.2 % (0-5); LYMPHOCYTES 23.8 % (15-50); MCHC 30.9 g/dL (31.0-37.0); MCV 97.3 fL (80.0-100.0); MEAN PLATELET VOLUME 10.1 fL (7.4-10.4); MONOCYTES 17.2 % (2-11); NEUTROPHILS 56.8 % (40-80); PLATELET COUNT 233 10x3/uL (130-400); RBC 3.33 10x6/uL (4.00-5.40); RDW 14.1 % (11.5-14.5)
[2019-07-25 07:10] LABS: CALC OSMOLALITY 280 mosm/kg (275-300); CALCIUM 7.8 mg/dL (8.5-10.1); CARBON DIOXIDE 30.2 mmol/L (21.0-32.0); CHLORIDE - SERUM 105 mmol/L (98-107); CREATININE - SERUM 0.7 mg/dL (0.6-1.3); GLUCOSE 93 mg/dL (74-106); POTASSIUM - SERUM 4.4 mmol/L (3.5-5.1); SODIUM 141 mmol/L (136-145); UREA NITROGEN 12 mg/dL (7-18); eGFR NON AFRICAN AMERICAN 86 mL/min (90-120)
[2019-07-25 08:00] VITALS: BP 127/47
--- NOTE | 2019-07-25 08:27 | NUR ---
SITTING UP IN BED FINISHING BREAKFAST. DENIES NEEDS. CALL LIGHT IN REACH
--- NOTE | 2019-07-25 14:28 | NUR ---
Nutrition Follow-up: Diet: Cardiac PO intake: 75% average x 3 meals. Pt states that her appetite is not great and that she does not like the food. She refuses oral nutrition supplements. Labs, meds, and skin assessment reviewed. Last BM 07/24/19. Wt: 167# (07/21/19), no new wt. Continue current diet. Encouraged PO intake. RD Following.
--- NOTE | 2019-07-25 19:17 | NUR ---
HUMIDIFIER ADDED TO O2 PER DR LEACH ORDER.
--- NOTE | 2019-07-25 19:35 | NUR ---
PT IS RESTING IN BED VISITING WITH FAMILY MEMBERS. ALERT AND ORIENTED X 3. DENIES ACUTE PAIN OR DISCOMFORT. INCISIONS TO CHEST AND LEGS ARE HEALING WELL. NO DRAINAGE NOTED. O2 IS ON @ 5LPM PER NC. NO SOB NOTED. LEFT ARM IS IN A SLING. SR'S ARE UP X 2 IN BED. CALL LIGHT AND BEDSIDE TABLE ARE WITHIN EASY REACH.
[2019-07-25 20:44] VITALS: BP 119/50
--- NOTE | 2019-07-25 22:07 | NUR ---
RESTING QUIETLY IN BED WITH EYES CLOSED. RESPS ARE EVEN AND UNLABORED. NO ACUTE DISTRESS NOTED.
--- NOTE | 2019-07-25 23:56 | NUR ---
RESTING QUIETLY IN BED WITH EYES CLOSED.
--- NOTE | 2019-07-26 01:13 | NUR ---
I have reviewed this patient and I concur with the Shift Assessment completed by the Licensed Practical Nurse today this shift.
--- NOTE | 2019-07-26 04:56 | NUR ---
RESTING IN BED WITH EYES CLOSED.
[2019-07-26 08:00] VITALS: BP 139/58
--- NOTE | 2019-07-26 08:00 | NUR ---
PT EATING BREAKFAST, DENIES NEEDS. WCTM.
--- NOTE | 2019-07-26 17:54 | NUR ---
PT EATING DINNER, DENIES NEEDS. WCTM.
--- NOTE | 2019-07-26 19:29 | NUR ---
GREETED PATIENT AND INTRODUCED MYSELF HER NURSE. PATIENT IS LAYING IN BED WATCHING TV. O2 AT 5L VIA NC. RESPIRATIONS EVEN. NO S/S OF DISTRESS. STATES NO EVIDENCE OF PAIN AT THIS TIME. DENIES ANY FURTHER NEEDS. CALL LIGHT IN REACH.
[2019-07-26 22:15] VITALS: BP 149/58
--- NOTE | 2019-07-27 00:47 | NUR ---
PT. RESTING QUIETLY WITH EYES CLOSED. O2 AT 5L IN USE VIA NC. RESPIRATIONS EVEN. NO S/S OF DISTRESS. SR UP X 2. BED IN LOWEST POSITION. CALL LIGHT IN REACH
--- NOTE | 2019-07-27 05:45 | NUR ---
PT. LAYING IN BED AWAKE. O2 AT 5L VIA NC. RESPIRATIONS EVEN. NO S/S OF DISTRESS. DENIES ANY NEEDS AT THIS TIME. CALL LIGHT IN REACH.
[2019-07-27 07:31] LABS: BASOPHILS 0.3 % (0-2); EOSINOPHILS 1.6 % (0-7); HEMATOCRIT 37.5 % (36.0-48.0); HEMOGLOBIN 11.5 g/dL (12-16); IMMATURE GRANULOCYTES 0.3 % (0-5); LYMPHOCYTES 26.6 % (15-50); MCH 29.9 pg (26.0-34.0); MCHC 30.7 g/dL (31.0-37.0); MCV 97.7 fL (80.0-100.0); MEAN PLATELET VOLUME 10.2 fL (7.4-10.4); MONOCYTES 14.5 % (2-11); NEUTROPHILS 56.7 % (40-80); PLATELET COUNT 259 10x3/uL (130-400); RBC 3.84 10x6/uL (4.00-5.40); RDW 14.3 % (11.5-14.5)
[2019-07-27 07:59] LABS: ANION GAP 12.5 mmol/L (8-16); CALCIUM 8.5 mg/dL (8.5-10.1); CARBON DIOXIDE 30.3 mmol/L (21.0-32.0); CREATININE - SERUM 0.9 mg/dL (0.6-1.3); POTASSIUM - SERUM 4.8 mmol/L (3.5-5.1)
[2019-07-27 08:04] VITALS: BP 128/50
[2019-07-27 08:08] LABS: WBC 6.4 10x3/uL (4.8-10.8)
--- NOTE | 2019-07-27 08:59 | NUR ---
PT PARTICIPATING IN THERAPY. PT AM MEDS ADMINISTERED. PT DENIES NEEDS. WCTM.
--- NOTE | 2019-07-27 19:14 | NUR ---
GREETED PATIENT AND INTRODUCED MYSELF HER NURSE. PATIENT IS LAYING IN BED WATCHING TV. O2 AT 5L VIA NC. RESPIRATIONS EVEN. NO S/S OF DISTRESS. DENIES ANY EVIDENCE OF PAIN. CALL LIGHT IN REACH.
[2019-07-27 22:00] VITALS: BP 131/48
--- NOTE | 2019-07-28 02:00 | NUR ---
PT. RESTING QUIETLY WITH EYES CLOSED. O2 AT 5L IN USE VIA NC. RESPIRATIONS EVEN. NO S/S OF DISTRESS. SR UP X 2. BED IN LOWEST POSITITION. CALL LIGHT IN REACH.
[2019-07-28 08:00] VITALS: BP 145/54
--- NOTE | 2019-07-28 08:00 | NUR ---
SHIFT ASSMT COMPLETED.
--- NOTE | 2019-07-28 11:00 | NUR ---
PLACED ON O2 AT 2L;STATED DOING IS.DOES NOT WANT TO WEAR OXYGEN WHEN DISCHARGED.EXPLAINED NEED AND BENIFITS BUT CONTINUES TO REFUSE OXYGEN WHEN GETS DISCHARGED HOME.WILL CONTINUE TO MONITOR.DROPS DOWN TO 86% AFTER AMBULATING AND TAKES ABOUT 3 MINS TO RECOVER TO 92%.
--- NOTE | 2019-07-28 13:43 | RHP ---
PATIENT: WILLIAMS GARCIA MEDICAL RECORD: [id number] ACCOUNT: [id number] LOCATION:[facility]17 : 40 ADMISSION DATE: 07/20/19 REHABILITATION HISTORY AND PHYSICAL EXAMINATION POST ADMISSION PHYSICIAN EXAMINATION POST ADMISSION PHYSICAL EXAMINATION AND HISTORY AND PHYSICAL DATE OF ADMISSION: 07/20/2019 ADMITTING DIAGNOSIS: Critical illness myopathy. HISTORY OF PRESENT ILLNESS: The patient is a 78-year-old female patient, who has got history of hypertension, coronary artery disease, tobacco use, and osteoarthritis. She was admitted to the hospital on July 05 and underwent coronary artery bypass grafting times 3. The patient had some postop complications including postop hypoxia, pleural effusions, atrial fib. On July 14, she had a left ultrasound-guided thoracentesis due to pleural effusion. She had 500 cc of serosanguineous fluid that was taken out. Later developed repeat episodes of complete heart block with syncope and underwent dual chamber pacemaker placement and atrial and ventricular leads placed on July 17 secondary to sick sinus syndrome and intermittent complete heart block. She has continued to progress slowly, but continued to require increased amounts of O2. She has some dyspnea on exertion and shortness of breath. She has been desatting down in the 80s even on supplemental O2. She is currently on telemetry, supplemental O2, updrafts. Has proximal muscle weakness, deconditioning, shortness of breath, dyspnea on exertion, impaired mobility, gait disturbance, and self-care deficits. These are all barriers to her discharge home. She lives at home alone. She was moderately independent with the use of rolling walker and independent with ADLs. Currently, she is mod assist with her mobility and set up for mod assist for ADLs. She plans to be able to return home hopefully at her prior level of functioning or better. Comorbidities include status post coronary artery bypass grafting on July 05, respiratory failure, atelectasis. She has got a history of gram-negative rods and hospital-acquired pneumonia, arrhythmia, bilateral pleural effusions, hypernatremia, elevated blood sugars, acute blood loss anemia, elevated AST, COPD, nicotine dependence, hypertension, dyslipidemia, osteoarthritis, anemia, and hypothyroidism. PAST MEDICAL HISTORY: Significant for vertigo, syncope, thyroid problems, hypertension, stents and angioplasty, coronary artery disease, COPD, chronic cough, shortness of breath, arthritis, joint problems, menopause, and tobacco use. PAST SURGICAL HISTORY: Includes appendectomy, right thyroidectomy, right carotid endarterectomy, left carotid endarterectomy, right total thyroidectomy, stent placement, now coronary artery bypass grafting. ALLERGIES: LIPITOR, STREPTOMYCIN, Zithromax, and Crestor. CURRENT MEDICATIONS: Include Floranex 460 mg daily, aspirin 81 mg daily, Protonix 40 mg daily, Synthroid 75 mcg daily, Senna 2 tabs daily, Mag-Ox 400 mg b.i.d., Mucinex 1 tab b.i.d., Colace 100 mg b.i.d., Ceftin 250 b.i.d., Atrovent updrafts as needed, budesonide 0.5 mg b.i.d., Brovana 15 mcg b.i.d., Nicoderm patch to apply daily, and Tylenol 500 mg every 6 hours p.r.n. HISTORY AND PHYSICAL [id number] WILLIAMS GARCIA HABITS: Does have a history of tobacco use. FAMILY HISTORY: Noncontributory. SOCIAL HISTORY: The patient hopes to return back home back to her prior level of functioning. REVIEW OF SYSTEMS: GENERAL: Does complain of weakness and fatigue. HEENT: Denies cold, cough, or congestion. CARDIOVASCULAR: Denies any chest pain. PHYSICAL EXAMINATION: VITAL SIGNS: Stable. She is afebrile. GENERAL: A well-developed female, in no acute distress upon exam. HEENT: Normocephalic and atraumatic. Mucosa moist. NECK: Supple. No lymphadenopathy. LUNGS: Clear at this time with no wheeze, rhonchi or rales. HEART: Regular rate and rhythm. No murmurs, rubs or gallops. ABDOMEN: Soft, benign, and nondistended. Positive bowel sounds times 4. EXTREMITIES: No clubbing, cyanosis or edema. NEUROLOGIC: Mainly intact. She does have proximal muscle weakness in her lower extremities, 3/5. LABORATORY DATA: White count of 6.8, H&H of 10.7 and 34.0, and platelet count was noted to be 333. Her sodium is 141, potassium 4.6, BUN and creatinine of 11 and 1.0, and blood sugar is noted to be 110. ASSESSMENT: This is a 78-year-old female patient admitted to the rehab with a working diagnosis of critical illness myopathy. The patient has potential to make improvement. We will institute the following multidisciplinary therapies including, but not limited to, physical, occupational, respiratory, speech, nutritional services, prosthetics, and orthotics. Given her complex medical condition and risks for more complications, rehabilitation services cannot be provided at a lower level of care such as a skilled nurse facility. PLAN: 1. Admit to [facility] for an inpatient therapy to include the following disciplines; A. Physical therapy to improve gait, all transfer skills, and bed mobility to modified independent level. B. Occupational therapy to modified independent level. C. Case management to assist with discharge planning and placement options. D. Nutrition to assist with nutritional needs. E. Rehabilitation nursing to assist in monitoring the patient's underlying medical conditions and to assist with any type of bowel or bladder management. 2. The patient's current medications and medical care will be continued. 3. The patient will be placed on standard fall precautions. 4. The patient's estimated length of stay is approximately 7-10 days. 5. We will discuss this patient during care team staff meeting this week. I am going to go ahead and see her again in the a.m. and watch her blood counts closely and I will treat appropriately. TRANSINT:[id number] Voice Confirmation ID: [id number] DOCUMENT ID: [id number] HISTORY AND PHYSICAL [id number] WILLIAMS GARCIA notes whether there has been none or any medical/functional change since admission: - No change since prescreen. SALOME attests patient continues to be appropriate for IRF: - Continues to be appropriate. AZEEM PADILLA MD at 1343 CC: [id number] DICTATION DATE: 07/21/19 0852 MACHINE OPERATOR HELPER: 07/21/19 0955 ADM IN [facility] [address] [id number]
--- NOTE | 2019-07-28 14:00 | NUR ---
SATS TEETERING AROUND 90-91-92 AT REST.PLACED ON 3L AND NOW SATS 93%.
--- NOTE | 2019-07-28 14:13 | NUR ---
NEBULIZER AND O2 HAS BEEN ORDERED WITH [facility].
--- NOTE | 2019-07-28 15:16 | NUR ---
PATIENT DISCHARGING HOME IN AM. PATIENT HAS DECLINED HOME HEALTH . ORDER HAS FREDY FAXED TO [facility] FOR HOME O2, PATIENT IS DECLINING USE OF O2, IT HAS BEEN ORDERED FOR HOME USE. DR. LOZANO 08/05/19 @ 12:00, DR. JENNINGS 08/17/19 @ 10:45, DR. FERRER 08/18/19 @ 1:00. PATIENT CHOICE FORM AND IMFM FORMS SIGNED, COPY GIVEN TO PATIENT AND FILED IN CHART. DISCHARGE INSTRUCTIONS WILL BE FAXED TO PCP AND WILL BE REVIEWED WITH PATIENT AT TIME OF DISCHARGE. WILL CONTINUE TO FOLLOW WITH PATIENT.
--- NOTE | 2019-07-28 20:00 | NUR ---
PATIENT RECEIVED SITTING UP IN BED WATCHING TV. ASSESSMENT & VITAL SIGNS DONE. BED LOW. CALL LIGHT WITHIN REACH. WILL CONTINUE TO MONITOR.
--- NOTE | 2019-07-28 20:00 | NUR ---
PATIENT RECEIVED SITTING UP IN BED. ASSESSMENT & VITAL SIGNS DONE. YAN PATENT WITH YELLOW COLOR URINE. FEET ELEVATED ON PILLOW. BED LOW. CALL LIGHT WITHIN REACH. WILL CONTINUE TO MONITOR.
[2019-07-28 21:16] VITALS: BP 136/52
--- NOTE | 2019-07-29 02:30 | NUR ---
PATIENT EYES CLOSED. RESPIRATIONS 18 & EVEN. BED LOW. CALL LIGHT WITHIN REACH. WILL CONTINUE TO MONIOTR.
--- NOTE | 2019-07-29 07:45 | NUR ---
18GA CATH STARTED [facility] FOR CTA ORDERED PER .
[2019-07-29 08:00] VITALS: BP 136/49
--- NOTE | 2019-07-29 09:30 | NUR ---
PLACED ON BEDREST FOR POSITIVE PE PER . NOTIFIED;SPOKE WITH BRIANNA AT OFFICE AND STATED TO NOTIFY TO SEE IF SHE CAN BE DC;D ON XARALTO OR ELIQUIS.NOTIFIED 'S OFFICE AND OFFICE STATED THEY WILL RELAY MESSAGE TO ROUND HERE ON PT FIRST.
--- NOTE | 2019-07-29 10:31 | NUR ---
NUTRITION F//U PT TOLERATING AHA DIET WITH > 75% AVERAGE INTAKE RECENT MEALS. +BM RECORDED 07/28/19. REFUSES NUTRITIONAL SUPPLEMENTS. WILL CONTINUE TO PROVIDE DIET, MONITOR PO INTAKE. RD FOLLOWING
--- NOTE | 2019-07-29 11:45 | NUR ---
SPOKE WITH ON PHONE.WILL DISCHARGE AND MOVE TO ACUTE.NOTIFIED .ADMITTING TO .
--- NOTE | 2019-07-29 12:30 | NUR ---
REPORT CALLED TO BABITA ON MED 2.
[2019-07-29] MEDS ORDERED: ATROVENT 0.02%2.5 ML UPD (12:59)
[2019-07-29] MEDS ORDERED: LOVENOX80 MG/0.8 SC (13:01)
[2019-07-29] MEDS ORDERED: AYR SALINE50 ML NS (13:11)
--- NOTE | 2019-07-29 13:40 | NUR ---
DISCHARGED TO ACUTE CARE/BED TO ROOM 2136 FOR NEW DX:PE.BEDREST TODAY PER .
== END 2019-07-29 13:44 | disposition short-term general hospital (02) | DRG 91 ==
LOC: D.REHAB 15:54
PROVIDERS: ADMIT Emergency Medicine; ATTEND Emergency Medicine
DX: G72.81 Critical illness myopathy (principal); I50.33 Acute on chronic diastolic (congestive) heart failure; J15.6 Pneumonia due to other Gram-negative bacteria; J96.01 Acute respiratory failure with hypoxia; J98.11 Atelectasis; J90 Pleural effusion, not elsewhere classified; D62 Acute posthemorrhagic anemia; E87.0 Hyperosmolality and hypernatremia; F17.203 Nicotine dependence unspecified, with withdrawal; I48.91 Unspecified atrial fibrillation; E78.5 Hyperlipidemia, unspecified; J44.9 Chronic obstructive pulmonary disease, unspecified; I27.20 Pulmonary hypertension, unspecified; I11.0 Hypertensive heart disease with heart failure; R53.81 Other malaise; M19.90 Unspecified osteoarthritis, unspecified site; E03.9 Hypothyroidism, unspecified; I25.10 Atherosclerotic heart disease of native coronary artery without angina pectoris

== ENCOUNTER 2019-07-29 14:15 | Inpatient (IN) | payer MEDICARE, BC ==
[~2019-07-29] VITALS: Ht 170.2 cm; Wt 72.7 kg
[~2019-07-29 14:15] MED LIST changes: +AYR SALINE50 ML NS; +LOVENOX80 MG/0.8 SC
--- NOTE | 2019-07-29 14:41 | NUR ---
RECEIVED VIA HOSPITAL BED FROM REHAB WITH DX OF PE. SHE IS ALERT AND ORIENT. O2 ON AT 3 LITERS PER MINUTE PER N/C. SHE IS SHORT OF BREATH WITH EVEN SLIGHT EXERCTION. SHE HAS LEFT ARM IN SLING DUE TO RECENT PACEMAKER PLACEMENT. ALL INCISIONAL AREAS ARE HEALING WELL WITH GLUE INTACT. BBS ARE DIMINISHED. TELEMETRY IS ON. SHE IS AWARE OF ORDER FOR BEDREST AT LEAST TODAY. SHE USES A BEDPAN AND IS CONTINENT OF B/B. ORIENT TO ROOM AND HOW TO USE CL. BED IS LOCKED AND IN LOWEST POSITION. SAFETY PRECAUTIONS ARE IN PLACE. DENIES ANY CURRENT PAIN OR NEEDS.
[2019-07-29 16:04] VITALS: BP 105/57
--- NOTE | 2019-07-29 18:15 | NUR ---
SHE HAS OFFERED NO C/O. CL IN REACH. O2 ON. NO CHANGE IN CONDITION NOTED. CONT CURRENT POC AND MONITOR
[2019-07-29 19:27] VITALS: BP 115/68; Ht 170.2 cm; Wt 72.7 kg
--- NOTE | 2019-07-29 19:30 | NUR ---
PT CARE ASSUMED. PT LEFT ARM IN A SLING. RR EVEN AND UNLABORED ON O2 3L NC. NO S/S OF DISTRESS NOTED AT THIS TIME. NO FUTHER NEEDS EXPRESSED. CALL LIGHT IN REACH. WILL CTM.
[2019-07-29 20:02] VITALS: BP 130/55
[2019-07-29 23:36] VITALS: BP 138/53
--- NOTE | 2019-07-30 03:14 | NUR ---
PT RESTING QUETLY DURING THE NIGHT. RR EVEN AND NONLABORED. NO C/O OR CONCERNS AT THIS TIME. CALL LIGHT IN REACH. PIA LOPEZ.
[2019-07-30 04:45] VITALS: BP 135/60
[2019-07-30 05:53] LABS: BASOPHILS 0.7 % (0-2); HEMATOCRIT 33.3 % (36.0-48.0); HEMOGLOBIN 10.2 g/dL (12-16); LYMPHOCYTES 22.8 % (15-50); MCH 29.4 pg (26.0-34.0); MCHC 30.6 g/dL (31.0-37.0); MEAN PLATELET VOLUME 9.7 fL (7.4-10.4); MONOCYTES 13.4 % (2-11); NEUTROPHILS 60.1 % (40-80); PLATELET COUNT 269 10x3/uL (130-400); RBC 3.47 10x6/uL (4.00-5.40); RDW 13.8 % (11.5-14.5); WBC 4.6 10x3/uL (4.8-10.8)
[2019-07-30 05:56] LABS: ANION GAP 10.8 mmol/L (8-16); CALCIUM 8.5 mg/dL (8.5-10.1); CARBON DIOXIDE 30.6 mmol/L (21.0-32.0); CREATININE - SERUM 0.8 mg/dL (0.6-1.3); PHOSPHOROUS 4.2 mg/dL (2.5-4.9); POTASSIUM - SERUM 4.4 mmol/L (3.5-5.1)
[2019-07-30 06:02] LABS: APTT 35.6 SECONDS (22.8-39.4); INR 1.15 (0.85-1.17); PROTIME 14.2 SECONDS (11.6-15.0)
[2019-07-30 08:00] VITALS: BP 143/62
--- NOTE | 2019-07-30 08:12 | NUR ---
REPORT RECIEVED. PT SITING UP IN BED. RR EVEN AND UNLABORED ON 3L NC. SHE HAS A L AC PIV THAT IS SL. DISCUSSED WITH PT ABOUT STRICT BEDREST UNTIL DR SEES HER. BED LOCKED AND IN LOWEST POSITION, CALL LIGHT WTIHIN REACH. WILL CTM
[2019-07-30 12:00] VITALS: BP 112/50
--- NOTE | 2019-07-30 12:12 | MORECARE ---
CASE MANAGEMENT DISCHARGE SUMMARY PATIENT: WILLIAMS GARCIA UNIT: [id number] ADM DATE: 07/29/19 AGE: 78 : 40 SEX: F ROOM/BED: D.2136 AUTHOR: NII SEO PHYSICIAN: REFERRING PHYSICIAN: CHRISSY GOMEZ MD DATE OF SERVICE: 07/30/19 Discharge Plan Patient Name: WILLIAMS GARCIA [facility] [facility] 1940 Planned Disposition: Home Anticipated Discharge Date: 07/31/19 Discharge Date: Expected LOS: 2 Initial Reviewer: [email or web address] Initial Review Date: 07/29/2019 Generated: 07/30/19 1:12 pm Patient Name: WILLIAMS GARCIA Page [id number] at 1212 All edits/amendments must be made on the electronic document DICTATION DATE: 07/30/19 1212 INSPECTOR GENERAL: CHRIS 07/30/19 1212 RPT#: [id number] DC DATE: STATUS: ADM IN [facility] [address] [place] [address] END OF REPORT
--- NOTE | 2019-07-30 12:19 | MORECARE ---
CASE MANAGEMENT DISCHARGE SUMMARY PATIENT: WILLIAMS PATEL UNIT: [id number] ADM DATE: 07/29/19 AGE: 78 : 40 SEX: F ROOM/BED: D.2136 AUTHOR: NII SEO PHYSICIAN: REFERRING PHYSICIAN: CHRISSY GOMEZ MD DATE OF SERVICE: 07/30/19 Discharge Plan Patient Name: WILLIAMS PATEL Facility: [facility]:[place] : 1940 Planned Disposition: Home Anticipated Discharge Date: 07/31/19 Discharge Date: Expected LOS: 2 Initial Reviewer: [email or web address] Initial Review Date: 07/29/2019 Generated: 07/30/19 1:18 pm DCPIA - Discharge Planning Initial Assessment Updated by [email or web address]: Salima Gu on 07/30/19 12:16 pm * Is the patient Alert and Oriented? Yes * How many steps to enter\exit or inside your home? * PCP Dr. Geiger * Pharmacy [facility] [address] * Preadmission Environment Home Alone * ADLs Independent * Equipment Cane * List name and contact numbers for known caregivers / representatives who currently or will assist patient after discharge: Matty Patel - [facility] - [phone] * Verbal permission to speak to the caregivers and representatives has been obtained from the patient. Yes * Community resources currently utilized None * Additional services required to return to the preadmission environment? Yes * Can the patient safely return to the preadmission environment? Yes * Has this patient been hospitalized within the prior 30 days at any hospital? Yes Last DP export: 07/30/19 11:12 Patient Name: WILLIAMS PATEL Page [id number] at 1219 All edits/amendments must be made on the electronic document DICTATION DATE: 07/30/191217 FIRE SPRINKLER APPARATUS INSPECTOR: CHRIS 07/30/191217 RPT#: [id number] DC DATE: STATUS: ADM IN [facility] [address] [place] [address] END OF REPORT
--- NOTE | 2019-07-30 12:37 | MORECARE ---
CASE MANAGEMENT DISCHARGE SUMMARY PATIENT: WILLIAMS PATEL UNIT: [id number] ADM DATE: 07/29/19 AGE: 78 : 40 SEX: F ROOM/BED: D.5730 AUTHOR: NII SEO PHYSICIAN: REFERRING PHYSICIAN: CHRISSY GOMEZ MD DATE OF SERVICE: 07/30/19 Discharge Plan Patient Name: WILLIAMS PATEL Facility: [facility]:[place] : 1940 Planned Disposition: Home Anticipated Discharge Date: 07/31/19 Discharge Date: Expected LOS: 2 Initial Reviewer: [email or web address] Initial Review Date: 07/29/2019 Generated: 07/30/19 1:37 pm Comments DCP- Discharge Planning Updated by [email or web address]: Salima Gu on 07/30/19 11:[address] DC PLAN: Return home alone. Refused Home Health. ANTICIPATED DC NEEDS: Nebulizer and O2 ordered though in rehab with [facility]. CM met with patient to complete initial dc planning assessment. CM educated patient on the CM role and verbal consent given by patient to complete assessment. CM verified patient's address, phone number, and emergency contact phone numbers. Patient lives at home alone and reports she is independent in her care at home. At discharge patient plans to return home and feels this is a safe discharge. CM discussed availability of home health, rehab services, and medical equipment. Patient is refusing home health at this time. During her rehab stay the cm in rehab has ordered her oxygen and nebulizer through [facility]. Cm spoke to Alexx norton/ brigitte who stated she will require new oxygen testing (walk test ordered) and a order for the nebulizer medications. Cm will fax neb med order and walk test results once completed to [facility] @ [phone]. Alexx reports the oxygen has already been delivered to the patient's room and the nebulizer will be delivered to her tomorrow prior to dc. [facility] signed for no dme preference during assessment. Patient denied further known discharge needs at this time. Patient reports her son will transport her home at time of discharge. CM will continue to follow and will assist as needed with dc plans/needs. Salima Gu RN, [facility] DCPIA - Discharge Planning Initial Assessment Updated by [email or web address]: Salima Gu on 07/30/19 12:16 pm * Is the patient Alert and Oriented? Yes * How many steps to enter\exit or inside your home? * PCP Dr. Geiger * Pharmacy [facility] [address] * Preadmission Environment Home Alone * ADLs Independent * Equipment Cane * List name and contact numbers for known caregivers / representatives who currently or will assist patient after discharge: Matty Patel - nu - [phone] * Verbal permission to speak to the caregivers and representatives has been obtained from the patient. Yes * Community resources currently utilized None * Additional services required to return to the preadmission environment? Yes * Can the patient safely return to the preadmission environment? Yes * Has this patient been hospitalized within the prior 30 days at any hospital? Yes Last DP export: 07/30/19 11:19 Patient Name: WILLIAMS PATEL Page [phone] at 1237 All edits/amendments must be made on the electronic document DICTATION DATE: 07/30/19 1237 FLATWORK FEEDER: CHRIS 07/30/19 1237 RPT#: [id number] DC DATE: STATUS: ADM IN [facility] [address] [place] [address] END OF REPORT
--- NOTE | 2019-07-30 12:44 | MORECARE ---
CASE MANAGEMENT DISCHARGE SUMMARY PATIENT: WILLIAMS PATEL UNIT: [id number] ADM DATE: 07/29/19 AGE: 78 : 40 SEX: F ROOM/BED: D.8503 AUTHOR: NII SEO PHYSICIAN: REFERRING PHYSICIAN: CHRISSY GOMEZ MD DATE OF SERVICE: 07/30/19 Discharge Plan Patient Name: WILLIAMS PATEL Facility: [facility]:[place] : 1940 Planned Disposition: Home Anticipated Discharge Date: 07/31/19 Discharge Date: Expected LOS: 2 Initial Reviewer: [email or web address] Initial Review Date: 07/29/2019 Generated: 07/30/19 1:43 pm Comments DCP- Discharge Planning Updated by [email or web address]: Salima Gu on 07/30/19 11:[address] DC PLAN: Return home alone. Refused Home Health. ANTICIPATED DC NEEDS: Nebulizer and O2 ordered though in rehab with [facility]. CM met with patient to complete initial dc planning assessment. CM educated patient on the CM role and verbal consent given by patient to complete assessment. CM verified patient's address, phone number, and emergency contact phone numbers. Patient lives at home alone and reports she is independent in her care at home. At discharge patient plans to return home and feels this is a safe discharge. CM discussed availability of home health, rehab services, and medical equipment. Patient is refusing home health at this time. During her rehab stay the cm in rehab has ordered her oxygen and nebulizer through [facility]. Cm spoke to Alexx norton/ brigitte who stated she will require new oxygen testing (walk test ordered) and a order for the nebulizer medications. Cm will fax neb med order and walk test results once completed to [facility] @ [phone]. Alexx reports the oxygen has already been delivered to the patient's room and the nebulizer will be delivered to her tomorrow prior to dc. [facility] signed for no dme preference during assessment. Patient denied further known discharge needs at this time. Patient reports her son will transport her home at time of discharge. CM will continue to follow and will assist as needed with dc plans/needs. Salima Gu RN, [facility] DCPIA - Discharge Planning Initial Assessment Updated by [email or web address]: Salima Gu on 07/30/19 12:16 pm * Is the patient Alert and Oriented? Yes * How many steps to enter\exit or inside your home? * PCP Dr. Geiger * Pharmacy [facility] [address] * Preadmission Environment Home Alone * ADLs Independent * Equipment Cane * List name and contact numbers for known caregivers / representatives who currently or will assist patient after discharge: Matty Patel - nu - [phone] * Verbal permission to speak to the caregivers and representatives has been obtained from the patient. Yes * Community resources currently utilized None * Additional services required to return to the preadmission environment? Yes * Can the patient safely return to the preadmission environment? Yes * Has this patient been hospitalized within the prior 30 days at any hospital? Yes Last DP export: 07/30/19 11:37 Patient Name: WILLIAMS PATEL Page [id number] at 1244 All edits/amendments must be made on the electronic document DICTATION DATE: 07/30/19 124 TECHNOLOGY SPECIALIST: CHRIS 07/30/19 124 RPT#: [id number] DC DATE: STATUS: ADM IN [facility] [address] [place] [address] END OF REPORT
--- NOTE | 2019-07-30 12:51 | MORECARE ---
CASE MANAGEMENT DISCHARGE SUMMARY PATIENT: WILLIAMS PAETL UNIT: [id number] ADM DATE: 07/29/19 AGE: 78 : 40 SEX: F ROOM/BED: D.7220 AUTHOR: NII SEO PHYSICIAN: REFERRING PHYSICIAN: CHRISSY GOMEZ MD DATE OF SERVICE: 07/30/19 Discharge Plan Patient Name: WILLIAMS PATEL Facility: [facility]:[place] : 1940 Planned Disposition: Home Anticipated Discharge Date: 07/31/19 Discharge Date: Expected LOS: 2 Initial Reviewer: [email or web address] Initial Review Date: 07/29/2019 Generated: 07/30/19 1:51 pm Comments DCP- Discharge Planning Updated by [email or web address]: Salima Gu on 07/30/19 11:[address] DC PLAN: Return home alone. Refused Home Health. ANTICIPATED DC NEEDS: Nebulizer and O2 ordered though in rehab with [facility]. CM met with patient to complete initial dc planning assessment. CM educated patient on the CM role and verbal consent given by patient to complete assessment. CM verified patient's address, phone number, and emergency contact phone numbers. Patient lives at home alone and reports she is independent in her care at home. At discharge patient plans to return home and feels this is a safe discharge. CM discussed availability of home health, rehab services, and medical equipment. Patient is refusing home health at this time. During her rehab stay the cm in rehab has ordered her oxygen and nebulizer through [facility]. Cm spoke to Alexx norton/ brigitte who stated she will require new oxygen testing (walk test ordered) and a order for the nebulizer medications. Cm will fax neb med order and walk test results once completed to [facility] @ [phone]. Alexx reports the oxygen has already been delivered to the patient's room and the nebulizer will be delivered to her tomorrow prior to dc. [facility] signed for no dme preference during assessment. Patient denied further known discharge needs at this time. Patient reports her son will transport her home at time of discharge. CM will continue to follow and will assist as needed with dc plans/needs. Salima Gu RN, [facility] DCPIA - Discharge Planning Initial Assessment Updated by [email or web address]: Salima Gu on 07/30/19 12:16 pm * Is the patient Alert and Oriented? Yes * How many steps to enter\exit or inside your home? * PCP Dr. Geiger * Pharmacy [facility] [address] * Preadmission Environment Home Alone * ADLs Independent * Equipment Cane * List name and contact numbers for known caregivers / representatives who currently or will assist patient after discharge: Matty Patel - [facility] - [phone] * Verbal permission to speak to the caregivers and representatives has been obtained from the patient. Yes * Community resources currently utilized None * Additional services required to return to the preadmission environment? Yes * Can the patient safely return to the preadmission environment? Yes * Has this patient been hospitalized within the prior 30 days at any hospital? Yes External Providers External Provider: Renetta Brambila Contact Date: Service Request Date: Service Type: Resolution: Reviewer: Comments: Last DP export: 07/30/19 11:44 Patient Name: WILLIAMS PATEL Page [phone] at 1251 All edits/amendments must be made on the electronic document DICTATION DATE: 07/30/19 1251 SEISMIC PROSPECTING OBSERVER HELPER: CHRIS 07/30/19 1251 RPT#: [id number] DC DATE: STATUS: ADM IN [facility] [address] [place] [address] END OF REPORT
--- NOTE | 2019-07-30 15:27 | NUR ---
I have reviewed this patient and I concur with the Shift Assessment completed by the Licensed Practical Nurse today this shift.
[2019-07-30 16:00] VITALS: BP 132/69
--- NOTE | 2019-07-30 19:30 | NUR ---
PT SITTING UP IN BED A/O X4. 4L OF O2NC. PT COMPLAINS OF DRY BLOODY NOSE. HUMIDIFIER APPLIED TO O2. PT RUNNING 93%. NO S/S OF DISTRESS. VITALS STABLE. [facility] BBB. PT INSTRUCTED TO CALL WHEN NEEDING ASSISTANCE TO BATHROOM. BED LOW CALL LIGHT WITHIN REACH. WILL CONTINUE TO MONITOR.
[2019-07-30 20:35] VITALS: BP 139/55
[2019-07-30 23:52] VITALS: BP 122/51
--- NOTE | 2019-07-31 01:01 | NUR ---
PT RESTING IN BED WITH EYES CLOSED RR EVEN AND UNLABORED. NO S/S OF DISTRESS AT THIS TIME. BED LOW CALL LIGHT WITHIN REACH. WILL CONTINUE TO MONITOR.
[2019-07-31 04:02] VITALS: BP 142/61
--- NOTE | 2019-07-31 04:14 | NUR ---
I have reviewed this patient and I concur with the Shift Assessment completed by the Licensed Practical Nurse today this shift.
[2019-07-31 04:57] LABS: BASOPHILS 0.2 % (0-2); EOSINOPHILS 3.8 % (0-7); HEMATOCRIT 33.2 % (36.0-48.0); HEMOGLOBIN 10.2 g/dL (12-16); IMMATURE GRANULOCYTES 0.2 % (0-5); MCH 29.7 pg (26.0-34.0); MCHC 30.7 g/dL (31.0-37.0); MCV 96.8 fL (80.0-100.0); MEAN PLATELET VOLUME 9.8 fL (7.4-10.4); MONOCYTES 15.6 % (2-11); NEUTROPHILS 57.2 % (40-80); PLATELET COUNT 274 10x3/uL (130-400); RBC 3.43 10x6/uL (4.00-5.40); RDW 14.1 % (11.5-14.5); WBC 5.1 10x3/uL (4.8-10.8)
[2019-07-31 05:11] LABS: ANION GAP 9.5 mmol/L (8-16); CALCIUM 8.4 mg/dL (8.5-10.1); CARBON DIOXIDE 28.8 mmol/L (21.0-32.0); CREATININE - SERUM 0.8 mg/dL (0.6-1.3); MAGNESIUM - SERUM 2.2 mg/dL (1.8-2.4); PHOSPHOROUS 4.3 mg/dL (2.5-4.9); POTASSIUM - SERUM 4.3 mmol/L (3.5-5.1)
--- NOTE | 2019-07-31 05:58 | NUR ---
PT RESTING WITH EYES CLOSED RR EVEN AND UNLABORED. NO S/S OF DISTRESS AT THIS TIME. BED LOW CALL LIGHT WITHIN REACH. WILL CONTINUE TO MONITOR.
[2019-07-31 08:47] VITALS: BP 161/71
[2019-07-31] MEDS ORDERED: ELIQUIS5 MG PO (09:45)
[2019-07-31 12:07] VITALS: BP 127/58
[2019-07-31 13:04] VITALS: BP 127/58
--- NOTE | 2019-07-31 14:15 | MORECARE ---
CASE MANAGEMENT DISCHARGE SUMMARY PATIENT: WILLIAMS PATEL UNIT: [id number] ADM DATE: 07/29/19 AGE: 78 : 40 SEX: F ROOM/BED: D.1166 AUTHOR: GABBI,DOC PHYSICIAN: REFERRING PHYSICIAN: CHRISSY GOMEZ MD DATE OF SERVICE: 07/31/19 Discharge Plan Patient Name: WILLIAMS PATEL Facility: [facility]:[place] : 1940 Planned Disposition: Home Anticipated Discharge Date: 07/31/19 Discharge Date: 07/31/2019 Expected LOS: 2 Initial Reviewer: [id number] Initial Review Date: 07/29/2019 Generated: 07/31/19 3:14 pm Comments DCP- Discharge Planning Updated by [email or web address]: Salima Gu on 07/31/19 1:[address] Patient discharging home today with [facility] providing home oxygen and a nebulizer. Patient again refused home health. Her son in in the room and is going to transport her home today. Salima Gu RN, [facility] DCP- Discharge Planning Updated by [email or web address]: Salima Gu on 07/30/19 11:[address] DC PLAN: Return home alone. Refused Home Health. ANTICIPATED DC NEEDS: Nebulizer and O2 ordered though [facility] in rehab with [facility]. CM met with patient to complete initial dc planning assessment. CM educated patient on the CM role and verbal consent given by patient to complete assessment. CM verified patient's address, phone number, and emergency contact phone numbers. Patient lives at home alone and reports she is independent in her care at home. At discharge patient plans to return home and feels this is a safe discharge. CM discussed availability of home health, rehab services, and medical equipment. Patient is refusing home health at this time. During her rehab stay the cm in rehab has ordered her oxygen and nebulizer through [facility]. Cm spoke to Alexx briggs who stated she will require new oxygen testing (walk test ordered) and a order for the nebulizer medications. Cm will fax neb med order and walk test results [facility] @ [phone]. Alexx reports the oxygen has already been delivered to the patient's room and the nebulizer will be delivered to her tomorrow prior to dc. PAULO signed for no dme preference during assessment. Patient denied further known discharge needs at this time. Patient reports her son will transport her home at time of discharge. CM will continue to follow and will assist as needed with dc plans/needs. Salima Gu RN, CCM DCPIA - Discharge Planning Initial Assessment Updated by [email or web address]: Salima Gu on 07/30/19 12:16 pm * Is the patient Alert and Oriented? Yes * How many steps to enter\exit or inside your home? * PCP Dr. Geiger * Pharmacy [facility] - [address] * Preadmission Environment Home Alone * ADLs Independent * Equipment Cane * List name and contact numbers for known caregivers / representatives who currently or will assist patient after discharge: Matty Patel - son - [phone] * Verbal permission to speak to the caregivers and representatives has been obtained from the patient. Yes * Community resources currently utilized None * Additional services required to return to the preadmission environment? Yes * Can the patient safely return to the preadmission environment? Yes * Has this patient been hospitalized within the prior 30 days at any hospital? Yes Coverage Notice Reviewer: [id number] - Salima Gu Notice Issued Date-Time: 07/31/2019 13:30 Notice Type: IM Discharge Notice Notice Delivered To: Patient Relationship to Patient: Sound System Installer Name: Delivery Method: HAND - Hand Delivered Lida Days: Prior Verbal Notification: Recipient Understood Notice: Recipient Signature: Med Rec Note Co-signed by Attending: Coverage Notice Comment: DC IMM delivered, explained, signed by the patient, and placed in his chart. Signed form also left with patient. Salima Gu RN , [facility] Last DP export: 07/30/19 11:51 Patient Name: WILLIAMS PATEL Page [id number] at 1415 All edits/amendments must be made on the electronic document DICTATION DATE: 07/31/191413 BARREL WATERER: CHRIS 07/31/191413 RPT#: [id number] DC DATE:07/31/19 STATUS: DIS IN [facility] [address] [place] [address] END OF REPORT
--- NOTE | 2019-08-01 08:59 | MORECARE ---
CASE MANAGEMENT DISCHARGE SUMMARY PATIENT: WILLIAMS PATEL UNIT: [id number] ADM DATE: 07/29/19 AGE: 78 : 40 SEX: F ROOM/BED: D.3796 AUTHOR: GABBI,DOC PHYSICIAN: REFERRING PHYSICIAN: CHRISSY GOMEZ MD DATE OF SERVICE: 08/01/19 Discharge Plan Patient Name: WILLIAMS PATEL Facility: [facility]:[place] : 1940 Planned Disposition: Home Anticipated Discharge Date: 07/31/19 Discharge Date: 07/31/2019 Expected LOS: 2 Initial Reviewer: [id number] Initial Review Date: 07/29/2019 Generated: 08/01/19 9:59 am Comments DCP- Discharge Planning Updated by [email or web address]: Salima Gu on 07/31/19 1:[address] Patient discharging home today with [facility] providing home oxygen and a nebulizer. Patient again refused home health. Her son in in the room and is going to transport her home today. Salima Gu RN, [facility] DCP- Discharge Planning Updated by [email or web address]: Salima Gu on 07/30/19 11:[address] DC PLAN: Return home alone. Refused Home Health. ANTICIPATED DC NEEDS: Nebulizer and O2 ordered though [facility] in rehab with [facility]. CM met with patient to complete initial dc planning assessment. CM educated patient on the CM role and verbal consent given by patient to complete assessment. CM verified patient's address, phone number, and emergency contact phone numbers. Patient lives at home alone and reports she is independent in her care at home. At discharge patient plans to return home and feels this is a safe discharge. CM discussed availability of home health, rehab services, and medical equipment. Patient is refusing home health at this time. During her rehab stay the cm in rehab has ordered her oxygen and nebulizer through [facility]. Cm spoke to Alexx briggs who stated she will require new oxygen testing (walk test ordered) and a order for the nebulizer medications. Cm will fax neb med order and walk test results [facility] @ [phone]. Alexx reports the oxygen has already been delivered to the patient's room and the nebulizer will be delivered to her tomorrow prior to dc. PAULO signed for no dme preference during assessment. Patient denied further known discharge needs at this time. Patient reports her son will transport her home at time of discharge. CM will continue to follow and will assist as needed with dc plans/needs. Salima Gu RN, CCM DCPIA - Discharge Planning Initial Assessment Updated by [email or web address]: Salima Gu on 07/30/19 12:16 pm * Is the patient Alert and Oriented? Yes * How many steps to enter\exit or inside your home? * PCP Dr. Geiger * Pharmacy [facility] - [address] * Preadmission Environment Home Alone * ADLs Independent * Equipment Cane * List name and contact numbers for known caregivers / representatives who currently or will assist patient after discharge: Matty Patel - son - [phone] * Verbal permission to speak to the caregivers and representatives has been obtained from the patient. Yes * Community resources currently utilized None * Additional services required to return to the preadmission environment? Yes * Can the patient safely return to the preadmission environment? Yes * Has this patient been hospitalized within the prior 30 days at any hospital? Yes Coverage Notice Reviewer: [id number] - Salima Gu Notice Issued Date-Time: 07/31/2019 13:30 Notice Type: IM Discharge Notice Notice Delivered To: Patient Relationship to Patient: Mounter Sousaphones Name: Delivery Method: HAND - Hand Delivered Lida Days: Prior Verbal Notification: Recipient Understood Notice: Recipient Signature: Med Rec Note Co-signed by Attending: Coverage Notice Comment: DC IMM delivered, explained, signed by the patient, and placed in his chart. Signed form also left with patient. Salima Gu RN , [facility] Last DP export: 07/31/19 1:15 Patient Name: WILLIAMS PATEL Page [phone] at 0859 All edits/amendments must be made on the electronic document DICTATION DATE: 08/01/19857 AMMONIUM HYDROXIDE OPERATOR: CHRIS 08/01/19857 RPT#: [id number] DC DATE:07/31/19 STATUS: DIS IN [facility] [address] [place] [address] END OF REPORT
== END 2019-07-31 13:30 | disposition home or self-care (01) | DRG 175 ==
LOC: D.M2 14:15
PROVIDERS: ADMIT Internal Medicine Nephrology; ATTEND Internal Medicine Nephrology
DX: I26.99 Other pulmonary embolism without acute cor pulmonale (principal); J96.01 Acute respiratory failure with hypoxia; I50.23 Acute on chronic systolic (congestive) heart failure; J44.1 Chronic obstructive pulmonary disease with (acute) exacerbation; F17.213 Nicotine dependence, cigarettes, with withdrawal; J98.11 Atelectasis; G72.81 Critical illness myopathy; I27.20 Pulmonary hypertension, unspecified; I48.91 Unspecified atrial fibrillation; I25.10 Atherosclerotic heart disease of native coronary artery without angina pectoris; E03.9 Hypothyroidism, unspecified; E78.5 Hyperlipidemia, unspecified; I11.0 Hypertensive heart disease with heart failure; Z95.0 Presence of cardiac pacemaker; D64.9 Anemia, unspecified

== ENCOUNTER → 2019-09-02 09:32 | Outpatient (CLI) | payer MEDICARE, BC ==
[2019-07-29 19:27] VITALS: BMI 18.8
[~2019-09-02 09:32] MED LIST changes: +ELIQUIS5 MG PO
== END | disposition home or self-care (01) ==
LOC: D.RAD 09:32
PROVIDERS: ATTEND Internal Medicine Pulmonary Disease
DX: J90 Pleural effusion, not elsewhere classified (principal)